=== PATIENT | female | born 1950 | race Hispanic/Latino ===

== ENCOUNTER 2016-05-27 14:26 | Inpatient (IN) | payer OTHER ==
[~2016-05-27] VITALS: Ht 149.9 cm; Wt 52.8 kg
[~2016-05-27 14:26] MED LIST: ALENDRONATE SOD70 M1 PO; ALENDRONATE SOD70 M2 PO; AZITHROMYCIN500 M3 PO; BACTRIM DS 8001 TAB PO; CELEBREX100 M1 PO; CELEBREX100 MG PO; CITALOPRAM HBR20 MG PO; CYCLOBENZAPRINE10 M1 PO; CYCLOBENZAPRINE10 M3 PO; DILAUDID2 MG PO; FENTANYL TR50 MCG/HR TOP; FLEXERIL10 MG PO; FUROSEMIDE20 M1 PO; FUROSEMIDE20 MG PO; GABAPENTIN300 M2 PO; GENVOYA TABLET1 EACH PO; IMODIUM A-D2 M1 PO; IMODIUM2 MG PO; LASIX40 M1 PO; LUNESTA3 M1 PO; LUNESTA3 MG PO; METOCLOPRAMIDE5 MG PO; MORPHINE SULFAT15 M4 PO; MULTIPLE VITAM1 EAC2 PO; OMEPRAZOLE40 MG PO; OS-CAL 500+D31 EAC1 PO; OXYCODONE HCL15 M1 PO; PANTOPRAZOLE SO40 M1 PO; POTASSIUM CHLO10 ME1 PO; POTASSIUM CHLO10 ME4 PO; PREDNISONE10 M2 PO; PREDNISONE10 MG PO; PROAIR HFA8.5 GM INH; PROPRANOLOL HCL20 M1 PO; REGLAN5 MG PO; ROXICODONE5 MG PO; SKELAXIN800 M1 PO; STRIBILD1 TAB PO; VALIUM2 MG PO; VALIUM5 M1 PO; VALTREX1000 MG PO; ZITHROMAX500 MG PO; ZOFRAN 4 MG TABL4 MG PO
--- NOTE | 2016-05-27 14:32 | NUR ---
65 Y/O FEMALE C/O PAIN TO L LOWER BACK S/P FALL A FEW DAYS AGO. STATES SHE DOESNT REMEMBER WHY SHE FELL BUT SHE THINKS SHE TRIPPED. STATES "I AM LOSING MY MEMORY". WENT TO [facility] TODAY AND WAS ADVISED TO COME TO ED. DENIES OTHER INJURIES OR COMPLAINTS. STATES PAIN IS IN LOW L BACK AND RADIATES DOWN L LEG.
--- NOTE | 2016-05-27 14:33 | NUR ---
PT STATES SHE TOOK PERCOCET AT 0500 .
--- NOTE | 2016-05-27 15:40 | ED MVC/FALL/TRAUMA COMPLAINT ---
History of Present Illness General Chief Complaint: Fall Stated Complaint: FALL LFT BACK PAIN Source: patient Exam Limitations: no limitations Allergies Coded Allergies: No Known Allergies (05/27/16) Reconcile Medications Albuterol Sulfate (Albuterol Sulfate Hfa) 90 MCG HFA.AER.AD 2 PUFF INH PRN SHORTNESS OF BREATH (Reported) 90 MCG PER PUFF Alendronate Sodium 70 MG TABLET 1 TAB PO QSUN OSTEOPOROSIS (Reported) in the morning, at least 30 minutes before the first food, beverage, or medication of the day CALCIUM CARBONATE/VITAMIN D3 (Os-Nathaniel 500+D3 Caplet) 500 MG-200 TABLET 1 TAB PO DAILY SUPPLEMENT (Reported) Celecoxib (Celebrex) 100 MG CAPSULE 1 CAP PO BID ARTHRITIS - LOWER BACK ( Reported) Citalopram Hydrobromide (Citalopram HBr) 20 MG TABLET 1 TAB PO DAILY MENTAL HEALTH (Reported) Cyclobenzaprine HCl 10 MG TABLET 1 TAB PO QPM MUSCLE RELAXER (Reported) Elviteg/Samia/Emtric/Tenofo Ala (Genvoya Tablet) 150 MG-150 MG-200 MG-10 MG TABLET 1 TAB PO DAILY ANTIVIRAL (Reported) Eszopiclone (Lunesta) 3 MG TABLET 1 TAB PO QPM SLEEP (Reported) Furosemide (Lasix) 40 MG TABLET 1 TAB PO QWED DIURETIC (Reported) Furosemide 20 MG TABLET 1 TAB PO AD DIURETIC (Reported) Gabapentin 300 MG CAPSULE 1 CAP PO TID NERVE PAIN (Reported) Loperamide HCl (Imodium A-D) 2 MG TABLET 1 TAB PO PRN DIARRHEA (Reported) NOT MORE THAN 8/DAY Multivitamin (Multiple Vitamins) 1 EACH TABLET 1 TAB PO DAILY SUPPLEMENT ( Reported) Ondansetron (Zofran 4 MG Tablet) 4 MG TAB 1 TAB PO Q8P PRN NAUSEA/VOMITING ( Reported) Oxycodone HCl 15 MG TABLET 1 TAB PO TID CHRONIC PAIN (Reported) Pantoprazole Sodium 40 MG TABLET.DR 1 TAB PO DAILY GI (Reported) Potassium Chloride 10 MEQ TABLET.ER 1 TAB PO DAILY SUPPLEMENT (Reported) Propranolol HCl 20 MG TABLET 1 TAB PO QAM MIGRAINES (Reported) Valacyclovir HCl (Valtrex) 1,000 MG TABLET 1 TAB PO DAILY HERPES SIMPLEX ( Reported) Triage Note: 65 Y/O FEMALE C/O PAIN TO L LOWER BACK S/P FALL A FEW DAYS AGO. STATES SHE DOESNT REMEMBER WHY SHE FELL BUT SHE THINKS SHE TRIPPED. STATES "I AM LOSING MY MEMORY". WENT TO [facility] TODAY AND WAS ADVISED TO COME TO ED. DENIES OTHER INJURIES OR COMPLAINTS. STATES PAIN IS IN LOW L BACK AND RADIATES DOWN L LEG. Triage Nurses Notes Reviewed? yes HPI: This patient is a 65-year-old female with a past medical history including HIV, and COPD who presented to the emergency department today accompanied by her daughter for evaluation of multiple complaints. This patient was hospitalized here in the emergency department in April 2016 for a COPD exacerbation. The patient's daughter reported that her shortness of breath has been, "much better, " over the last week. The patient reported that she has a dry, chronic cough. No sputum production. The patient also reported that she has been having 2-3 episodes of brown diarrhea with no blood in the stool over the last month and a half. The patient's daughter reported that she did have a stool culture done while she was admitted in the hospital and was evaluated for C. difficile which was negative. The patient reported that over the last 4 days, since Monday, she has been having left-sided lower back pain which shoots down her left leg into her foot. The patient reported that occasionally the pain radiates to her right lower back. When the patient is moving or walking around, the pain gets up to a 9 out of 10. She denied pain when she is sitting still. The patient walks at baseline with a walker. The patient did have a prior hip fracture which was not surgical. She went to rehabilitation for a month after the fracture occurred. The patient denied any numbness or tingling in her extremity. The patient does have chronic back pain for which she takes oxycodone. The oxycodone has not been helping this pain. The patient also reported that she has fallen several times since Monday. She denied hitting her head or losing consciousness. She reported that she falls onto one side or the other. The patient lives with her daughter and her granddaughter who always able to help her after the fall. The patient's daughter reported that she has never lost consciousness. The patient is denying any headaches, head pain, neck pain. She did report that she sometimes gets floaters in front of her eyes. No blurry vision. The patient denied any chest pain, abdominal pain, nausea, vomiting, saddle paresthesia, or urinary incontinence. She has been having chills, but no fevers. The patient's daughter did report that she has defecated on herself several times over the last month because she feels an urgency to move her bowels with the diarrhea. Patient reported that she always knows that she has to move her bowels, but is unable to get to the toilet in time. (DAWIT CORBIN,KAJAL) Vital Signs & Intake/Output Vital Signs & Intake/Output Vital Signs Date Time Temp Pulse Resp B/P Pulse O2 O2 Flow FiO2 Ox Delivery Rate 05/28 1108 122/62 05/28 1000 Room Air 05/28 0902 94 Room Air 05/28 0832 99.2 81 20 108/72 97 Room Air 05/28 0800 94 Room Air Room Air 05/28 0415 98.7 69 20 128/75 98 Room Air Room Air 05/28 0306 98.8 63 18 133/66 97 05/28 0010 100.2 78 20 118/56 98 Room Air 05/27 2107 99.8 78 20 120/57 97 Room Air 05/27 1809 99.4 97 18 130/60 96 05/27 1800 98 Room Air ED Intake and Output 05/28 0000 05/27 1200 Intake Total 1000 Output Total Balance 1000 Intake, IV 1000 Patient 140 lb Weight Past History Travel History Traveled to [place] past 21 day No Medical History Any Pertinent Medical History? see below for history Neurological: migraine EENT: allergies Cardiovascular: NONE Respiratory: asthma, bronchitis, COPD, emphysema, pneumonia Gastrointestinal: GERD Hepatic: NONE Renal: NONE Musculoskeletal: disk herniation, osteoarthritis Psychiatric: anxiety, depression Endocrine: NONE Blood Disorders: anemia, HIV AML Cancer(s): leukemia WE[employer] ME[employer]IC/Reproductive: HIV, GENITAL WARTS Other Medical Hx: HIV last CDR 900 in 03/04; No known viral load History of MRSA: No History of VRE: Yes History of CDIFF: No Pneumonia Vaccine: 02/19/15 Influenza Vaccine: 02/20/16 Surgical History Surgical History: non-contributory Psychosocial History Who do you live with Daughter Services at Home Nursing What is your primary language Gambian Tobacco Use: Current Daily Use Daily Tobacco Use Amount/Type: =< 4 Cigarettes daily Family History Family History, If Any: MOTHER (Breast cancer in her 60s, DM). FH: breast cancer FH: diabetes mellitus Hx Contributory? No (KAJAL PASTOR PA-C) Review of Systems Review of Systems Constitutional: Reports: see HPI. Eyes: Reports: see HPI. Ears, Nose, Throat, Mouth: Reports: no symptoms. Respiratory: Reports: see HPI. Cardiovascular: Reports: no symptoms. Gastrointestinal/Abdominal: Reports: see HPI. Genitourinary: Reports: no symptoms. Musculoskeletal: Reports: see HPI. Skin: Reports: no symptoms. Neurological/Psychological: Reports: no symptoms. All Other Systems: Reviewed and Negative (KAJAL PASTOR PA-C) Physical Exam Physical Exam General Appearance: well developed/nourished, no apparent distress, alert, awake Comments: Well-developed well-nourished person in no acute distress HEENT: Normal EENT exam, head normocephalic/atraumatic with no bony deformities/ step-offs of the skull, moist mucous membranes, no tenderness to palpation over the scalp Pupils equally round and reactive to light. Nose is atraumatic. Neck: Supple. No midline tenderness. Full range of motion Back: Normal inspection with no bony or muscular deformities. Midline tenderness over the lumbar spine. Left-sided lumbar paraspinal musculature tenderness. No CVA tenderness. Cardiovascular: Regular rate and rhythm with no murmurs, rubs, or gallops. No JVD. No carotid bruits Respiratory: Chest nontender. No respiratory distress. Breath sounds clear to auscultation bilaterally with no wheezes, rales, rhonchi Abdomen: Soft. Nondistended. Normoactive bowel sounds. No organomegaly. Mild tenderness to palpation in the left lower quadrant with no rebound or guarding. Negative Pelayo sign. Negative Rovsing sign. No McBurney's point tenderness. Extremity: No edema, no calf tenderness to palpation, normal and equal pulses. Neuro: Alert oriented x3, cranial nerves II through XII grossly intact. No aphasia. No facial droop. No unilateral weakness Skin: No appreciable rash on exposed skin, skin is warm and dry. Psych: Mood and affect is normal (KAJAL PASTOR PA-C) Core Measures ACS in differential dx? No Severe Sepsis Present: No Septic Shock Present: No (CARLOS ENRIQUE PORRAS DO) Progress Differential Diagnosis: C/T/L spine injury, ext injury, ICH, spinal cord injury, syncope, seizure disorder, C. difficile, gastroenteritis, sciatica, disc herniation Diagnostic Imaging: Viewed by Me: Radiology Read, CT Scan. Discussed w/RAD: Radiology Read, CT Scan. Radiology Impression: PATIENT: CAYETANO MIKE PRESENT AGE: 65 PATIENT ACCOUNT NO: [id number] : 49 LOCATION: ER ORDERING PHYSICIAN: KAJAL PASTOR PA-C SERVICE DATE: 05/27/16 EXAM TYPE: CAT - CT HEAD WO IV CONTRAST EXAMINATION: CT HEAD WITHOUT CONTRAST CLINICAL INFORMATION: 65-year-old woman with altered mental status and memory loss. COMPARISON: Head CT 07/28/2013 TECHNIQUE: 2.5 [address] slices were obtained from the skull base to the vertex. No intravenous contrast was administered. DLP: 529.16 mGy-cm FINDINGS: There is no evidence of acute infarct , mass, or hemorrhage. The patel-white matter junction and cortical ribbon are well defined throughout the cerebrum. No intra-axial or extra-axial fluid collections are seen. There is some enlargement of the ventricles and sulci with an appearance consistent with moderate cerebral atrophy, likely consistent with the patient?s age. This is not changed. There is also some periventricular hypodensity, left more than right, with an appearance consistent with microvascular ischemic disease, moderate in degree. This has slightly increased since the prior exam. There is no midline shift. The brain stem and cerebellum are grossly unremarkable. No fractures or concerning osseous lesions are seen. The orbits and globes are normal. The sinuses and mastoid air cells are clear. The scalp and superficial soft tissues are unremarkable. There is overall no significant change from the prior exam. IMPRESSION: No acute findings. Moderate brain atrophy and microvascular ischemic disease. DICTATED BY: ADRIANA GONGORA MD DATE/TIME DICTATED:05/27/161644 LICENSE INSPECTOR:JESSI DATE/TIME TRANSCRIBED:05/27/161644 CONFIDENTIAL, DO NOT COPY WITHOUT APPROPRIATE AUTHORIZATION. <Electronically signed in Other Vendor System> SIGNED BY: ADRIANA GONGORA MD 05/27/16 9319, PATIENT: CAYETANO MIKE PRESENT AGE: 65 PATIENT ACCOUNT NO: [id number] : 49 LOCATION: ER ORDERING PHYSICIAN: KAJAL PASTOR PA-C SERVICE DATE: 05/27/16 EXAM TYPE: RAD - XRY-HIP 2-3 VIEWS, LEFT EXAMINATION: XR HIP, LEFT CLINICAL INFORMATION: Left hip pain. COMPARISON: None TECHNIQUE: AP neutral and frog-leg lateral views of the left hip are provided. FINDINGS: Bones and soft tissues are normal. No fracture. Alignment is anatomic. Hip joint space is maintained. IMPRESSION: Unremarkable left hip radiographs without evidence of acute injury. DICTATED BY: GAGANDEEP MOJICA MD DATE/TIME DICTATED:05/27/161818 LICENSE INSPECTOR:JESSI DATE/TIME TRANSCRIBED:05/27/161818 CONFIDENTIAL, DO NOT COPY WITHOUT APPROPRIATE AUTHORIZATION. <Electronically signed in Other Vendor System> SIGNED BY: GAGANDEEP MOJICA MD 05/27/161824, PATIENT: CAYETANO MIKE PRESENT AGE: 65 PATIENT ACCOUNT NO: [id number] : 49 LOCATION: [facility] ORDERING PHYSICIAN: KAJAL PASTOR PA-C SERVICE DATE: 05/27/16 EXAM TYPE: CAT - CT ABD & PELVIS W/O IV CONTRAS EXAMINATION: CT ABDOMEN AND PELVIS WITHOUT CONTRAST CLINICAL INFORMATION: Abdominal pain. COMPARISON: CT scan abdomen pelvis 06/18/2013 TECHNIQUE: Multidetector volumetric imaging was performed from the superior aspect of the liver through the pubic symphysis. Sagittal and coronal reformatted images were obtained on the technologist's workstation. DLP: 255.54 mGy-cm. FINDINGS: LUNG BASES: The visualized lung bases are unremarkable. LIVER, GALLBLADDER, AND BILIARY TREE: The liver is normal in size, shape, and attenuation. No focal hepatic lesion or biliary ductal dilatation is present. Gallbladder are unremarkable. Chronic dilatation of the extrahepatic CBD to a diameter of 1 cm unchanged since CAT scan of 06/10/2013. No calcified stone within the duct. PANCREAS: Unremarkable. SPLEEN: Unremarkable. ADRENAL GLANDS: Unremarkable. KIDNEYS AND URETERS: The kidneys are normal in size, shape, and attenuation. No hydronephrosis, hydroureter, or calculi seen. No perinephric stranding. BLADDER: Unremarkable. GASTROINTESTINAL TRACT: Diffuse diverticulosis of the colon. No diverticulitis. No acute change of the bowel. No bowel obstruction. No bowel wall thickening or edema. Moderate volume of stool throughout the colon. The appendix is normal. The small bowel loops are unremarkable. MESENTERY: No inflammation. No free air or free fluid. ABDOMINAL WALL: No significant hernia is appreciated. LYMPH NODES : Normal. VASCULAR: Scattered vascular wall calcifications of the aorta without aneurysm. No vascular calcification at the origin of the celiac axis or SMA. PELVIC VISCERA: Uterus is anteverted. No adnexal abnormality. OSSEOUS STRUCTURES : Degenerative irregularity at the endplates at L4-L5 and L5-S1 with subchondral sclerosis of the bone IMPRESSION: No acute abnormality CT scan abdomen pelvis. Diverticulosis of the colon without diverticulitis. DICTATED BY: MARLENI MCDONALD MD DATE/TIME DICTATED:05/27/162326 LICENSE INSPECTOR:JESSI DATE/TIME TRANSCRIBED:05/27/162326 CONFIDENTIAL, DO NOT COPY WITHOUT APPROPRIATE AUTHORIZATION. <Electronically signed in Other Vendor System> SIGNED BY: MARLENI MCDONALD MD 05/27/162338 CXR Impression: PATIENT: CAYETANO MIKE PRESENT AGE: 65 PATIENT ACCOUNT NO: [id number] : 49 LOCATION: [facility] ORDERING PHYSICIAN: KAJAL PASTOR PA-C SERVICE DATE: 05/27/16 EXAM TYPE: RAD - XRY-CHEST XRAY, PA AND LATERAL EXAMINATION: XR CHEST CLINICAL INFORMATION: Altered mental status and cough. Rule out pneumonia. COMPARISON: Prior chest x-ray dated 2015. Chest CT from 09/05/2015. TECHNIQUE: PA and lateral views of the chest were obtained. FINDINGS: No airspace opacities or pleural effusions are seen. Emphysematous changes are noted with attenuation of the upper lung zone markings and flattening of the hemidiaphragms on the lateral projection. The cardiomediastinal silhouette is normal. No acute osseous abnormality is seen. IMPRESSION: Emphysema. Clear lungs. DICTATED BY: RUPERT DELACRUZ MD DATE/TIME DICTATED:05/27/161817 LICENSE INSPECTOR:CHEMO.CARTER DATE/TIME TRANSCRIBED:1817 CONFIDENTIAL, DO NOT COPY WITHOUT APPROPRIATE AUTHORIZATION. < Electronically signed in Other Vendor System> SIGNED BY: RUPERT DELACRUZ MD 05/27/16 182 Comments: 05/27/2016 6:02:42 PM: Dr. Porras was at the patient's bedside oozs-[id number]-chod valuation. He placed an EJ for blood draw. (DAWIT CORBIN,KAJAL) Plan of Care: Orders Procedure Date/time Status Regular Diet 05/28 B Active CULTURE,STOOL 05/28 1045 Active C.DIFFICILE 05/28 1025 Active PT Evaluate & Treat 05/28 924 Active RT: Evaluation 05/28 09 Active Weight 05/28 0641 Active Pain Treatment and Response 05/28 0513 Active NUTRITIONAL CONSULT 05/28 0608 Active BASIC ELECTROLYTES PLUS BUN&CR 05/28 0600 Complete Vital Signs 05/28 0543 Active Teach/Educate 05/28 05 Active Nutritional Intake, Monitor 05/28 05 Active Isolation 05/28 05 Active Intake & Output 05/28 0543 Active Patient Care Conference 05/28 0543 Active Activity/Ambulation 05/28 0543 Active EKG 05/28 0226 Active Pathway - chart 05/28 0218 Active House Staff 05/28 0218 Active Code Status 05/28 0218 Active POTASSIUM 05/28 0216 Complete Saline Lock 05/28 0053 Active Misc Message 05/28 0053 Active ED Holding Orders 05/28 0053 Active Admit to inpatient 05/28 0053 Active Vital Signs 05/28 0053 Active Code Status 05/28 0053 Complete Patient Data 05/28 0028 Active TRC EVALUATION (GEN) 05/28 UNK Complete THERAPIST ORDERS 05/28 UNK Complete Therapeutic Activities 05/28 UNK Complete PT Eval 05/28 UNK Complete VTE Mechanical Prophylaxis 05/28 UNK Active Precautions 05/28 UNK Active LACTIC ACID 05/27 1910 Active Intake & Output 05/27 1827 Active CULTURE,STOOL 05/27 1613 Active C.DIFFICILE 05/27 1613 Active CULTURE,URINE 05/27 1610 Active BLOOD CULTURE 05/27 1610 Active URINALYSIS 05/27 1610 Complete LACTIC ACID 05/27 1610 Complete COMPREHENSIVE METABOLIC PANEL 05/27 1610 Complete CBC WITHOUT DIFFERENTIAL 05/27 1610 Complete Current Medications Sig/Solitario Start time Last Medication Dose Stop Time Status Admin Cyclobenzaprine HCl 10 MG QPM 05/28 2200 AC (Flexeril 10MG Tab) Loperamide HCl 2 MG DAILY 05/28 1000 AC (Imodium) 06/02 0959 Nicotine 14 MG DAILY 05/28 1000 AC (Nicotine Cq) Non-Formulary 0 SEE ADMIN CRITERIA 05/28 0930 CAN Medication (NON FORMULARY) Acetaminophen 650 MG Q6P PRN 05/28 0630 AC (Tylenol) Albuterol Sulfate 2 PUF Q6-PRN PRN 05/28 314 AC (Ventolin) Non-Formulary 0 SEE ADMIN CRITERIA 05/28 314 UNV Medication (NON FORMULARY) Laboratory Tests 05/28/16 0647: Anion Gap 8, Estimated GFR > 60, BUN/Creatinine Ratio 13.3 05/28/16 0308: 05/28/16 0215: Sodium Cancelled, Potassium Cancelled, Chloride Cancelled, Carbon Dioxide Cancelled, Anion Gap Cancelled, BUN Cancelled, Creatinine Cancelled, BUN/ Creatinine Ratio Cancelled 05/27/162209: Urinalysis LIGHT H, Urine Color YEL, Urine Clarity CLEAR, Urine pH 7.5, Ur Specific [place] 1.010, Urine Protein NEG, Urine Ketones NEG, Urine Nitrite NEG, Urine Bilirubin NEG, Urine Urobilinogen 2.0 H, Ur Leukocyte Esterase TRACE H, Ur Microscopic SEDIMENT EXAMINED, Urine RBC RARE, Urine WBC 3-5 H, Ur Epithelial Cells MOD H, Urine Mucus FEW, Urine Hemoglobin TRACE-INTACT, Urine Glucose NEG 05/27/16 180: Anion Gap 10, Estimated GFR > 60, BUN/Creatinine Ratio 16.7, Glucose 97, Lactic Acid 1.7, Calcium 8.5, Total Bilirubin 0.6, AST 40 H, ALT 50, Alkaline Phosphatase 81, Total Protein 5.7 L, Albumin 3.2 L, Globulin 2.5, Albumin/ Globulin Ratio 1.3, CBC w Diff MAN DIFF ORDERED, RBC 3.71 L, MCV 105.5 H, MCH 35.0 H, RDW 13.9, MPV 7.7, Gran % 80.9 H, Lymphocytes % 10.8 L, Monocytes % 7.8, Eosinophils % 0.4, Basophils % 0.1, Absolute Granulocytes 14.0 H, Absolute Lymphocytes 1.9, Absolute Monocytes 1.4 H, Absolute Eosinophils 0.1, Absolute Basophils 0, Platelet Estimate ADEQUATE, Poikilocytosis 1+, Stomatocytes 1+, PUBS MCHC 33.1 Microbiology 05/28 1253 STOOL: Clostridium difficile Toxin A & B - RECD 05/28 1045 STOOL: Stool Culture - ORD 05/27 2209 URINE ROUT: Urine Culture - RES 05/27 1821 BLOOD: Blood Culture - RES 05/27 180 BLOOD: Blood Culture - RES 05/27 1613 STOOL: Clostridium difficile Toxin A & B - ORD 05/27 161 STOOL: Stool Culture - ORD Departure Departure Condition: Stable Clinical Impression Primary Impression: Hypokalemia Secondary Impressions: Altered mental status, unspecified Qualifiers: Altered mental status type: unspecified Qualified Code: R41.82 - Altered mental status, unspecified Leukocytosis Qualifiers: Leukocytosis type: unspecified Qualified Code: D72.829 - Elevated white blood cell count, unspecified Referrals: HAYLIE WORKMAN APRN (PCP/Family) Departure Forms: Customer Survey General Discharge Information Admission Note Spoke With: MIGUEL ANGEL CARBAJAL,[facility] Documentation of Exam: Documentation of any treatments & extenuating circumstances including Concerns Regarding Discharge (functional status, medication knowledge or non-compliance, living conditions, etc.) that warrant an admission rather than observation: [ This patient is a 65-year-old female with past medical history including COPD and HIV who presented to the emergency department today for evaluation of multiple complaints. She has had a more dramatic decreasing cognitive decline according to her daughter. She has had multiple falls over the last week. The patient is ambulating below her baseline due to pain due to her falls. Potassium here in the emergency department 2.9. Leukocytosis based on CBC. This patient will need to be admitted to the emergency department for trend labs , follow-up blood cultures, potassium repletion, IV fluids, pain management, PT consultation and close monitoring. This patient is a poor candidate for outpatient treatment. Premature discharge could prove medically harmful.] (DAWIT CORBIN,KAJAL) Departure Disposition: STILL A PATIENT PA/STEAM PRESSURE CHAMBER OPERATOR Co-Sign Statement Statement: ED Attending supervision documentation- [X] I saw and evaluated the patient. I have also reviewed all the pertinent lab results and diagnostic results. I agree with the findings and the plan of care as documented in the PA's/STEAM PRESSURE CHAMBER OPERATOR's documentation. [] I have reviewed the ED Record and agree with the PA's/STEAM PRESSURE CHAMBER OPERATOR's documentation. [] Additions or exceptions (if any) to the PAs/STEAM PRESSURE CHAMBER OPERATOR's note and plan are summarized below: [ Procedure A right external jugular line was put in by me.] (CARLOS ENRIQUE PORRAS DO) PA/STEAM PRESSURE CHAMBER OPERATOR Co-Sign Statement Statement: ED Attending supervision documentation- [] I saw and evaluated the patient. I have also reviewed all the pertinent lab results and diagnostic results. I agree with the findings and the plan of care as documented in the PA's/STEAM PRESSURE CHAMBER OPERATOR's documentation. [x] I have reviewed the ED Record and agree with the PA's/STEAM PRESSURE CHAMBER OPERATOR's documentation. [] Additions or exceptions (if any) to the PAs/STEAM PRESSURE CHAMBER OPERATOR's note and plan are summarized below: [] (MARC CARBAJAL,MARILIN Ruiz)
--- NOTE | 2016-05-27 15:47 | NUR ---
TRIAGE NOTE ACKNOWLEDGED AND RN CARE ASSUMED. PT EVALUATED BY KAJAL MCGEE
--- NOTE | 2016-05-27 16:54 | CT SCAN REPORT ---
EXAMINATION: CT HEAD WITHOUT CONTRAST CLINICAL INFORMATION: 65-year-old woman with altered mental status and memory loss. COMPARISON: Head CT 07/28/2013 TECHNIQUE: 2.5 [address] slices were obtained from the skull base to the vertex. No intravenous contrast was administered. DLP: 529.16 mGy-cm FINDINGS: There is no evidence of acute infarct, mass, or hemorrhage. The patel-white matter junction and cortical ribbon are well defined throughout the cerebrum. No intra-axial or extra-axial fluid collections are seen. There is some enlargement of the ventricles and sulci with an appearance consistent with moderate cerebral atrophy, likely consistent with the patient?s age. This is not changed. There is also some periventricular hypodensity, left more than right, with an appearance consistent with microvascular ischemic disease, moderate in degree. This has slightly increased since the prior exam. There is no midline shift. The brain stem and cerebellum are grossly unremarkable. No fractures or concerning osseous lesions are seen. The orbits and globes are normal. The sinuses and mastoid air cells are clear. The scalp and superficial soft tissues are unremarkable. There is overall no significant change from the prior exam. IMPRESSION: No acute findings. Moderate brain atrophy and microvascular ischemic disease.
--- NOTE | 2016-05-27 16:59 | CT SCAN REPORT ---
EXAMINATION: CT LUMBAR SPINE WITHOUT CONTRAST CLINICAL INFORMATION: Back pain. Rule out cauda equina syndrome and fracture. COMPARISON: Multiple priors, most recently MRI from 03/06/[address] from 12/01/2013. TECHNIQUE: Helical non-contrast CT images were obtained through the lumbar spine and 1.25 and 2.5 mm axial reconstructions were reviewed along with sagittal and coronal MPRs. DLP: 315 mGy-cm. FINDINGS: There is no acute fracture or subluxation. Slight levoscoliosis of the lumbar spine. There is disc space narrowing and irregularity at L4-L5, with similar appearance to the prior study from 2013. There is endplate sclerosis and erosive change. This appears chronic. Increased sclerosis is seen at the L5-S1 level, with vacuum disc phenomenon noted. Vascular calcifications are seen. No hydronephrosis or nephrolithiasis. No retroperitoneal lymphadenopathy seen. SPINAL LEVELS: T12-L1: Unremarkable. L1-L2: Unremarkable. L2-L3: There is a small disc bulge. Mild hypertrophy of the ligamentum flavum. No significant spinal canal narrowing. Mild bilateral neuroforaminal narrowing. L3-L4: Small disc bulge. Mild facet arthropathy with hypertrophy of the ligamentum flavum. Mild left neuroforaminal narrowing. Mild central canal narrowing. L4-L5: Moderate facet arthropathy with hypertrophy of the ligamentum flavum. Broad disc bulge. Bilateral moderate neuroforaminal narrowing. Moderate spinal canal narrowing. Similar to prior MRI. L5-S1: Small disc bulge. Bilateral facet arthropathy. IMPRESSION: Multilevel degenerative changes of the spine with multilevel spondylosis, most prominent at L4-L5. Moderate spinal canal narrowing is seen at this level. This is similar to the prior MRI, although MR is more sensitive for subtle disease. No evidence of acute fracture.
--- NOTE | 2016-05-27 18:15 | NUR ---
18 G GARIMA PLACED IN REJ BY DR PORRAS. BLOOD DRAWN DIRECTED BY SAME
--- NOTE | 2016-05-27 18:22 | RADIOLOGY REPORT ---
EXAMINATION: XR CHEST CLINICAL INFORMATION: Altered mental status and cough. Rule out pneumonia. COMPARISON: Prior chest x-ray dated 05/16/2016. Chest CT from 09/05/2015. TECHNIQUE: PA and lateral views of the chest were obtained. FINDINGS: No airspace opacities or pleural effusions are seen. Emphysematous changes are noted with attenuation of the upper lung zone markings and flattening of the hemidiaphragms on the lateral projection. The cardiomediastinal silhouette is normal. No acute osseous abnormality is seen. IMPRESSION: Emphysema. Clear lungs.
--- NOTE | 2016-05-27 18:25 | RADIOLOGY REPORT ---
EXAMINATION: XR HIP, LEFT CLINICAL INFORMATION: Left hip pain. COMPARISON: None TECHNIQUE: AP neutral and frog-leg lateral views of the left hip are provided. FINDINGS: Bones and soft tissues are normal. No fracture. Alignment is anatomic. Hip joint space is maintained. IMPRESSION: Unremarkable left hip radiographs without evidence of acute injury.
[2016-05-27 18:39] LABS: ABSOLUTE BASOPHIL COUNT 0 /CUMM (0.0-0.2); ABSOLUTE EOSINOPHIL COUNT 0.1 /CUMM (0.0-0.7); ABSOLUTE LYMPH COUNT 1.9 /CUMM (1.2-3.4); ABSOLUTE MONOCYTE COUNT 1.4 /CUMM (0.10-0.60); BASOPHIL % 0.1 % (0.0-2.0); EOSINOPHIL % 0.4 % (0-5); GRANULOCYTE % 80.9 % (42.2-75.2); HEMATOCRIT 39.2 % (37-47); MEAN CORPUSCULAR HGB CONC 33.1 G/DL (33.0-37.0); MEAN CORPUSCULAR VOLUME 105.5 FL (81.0-99.0); MEAN PLATELET VOLUME 7.7 FL (7.4-10.4); PLATELET COUNT 287 /CUMM (130-400); RBC DISTRIBUTION WIDTH 13.9 % (11.5-14.5); RED BLOOD CELL CT 3.71 /CUMM (4.20-5.40); WHITE BLOOD CELL COUNT 17.3 /CUMM (4.8-10.8)
--- NOTE | 2016-05-27 19:22 | NUR ---
CRITICAL TEST RESULTS [id number] CAYETANO MIKE 65 F TESTS AND RESULTS: POTASSIUM 2.9 Results received and read back by: NIKOLAY CRUM Results received date and time: 05/27/161921 The following provider was notified of the results, and read the results back: KAJAL MCGEE Notified date and time: 05/27/16 at 192
--- NOTE | 2016-05-27 19:53 | NUR ---
PT MEDICATED WITH 40 MEQ KCL PO AND STARTED ON 2 RUNS OF 10 MEQ KCL IN 100 ML X 2 IV, EACH OVER ONE HOUR.
--- NOTE | 2016-05-27 21:02 | NUR ---
2ND RUN OF 10 MEQ KCL IN 100 ML N/S STARTED IV OVER ONE HOUR
--- NOTE | 2016-05-27 22:45 | NUR ---
DAUGHTER CHANDAN: [phone]. MAY GIVE RESULTS OF TESTS TO HER
--- NOTE | 2016-05-27 23:39 | CT SCAN REPORT ---
EXAMINATION: CT ABDOMEN AND PELVIS WITHOUT CONTRAST CLINICAL INFORMATION: Abdominal pain. COMPARISON: CT scan abdomen pelvis 06/18/2013 TECHNIQUE: Multidetector volumetric imaging was performed from the superior aspect of the liver through the pubic symphysis. Sagittal and coronal reformatted images were obtained on the technologist's workstation. DLP: 255.54 mGy-cm. FINDINGS: LUNG BASES: The visualized lung bases are unremarkable. LIVER, GALLBLADDER, AND BILIARY TREE: The liver is normal in size, shape, and attenuation. No focal hepatic lesion or biliary ductal dilatation is present. Gallbladder are unremarkable. Chronic dilatation of the extrahepatic CBD to a diameter of 1 cm unchanged since CAT scan of 06/10/2013. No calcified stone within the duct. PANCREAS: Unremarkable. SPLEEN: Unremarkable. ADRENAL GLANDS: Unremarkable. KIDNEYS AND URETERS: The kidneys are normal in size, shape, and attenuation. No hydronephrosis, hydroureter, or calculi seen. No perinephric stranding. BLADDER: Unremarkable. GASTROINTESTINAL TRACT: Diffuse diverticulosis of the colon. No diverticulitis. No acute change of the bowel. No bowel obstruction. No bowel wall thickening or edema. Moderate volume of stool throughout the colon. The appendix is normal. The small bowel loops are unremarkable. MESENTERY: No inflammation. No free air or free fluid. ABDOMINAL WALL: No significant hernia is appreciated. LYMPH NODES: Normal. VASCULAR: Scattered vascular wall calcifications of the aorta without aneurysm. No vascular calcification at the origin of the celiac axis or SMA. PELVIC VISCERA: Uterus is anteverted. No adnexal abnormality. OSSEOUS STRUCTURES: Degenerative irregularity at the endplates at L4-L5 and L5-S1 with subchondral sclerosis of the bone IMPRESSION: No acute abnormality CT scan abdomen pelvis. Diverticulosis of the colon without diverticulitis.
--- NOTE | 2016-05-28 | NUR ---
PT SLEEPING. PT APPEARS COMFORTABLE. RESP UNLABORED. NO APPARENT DISTRESS.
--- NOTE | 2016-05-28 00:26 | History & Physical ---
GUILLERMO CARBAJAL,[facility] [place] 05/28/16 0025: General Information and HPI MD Statement: I have seen and personally examined CAYETANO MIKE and documented this H&P. The patient is a 65 year old F who presented with a patient stated chief complaint of dehydration Source of Information: patient, family, old records Exam Limitations: clinical condition, confusion, poor historian History of Present Illness: Patient is a 65 y/o F with PMHx of HIV on Genvoya (undetectable viral load in December 2014), AML in remission s/p chemotherapy (2007), HTN, COPD, chronic back pain and migraines, recently hospitalized for COPD exacerbation and diarrhea (-05/19/16) and treated with azithromycin and steroids, who presents with generalized weakness and recurrent falls x 1 week. Patient is unable to provide to accurate and detailed history and reports that she feels "dehydrated". Patient has had 3 falls in the past week. There was no head trauma or loss of consciousness. She reports left-sided lower leg pain which radiates down her left leg to her foot, exacerbated by movement and increasing up to 9-10 in terms of severity. She has chronic back pain at baseline for which she takes oxycodone , but current pain is new. She denies associated leg numbness or tingling. Patient ambulates with a walker at baseline. Of note, patient had a hip fracture which was felt to be nonsurgical and went to rehabilitation for a month. Patient 's daughter has noted a decline in her mental status and increasing confusion during this time. Patient reports malodor to her urine for the past few days. She denies dysuria, abdominal pain, nausea or vomiting. Patient has had the diarrhea for approximately 1.5 months and infectious work-up during previous admission was negative. Of note, patient was discharged on steroid taper on last admission which she completed the day prior to current presentation (05/27/16). Allergies/Medications Allergies: Coded Allergies: No Known Allergies (05/27/16) Home Med list Albuterol Sulfate (Albuterol Sulfate Hfa) 90 MCG HFA.AER.AD 2 PUFF INH PRN SHORTNESS OF BREATH (Reported) 90 MCG PER PUFF Alendronate Sodium 70 MG TABLET 1 TAB PO QSUN OSTEOPOROSIS (Reported) in the morning, at least 30 minutes before the first food, beverage, or medication of the day CALCIUM CARBONATE/VITAMIN D3 (Os-Nathaniel 500+D3 Caplet) 500 MG-200 TABLET 1 TAB PO DAILY SUPPLEMENT (Reported) Celecoxib (Celebrex) 100 MG CAPSULE 1 CAP PO BID ARTHRITIS - LOWER BACK ( Reported) Citalopram Hydrobromide (Citalopram HBr) 20 MG TABLET 1 TAB PO DAILY MENTAL HEALTH (Reported) Cyclobenzaprine HCl 10 MG TABLET 1 TAB PO QPM MUSCLE RELAXER (Reported) Elviteg/Samia/Emtric/Tenofo Ala (Genvoya Tablet) 150 MG-150 MG-200 MG-10 MG TABLET 1 TAB PO DAILY ANTIVIRAL (Reported) Eszopiclone (Lunesta) 3 MG TABLET 1 TAB PO QPM SLEEP (Reported) Furosemide (Lasix) 40 MG TABLET 1 TAB PO QWED DIURETIC (Reported) Furosemide 20 MG TABLET 1 TAB PO AD DIURETIC (Reported) Gabapentin 300 MG CAPSULE 1 CAP PO TID NERVE PAIN (Reported) Loperamide HCl (Imodium A-D) 2 MG TABLET 1 TAB PO PRN DIARRHEA (Reported) NOT MORE THAN 8/DAY Multivitamin (Multiple Vitamins) 1 EACH TABLET 1 TAB PO DAILY SUPPLEMENT ( Reported) Ondansetron (Zofran 4 MG Tablet) 4 MG TAB 1 TAB PO Q8P PRN NAUSEA/VOMITING ( Reported) Oxycodone HCl 15 MG TABLET 1 TAB PO TID CHRONIC PAIN (Reported) Pantoprazole Sodium 40 MG TABLET.DR 1 TAB PO DAILY GI (Reported) Potassium Chloride 10 MEQ TABLET.ER 1 TAB PO DAILY SUPPLEMENT (Reported) Propranolol HCl 20 MG TABLET 1 TAB PO QAM MIGRAINES (Reported) Valacyclovir HCl (Valtrex) 1,000 MG TABLET 1 TAB PO DAILY HERPES SIMPLEX ( Reported) Past History Travel History Traveled to [place] past 21 day No Medical History Neurological: migraine EENT: allergies Cardiovascular: NONE Respiratory: asthma, bronchitis, COPD, emphysema, pneumonia Gastrointestinal: GERD Hepatic: NONE Renal: NONE Musculoskeletal: disk herniation, osteoarthritis Psychiatric: anxiety, depression Endocrine: NONE Blood Disorders: anemia Cancer(s): AML [employer] COMPENSATION/Reproductive: HIV (undetectable load (12/2014)), GENITAL WARTS History of MRSA: No History of VRE: Yes History of CDIFF: No Pneumonia Vaccine: 02/19/15 Influenza Vaccine: 02/20/16 Surgical History Surgical History: non-contributory Past Family/Social History Family History Relations & Conditions if any MOTHER (Breast cancer in her 60s, DM). FH: breast cancer FH: diabetes mellitus Psychosocial History Where do you live? Home Who Do You Live With? child (daughter) Services at Home: Nursing Smoking Status: Current Everyday Smoker (less than 5 cigarettes daily) Illicit Drug Use: history of IV crack cocaine use Functional Ability ADLs Independent: dressing, eating, toileting, bathing. Ambulation: walker Review of Systems Review of Systems Constitutional: Reports: chills, weakness. Denies: fever. EENTM: Reports: visual changes. Denies: blurred vision (floaters). Cardiovascular: Denies: chest pain. Respiratory: Reports: cough (chronic). GI: Reports: diarrhea. Denies: abdominal pain, constipation, nausea, vomiting. Genitourinary: Reports: no symptoms. Musculoskeletal: Reports: back pain, joint pain. Denies: neck pain. Skin: Reports: no symptoms. Neurological/Psychological: Reports: confusion. Denies: headache, numbness, tingling. Hematologic/Endocrine: Reports: no symptoms. Immunologic/Allergic: Reports: no symptoms. All Other Systems: Reviewed and Negative Exam & Diagnostic Data Last 24 Hrs of Vital Signs/I&O Vital Signs Date Time Temp Pulse Resp B/P Pulse O2 O2 Flow FiO2 Ox Delivery Rate 05/28 0306 98.8 63 18 133/66 97 05/28 0010 100.2 78 20 118/56 98 Room Air 05/27 2107 99.8 78 20 120/57 97 Room Air 05/27 1809 99.4 97 18 130/60 96 05/27 1800 98 Room Air 05/27 1430 98.1 81 20 147/80 95 Room Air Intake & Output 05/28 0800 05/28 0000 05/27 1600 Intake Total 1000 Output Total Balance 1000 Intake, IV 1000 Patient 63.503 kg Weight Physical Exam General Appearance Alert, Oriented X3, Mild Distress HEENT Dry Mucous Membranes Cardiovascular Regular Rate, Normal S1, Normal S2, No Murmurs, Gallops, Rubs Lungs Clear to Auscultation, Diminished Breath Sounds Abdomen Soft, Mild Diffuse Tenderness to Palpation, Tenderness to Palpation on Bilateral Lower Back and Gluteal Region, Positive Bowel Sounds Neurological Strength at 5/5 X4 Ext, No Gross Focal Deficits Noted, Right Leg Straight Leg Test Positive Extremities No Clubbing, No Cyanosis, No Edema Last 24 Hrs of Labs/Guy: Laboratory Tests 05/27/16 221: Urinalysis LIGHT H, Urine Color YEL, Urine Clarity CLEAR, Urine pH 7.5, Ur Specific [place] 1.010, Urine Protein NEG, Urine Ketones NEG, Urine Nitrite NEG, Urine Bilirubin NEG, Urine Urobilinogen 2.0 H, Ur Leukocyte Esterase TRACE H, Ur Microscopic SEDIMENT EXAMINED, Urine RBC RARE, Urine WBC 3-5 H, Ur Epithelial Cells MOD H, Urine Mucus FEW, Urine Hemoglobin TRACE-INTACT, Urine Glucose NEG 05/27/16 1805: Anion Gap 10, Estimated GFR > 60, BUN/Creatinine Ratio 16.7, Glucose 97, Lactic Acid 1.7, Calcium 8.5, Total Bilirubin 0.6, AST 40 H, ALT 50, Alkaline Phosphatase 81, Total Protein 5.7 L, Albumin 3.2 L, Globulin 2.5, Albumin/ Globulin Ratio 1.3, CBC w Diff MAN DIFF ORDERED, RBC 3.71 L, MCV 105.5 H, MCH 35.0 H, RDW 13.9, MPV 7.7, Gran % 80.9 H, Lymphocytes % 10.8 L, Monocytes % 7.8, Eosinophils % 0.4, Basophils % 0.1, Absolute Granulocytes 14.0 H, Absolute Lymphocytes 1.9, Absolute Monocytes 1.4 H, Absolute Eosinophils 0.1, Absolute Basophils 0, Platelet Estimate ADEQUATE, Poikilocytosis 1+, Stomatocytes 1+, PUBS MCHC 33.1 Microbiology 05/27 221 URINE ROUT: Urine Culture - RECD 05/27 1821 BLOOD: Blood Culture - RECD 05/27 1805 BLOOD: Blood Culture - RECD 05/27 1613 STOOL: Clostridium difficile Toxin A & B - ORD 05/27 161 STOOL: Stool Culture - ORD Diagnostic Data EKG Results Sinus rhythm HR 73 No significant change since previous tracing QTc 424 CXR Results Emphysema. Clear lungs. Other Results CT HEAD W/O CONTRAST: No acute findings. Moderate brain atrophy and microvascular ischemic disease. L HIP XR: Unremarkable left hip radiographs without evidence of acute injury. CT LUMBAR SPINE W/O CONTRAST: Multilevel degenerative changes of the spine with multilevel spondylosis, most prominent at L4-L5. Moderate spinal canal narrowing is seen at this level. This is similar to the prior MRI, although MR is more sensitive for subtle disease. No evidence of acute fracture. CT ABDOMEN/PELVIS W/O IV CONTRAST: No acute abnormality CT scan abdomen pelvis. Diverticulosis of the colon without diverticulitis. Assessment/Plan Assessment: 65 y/o with PMHx of HIV on Genvoya, COPD not on home oxygen and chronic back pain 2/2 osteoarthritis who presents with generalized weakness with recurrent falls and acute on chronic low back pain, found to be hypokalemic to 2.9. #Generalized weakness with recurrent falls: Likely secondary to deconditioning from multiple medical comorbidities. CT Head negative. Left XR Hip and Lumbar Spine CT negative for acute fracture. * PT eval. * Possible discharge to [facility] pending PT eval. #Acute on chronic back pain: Chronic back pain secondary to osteoarthritis c/b herniated disc. Acute exacerbation likely secondary to recurrent falls. Lumbar Spine CT with multilevel degenerative changes most prominent at L4-L5 and moderate spinal canal narrowing but with no evidence of acute fracture. * Continue oxycontin 10 mg PO TID. * Continue home celecoxib 100 mg PO BID, Flexeril 10 mg PO QPM and gabapentin 300 mg PO TID. #Hypokalemia: K 2.9 on admission. S/p 10 mEq of IV K and 40 mEq of PO K with improvement to 3.5. * Continue prior to admission K 10 mEq PO QD. * Resume home Lasix 20 mg PO QD in the AM. * Continue to monitor K and replete as needed. #Diarrhea: Chronic diarrhea that has been ongoing for 1.5 months. Most likely secondary to HIV medication, Genvoya, as diarrhea is a common reported side effect. Infectious work-up during previous admission including C. diff, Giardia and Cryptosporidium negative. * Continue prior to admision loperamide 2 mg PO QD. #Leukocytosis: WBC elevated to 17.3 on admission. Was 16.9 on discharge (). Most likely secondary to the prednisone taper which she completed the day prior to current admission (05/27/15). * NTD. #HIV: History of AIDS although last viral load was undetectable in December 2014. Followed by ID at [facility]. * Continue home Genvoya 1 tab PO QD. * Continue prophylactic home valacyclovir 1 g PO QD. #Depression: * Continue home citalopram 20 mg PO QD. #Nicotine dependence: Current everyday smoker. Smokes < 5 cigarettes per day. * Encourage smoking cessation. * Nicotine patch 14 mg administered. Diet: Regular DVT PPx: HSQ and ALPs CODE: DNR/DNI As Ranked By This Provider Problem List: 1. Hypokalemia 2. HIV (human immunodeficiency virus infection) 3. Recurrent falls 4. COPD (chronic obstructive pulmonary disease) 5. Generalized weakness 6. Leukocytosis Qualifiers Leukocytosis type: unspecified Qualified Code: D72.829 - Elevated white blood cell count, unspecified 7. Drug and toxin-induced diarrhea 8. Back pain, chronic 9. Osteoarthritis 10. Altered mental status, unspecified Qualifiers Altered mental status type: unspecified Qualified Code: R41.82 - Altered mental status, unspecified 11. Disc herniation Core Measures/Miscellaneous Acute Coronary Syndrome ACS Diagnosis: No Cerebrovascular Accident CVA/TIA Diagnosis: No Congestive Heart Failure CHF Diagnosis: No Venous Thromboembolism VTE Risk Factors: Acute medical illness, Age > 40, Smoking VTE Prophylaxis Ordered Inpt: Mech & Pharm No Mech VTE prophylaxis d/t: No contraindications No VTE Pharm Prophylaxis d/t: No contraindications VTE Diagnosis: No VTE Type: NONE VTE Confirmed by (Test): NONE Severe Sepsis Severe Sepsis Present: No Septic Shock Septic Shock Present: No Miscellaneous Documentation Attending Case Discussed With: ALEJANDRO MICHELLE [facility] Primary Care Physician: HAYLIE WORKMAN APRN Patient sees these Specialists [facility] Level of Patient Care: General Medicine KYLENANCRISTELA OLIVIER 05/28/16 0029: Resident Review Statement Resident Statement: examined this patient, discussed with internet assessor, agreed with internet assessor, discussed with family, reviewed EMR data (avail), discussed with nursing , discussed with case mgmt, reviewed images, amended to note Other Findings: 65-year-old woman, current smoker with a past medical history of HIV on Genvoya, COPD not on home oxygen, chronic pain on pain medications, depression, anxiety, AML was brought in by her daughter for chief complaint of a lateralized weakness , frequent falls. Upon discharge in May 19 patient continued to have watery diarrhea involved in this amounts on a daily basis which was moderately controlled by loperamide. Patient's is not clear about the natural course of her weakness (he remember on a daily basis his weakness progressively gotten worst. She has had frequent episodes of fall (most recently 3 episodes for the last 7 days). Patient denies any chest pain, palpitation, loss of consciousness , seizure-like activity associated with these falls. During the spells patient had mechanical trauma to her low back and left hip. Patient denies any fever, chills, GI/ symptoms except for recent malodorous/change in urine color and smell. Review of system patient is complaining of generalized fatigue, weakness and severe low back pain and left hip pain. Physical exam: comfortable, she is reluctant to move due to severe lower back pain. Head and neck: Dry mucous membranes. Lung: Scattered crackles and wheeze , and decreased air movement. Cardiovascular: S1 and S2 no murmur. Abdomen generalized mild tenderness. Extremities: Physical exam was remarkable for positive SLR 30-40 on the left side, severe tenderness to touch lower back. Neurology exam: Intact upper and lower muscle extremity strength and sensation. Vital signs: Temperature 100.2/blood pressure 118/56/pulse ox 98 in room air/ pulse rate 78 Pertinent data EKG: Pending WBC 17.3 with left shift but no bandemia MCV 105 hemoglobin 13 Potassium 2.9 A&P 65-year-old woman was admitted for hypokalemia dehydration weakness and mechanical fall. #1 dehydration: Inability patient was possibly related to poor oral intake. In this case increased GI loss is an important contributing factor. Hypokalemia was possibly secondary to GI loss and dehydration and poor oral intake. Patient is also on by mouth Lasix that could cause hypokalemia. * Admit to general med * Continue hydration with normal saline +20 mEq potassium * Potassium chloride tab by mouth daily 10 mEq * Started patient on loperamide 2 mg by mouth daily * Repeat electrolytes in the morning * Hold Lasix * Obtain stat EKG #2 mechanical fall and weakness * Fall precaution * PT assessment and treatment #3 back pain and fall * Tylenol for mild pain * Oxycodone 10 mg 3 times a day #4 HIV * Resume genvoya DVT prophylaxis heparin 5000 units every 8 hours subcutaneous DNR/DNI MIGUEL ANGEL CARBAJAL, [facility] 05/28/16 0636: Attending MD Review Statement Attending Statement Attending MD Statement: examined this patient, discuss w/resident/PA/[employer] CLAIMS ADJUSTER, agreed w/resident/PA/[employer] CLAIMS ADJUSTER Attending Assessment/Plan: 65 yo F smoker, with h/o HIV and AIDS on Genvoya (undetectable viral load Dec 2014), AML in remission s/p chemo (2007), HTN, COPD, chronic back pain on opiates, migraine, discharged on 05/19/16 after being treated for COPD exacerbation (azithro and prednisone taper) and diarrhea with negative work up, now returns for acute on chronic low back pain, weakness with recurrent mechanical falls over past 1 week. Reports pain radiating to lower extremity. Vitals stable. Exam: bilateral lower back tenderness just around gluteal region, SLR positive on right side. Nonfocal neuro exam. Labs: WBC 17.3, macrocytosis, K 2.9, bicarb 34, AST 40, UA clear, CXR: emphysema, CT head neg, Left hip Xray neg , CT lumbar spine degenerative changes, CT abd/pelvis neg. EKG: SR. 1. Weakness, deconditioning, acute on chronic low back pain ?sciatica and recurrent falls. Negative imaging. PT eval and possible STR. Pain management with opiates. 2. Hypokalemia in the setting of chronic diarrhea and Genvoya (ART). Repleted and repeat K 3.5. Continue IV fluids. Hold lasix and plan to resume in AM. 3. Leukocytosis likely steroid induced. Patient finished prednisone taper on May 27. 4. Chronic diarrhea. Resume loperamide. 5. HIV. Resume Genvoya. 6. Continue home meds valcyclovir, flexeril, protonix, gabapentin, celecoxib, citalopram and propranolol. 7. Smoking cessation counseling. Nicotine patch. DVT ppx Hep SC. DNR/I.
--- NOTE | 2016-05-28 01:42 | NUR ---
PT'S ASSIGNMENT 207
--- NOTE | 2016-05-28 03:07 | NUR ---
PT SLEEPING. AROUSES TO VERBAL SIMULATION. RESP UNLABORED. NO APPARENT DISTRESS
[2016-05-28 04:15] VITALS: BP 128/75
--- NOTE | 2016-05-28 06:37 | Admission Certification ---
Admission Certification Certification Statement - As attending physician, I certify that at the time of - admission, based on clinical presentation, severity of - symptoms, need for further diagnostic testing and - therapeutic interventions, and risk of adverse outcomes - without in-hospital treatment, in my clinical assessment, - this patient requires an acute hospital stay for a minimum - of two nights or longer. I have also considered psychsocial - factors such as support system, advanced age, financial - issues, cognitive issues, and failed out-patient treatments, - past re-admission history, safety of patient, and lack of - compliance as applicable. Specific rationale supporting this admission is: Hypokalemia, weakness, acute on chronic low back pain.
[2016-05-28 08:32] VITALS: BP 108/72
--- NOTE | 2016-05-28 14:52 | PN- Att Addend ---
Attending Addendum Attending Brief Note Patient seen and examined. Plan of care discussed with the medical team and the patient. Available lab work and radiology test reports were reviewed. Patient awake alert oriented and denies any chest pain fever or chills. She continues to have coughing with scant amount of sputum production. Please of left-sided lower back paiN 5 out of 10. Vital Signs Date Time Temp Pulse Resp B/P Pulse O2 O2 Flow FiO2 Ox Delivery Rate 05/28 1108 122/62 05/28 1000 Room Air 05/28 0902 94 Room Air 05/28 0832 99.2 81 20 108/72 97 Room Air 05/28 0800 94 Room Air Room Air 05/28 0415 98.7 69 20 128/75 98 Room Air Room Air 05/28 0306 98.8 63 18 133/66 97 05/28 0010 100.2 78 20 118/56 98 Room Air 05/27 2107 99.8 78 20 120/57 97 Room Air 05/27 1809 99.4 97 18 130/60 96 05/27 1800 98 Room Air Intake & Output 05/28 1600 05/28 0800 05/28 0000 Intake Total 1420 Output Total 200 350 Balance -200 -350 1420 Intake, IV 1300 Intake, Oral 120 Number 0 Bowel Movements Output, Urine 200 350 Patient 116 lb 116 lb Weight Exam: General: Patient awake alert oriented without any distress CVS: S1 plus S2 without any murmur or gallops Chest: Few scattered crepitation without any wheeze. There is no respiratory distress. 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: Awake alert oriented without any focal neuro deficit and follows command appropriately Extremities: No edema; no clubbing or cyanosis noted Laboratory Tests 05/28 05/28 05/28 0647 0308 0215 Chemistry Sodium (137 - 145 mmol/L) 140 Cancelled Potassium (3.5 - 5.1 mmol/L) 4.1 3.5 Cancelled Chloride (98 - 107 mmol/L) 105 Cancelled Carbon Dioxide (22 - 30 mmol/L) 27 Cancelled Anion Gap (5 - 16) 8 Cancelled BUN (7 - 17 mg/dL) 8 Cancelled Creatinine (0.5 - 1.0 mg/dL) 0.6 Cancelled Estimated GFR (>60 ml/min) > 60 BUN/Creatinine Ratio (7 - 25 %) 13.3 Cancelled 05/27 05/27 2210 1805 Chemistry Sodium (137 - 145 mmol/L) 139 Potassium (3.5 - 5.1 mmol/L) 2.9 *L Chloride (98 - 107 mmol/L) 95 L Carbon Dioxide (22 - 30 mmol/L) 34 H Anion Gap (5 - 16) 10 BUN (7 - 17 mg/dL) 10 Creatinine (0.5 - 1.0 mg/dL) 0.6 Estimated GFR (>60 ml/min) > 60 BUN/Creatinine Ratio (7 - 25 %) 16.7 Glucose (65 - 99 mg/dL) 97 Lactic Acid (0.7 - 2.1 mmol/L) 1.7 Calcium (8.4 - 10.2 mg/dL) 8.5 Total Bilirubin (0.2 - 1.3 mg/dL) 0.6 AST (14 - 36 U/L) 40 H ALT (9 - 52 U/L) 50 Alkaline Phosphatase (<127 U/L) 81 Total Protein (6.3 - 8.2 g/dL) 5.7 L Albumin (3.5 - 5.0 g/dL) 3.2 L Globulin (1.9 - 4.2 gm/dL) 2.5 Albumin/Globulin Ratio (1.1 - 2.2 %) 1.3 Hematology CBC w Diff MAN DIFF ORDERED WBC (4.8 - 10.8 /CUMM) 17.3 H RBC (4.20 - 5.40 /CUMM) 3.71 L Hgb (12.0 - 16.0 G/DL) 13.0 Hct (37 - 47 %) 39.2 MCV (81.0 - 99.0 FL) 105.5 H MCH (27.0 - 31.0 PG) 35.0 H RDW (11.5 - 14.5 %) 13.9 Plt Count (130 - 400 /CUMM) 287 MPV (7.4 - 10.4 FL) 7.7 Gran % (42.2 - 75.2 %) 80.9 H Lymphocytes % (20.5 - 51.1 %) 10.8 L Monocytes % (1.7 - 9.3 %) 7.8 Eosinophils % (0 - 5 %) 0.4 Basophils % (0.0 - 2.0 %) 0.1 Absolute Granulocytes (1.4 - 6.5 /CUMM) 14.0 H Absolute Lymphocytes (1.2 - 3.4 /CUMM) 1.9 Absolute Monocytes (0.10 - 0.60 /CUMM) 1.4 H Absolute Eosinophils (0.0 - 0.7 /CUMM) 0.1 Absolute Basophils (0.0 - 0.2 /CUMM) 0 Platelet Estimate (ADEQUATE) ADEQUATE Poikilocytosis 1+ Stomatocytes 1+ PUBS MCHC (33.0 - 37.0 G/DL) 33.1 Urines Urinalysis LIGHT H Urine Color (YEL,AMB,STR) YEL Urine Clarity (CLEAR) CLEAR Urine pH (5.0 - 8.0) 7.5 Ur Specific [place] (1.001 - 1.035) 1.010 Urine Protein (NEG,<30 MG/DL) NEG Urine Ketones (NEG) NEG Urine Nitrite (NEG) NEG Urine Bilirubin (NEG) NEG Urine Urobilinogen (0.1 - 1.0 EU/dl) 2.0 H Ur Leukocyte Esterase (NEG) TRACE H Ur Microscopic SEDIMENT EXAMINED Urine RBC (0 - 5 /HPF) RARE Urine WBC (0 - 2 /HPF) 3-5 H Ur Epithelial Cells (NONE,FEW) MOD H Urine Mucus (FEW,NONE) FEW Urine Hemoglobin (NEG) TRACE-INTACT Urine Glucose (N MG/DL) NEG Microbiology Date/Time Procedure - Status Source Growth 05/28 1253 Clostridium difficile Toxin A & B - RECD STOOL 05/28 1045 Stool Culture - ORD STOOL 05/27 2210 Urine Culture - RES URINE ROUT 05/27 1821 Blood Culture - RES BLOOD 05/27 1805 Blood Culture - RES BLOOD 05/27 1613 Clostridium difficile Toxin A & B - CAN STOOL Cancelled: SPECIMEN NOT RECEIVED IN LABORATORY 05/27 1613 Stool Culture - CAN STOOL Cancelled: SPECIMEN NOT RECEIVED IN LABORATORY CT lumbar spine Multilevel degenerative changes of the spine with multilevel spondylosis, most prominent at L4-L5. Moderate spinal canal narrowing is seen at this level. This is similar to the prior MRI, although MR is more sensitive for subtle disease. No evidence of acute fracture CT abdomen did not show any normalities. Assessment and problem list * Acute lower back pain * History of COPD * History of HIV and AIDS * Generalized weakness * Recurrent falls * Hypokalemia * History of diarrhea Plan * Continue gabapentin * Can give Tylenol or Motrin when necessary for pain * Can use Ultram for moderate pain * Avoid narcotics * Use local heat pad * Consider lidocaine patch since the pain is localized * Physical therapy
[2016-05-28 16:09] VITALS: BP 120/60
[2016-05-29 01:13] VITALS: BP 120/70
[2016-05-29 08:30] VITALS: BP 110/71
[2016-05-29 08:32] LABS: ABSOLUTE BASOPHIL COUNT 0.1 /CUMM (0.0-0.2); ABSOLUTE EOSINOPHIL COUNT 0.3 /CUMM (0.0-0.7); ABSOLUTE GRANULOCYTE CT 8.2 /CUMM (1.4-6.5); ABSOLUTE LYMPH COUNT 2.6 /CUMM (1.2-3.4); ABSOLUTE MONOCYTE COUNT 0.8 /CUMM (0.10-0.60); BASOPHIL % 0.5 % (0.0-2.0); EOSINOPHIL % 2.3 % (0-5); GRANULOCYTE % 68.7 % (42.2-75.2); MEAN CORPUSCULAR HGB 35.8 PG (27.0-31.0); MEAN CORPUSCULAR HGB CONC 33.7 G/DL (33.0-37.0); MEAN CORPUSCULAR VOLUME 106.1 FL (81.0-99.0); PLATELET COUNT 256 /CUMM (130-400); RBC DISTRIBUTION WIDTH 14.1 % (11.5-14.5); RED BLOOD CELL CT 3.49 /CUMM (4.20-5.40); WHITE BLOOD CELL COUNT 11.9 /CUMM (4.8-10.8)
--- NOTE | 2016-05-29 08:53 | PN- Housestaff ---
Subjective Follow-up For: hypokalemia Subjective: Seen and examined patient, complains of back pain, denies any chest pain fever or chills Review of Systems Constitutional: Denies: chills, diaphoresis, fever, malaise, weakness, unexplained weight loss. Cardiovascular: Denies: chest pain, edema, orthopena, palpitations, peripheral edema, syncope. Respiratory: Denies: cough, hemoptysis, orthopnea, short of breath, sputum production, stridor, wheezing. Objective Last 24 Hrs of Vital Signs/I&O Vital Signs Date Time Temp Pulse Resp B/P Pulse O2 O2 Flow FiO2 Ox Delivery Rate 05/29 1240 97 Room Air Room Air 05/29 1112 84 100/62 05/29 0830 99.2 67 20 110/71 99 Room Air 05/29 0800 94 Room Air Room Air 05/29 0113 99.1 71 20 120/70 98 05/28 2007 95 Room Air 05/28 1609 98.7 77 20 120/60 99 Room Air Intake & Output 05/29 1600 05/29 0800 05/29 0000 Intake Total 200 1000 Output Total 101 400 300 Balance -101 -200 700 Intake, IV 800 Intake, Oral 200 200 Output, Stool 1 Output, Urine 100 400 300 Physical Exam General Appearance: Alert, Oriented X3, No Acute Distress Cardiovascular: Regular Rate, Normal S1, Normal S2 Lungs: Clear to Auscultation, Normal Air Movement Abdomen: Normal Bowel Sounds, Soft, No Tenderness Assessment/Plan Assessment: Patient is a 65 y/o F with PMHx of HIV on Genvoya (undetectable viral load in December 2014), AML in remission s/p chemotherapy (2007), HTN, COPD, chronic back pain and migraines, recently hospitalized for COPD exacerbation and diarrhea (-05/19/16) and treated with azithromycin and steroids, who presents with generalized weakness and recurrent falls x 1 week. Plan Recurrent falls Working with PT most likely will require SCR Hypokalemia Resolved COPD Continue TRC/nebs HIV Continue Genvoya DVT prophylaxis with subcutaneous heparin Patient is DNR/DNI Problem List: 1. AIDS 2. COPD (chronic obstructive pulmonary disease) with emphysema Pain Ratin Pain Location: Not applicable Pain Goal: Pain 4 or less Pain Plan: Current regimen Tomorrow's Labs & Rationales: None Required
--- NOTE | 2016-05-29 13:57 | PN- Att Addend ---
Attending Addendum Attending Brief Note Patient seen and examined. Plan of care discussed with the medical team and the patient. Available lab work and radiology test reports were reviewed. Patient awake alert oriented and denies any chest pain fever or chills. She continues to have coughing with scant amount of sputum production. She reports slightly reduced back pain 4 out of 10. Vital Signs Date Time Temp Pulse Resp B/P Pulse O2 O2 Flow FiO2 Ox Delivery Rate 05/29 1240 97 Room Air Room Air 05/29 1112 84 100/62 05/29 0830 99.2 67 20 110/71 99 Room Air 05/29 0800 94 Room Air Room Air 05/29 0113 99.1 71 20 120/70 98 05/28 2007 95 Room Air 05/28 1609 98.7 77 20 120/60 99 Room Air Intake & Output 05/29 1600 05/29 0800 05/29 0000 Intake Total 200 1000 Output Total 101 400 300 Balance -101 -200 700 Intake, IV 800 Intake, Oral 200 200 Output, Stool 1 Output, Urine 100 400 300 Exam: General: Patient awake alert oriented without any distress CVS: S1 plus S2 without any murmur or gallops Chest: Few scattered crepitation without any wheeze. There is no respiratory distress. 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 DIRECTOR: Awake alert oriented without any focal neuro deficit and follows command appropriately Extremities: No edema; no clubbing or cyanosis noted Laboratory Tests 05/29 0655 Hematology CBC w Diff NO MAN DIFF REQ WBC (4.8 - 10.8 /CUMM) 11.9 H RBC (4.20 - 5.40 /CUMM) 3.49 L Hgb (12.0 - 16.0 G/DL) 12.5 Hct (37 - 47 %) 37.0 MCV (81.0 - 99.0 FL) 106.1 H MCH (27.0 - 31.0 PG) 35.8 H RDW (11.5 - 14.5 %) 14.1 Plt Count (130 - 400 /CUMM) 256 MPV (7.4 - 10.4 FL) 8.0 Gran % (42.2 - 75.2 %) 68.7 Lymphocytes % (20.5 - 51.1 %) 21.4 Monocytes % (1.7 - 9.3 %) 7.1 Eosinophils % (0 - 5 %) 2.3 Basophils % (0.0 - 2.0 %) 0.5 Absolute Granulocytes (1.4 - 6.5 /CUMM) 8.2 H Absolute Lymphocytes (1.2 - 3.4 /CUMM) 2.6 Absolute Monocytes (0.10 - 0.60 /CUMM) 0.8 H Absolute Eosinophils (0.0 - 0.7 /CUMM) 0.3 Absolute Basophils (0.0 - 0.2 /CUMM) 0.1 PUBS MCHC (33.0 - 37.0 G/DL) 33.7 Assessment and problem list * Acute lower back pain * History of COPD * History of HIV and AIDS * Generalized weakness * Recurrent falls * Hypokalemia * History of diarrhea Plan * Continue gabapentin * Can give Tylenol or Motrin when necessary for pain * Limit use of Flexeril only for 3 days * Continue lidocaine patch * Can use Ultram for moderate pain * Continue Physical therapy; patient likely will need short-term rehabilitation given that she was not able to ambulate
[2016-05-29 15:53] VITALS: BP 110/60
[2016-05-30 00:06] VITALS: BP 112/68
--- NOTE | 2016-05-30 05:20 | NUR ---
PT'S IV IN REJ NO LONGER WORKING. CALL PLACED TO DR. AMAYA PATIENT IS A DIFFICULT STICK. PT IS PROBABLY DC TODAY. POTASSIUM HAS NORMALIZED, TAKING IN ADEQUATE PO, NOT RECEIVEING ANY IV MEDS. PER DR. DCEKER TO LEAVE WITHOUT IV ACCESS AT THIS TIME.
[2016-05-30 08:38] VITALS: BP 110/60
[2016-05-30 10:04] VITALS: BP 110/60
--- NOTE | 2016-05-30 11:19 | PN- Housestaff ---
ADRIAN MALDONADO 05/30/16 1119: Subjective Follow-up For: hypokalemia Subjective: Seen and examined patient, offers no complaints states that she is walking with minimal assistance. Review of Systems Constitutional: Denies: chills, diaphoresis, fever, malaise, weakness, unexplained weight loss. Cardiovascular: Denies: chest pain, edema, orthopena, palpitations, peripheral edema, syncope. Respiratory: Denies: cough, hemoptysis, orthopnea, short of breath, sputum production, stridor, wheezing. Objective Last 24 Hrs of Vital Signs/I&O Vital Signs Date Time Temp Pulse Resp B/P Pulse O2 O2 Flow FiO2 Ox Delivery Rate 05/30 1004 84 110/60 05/30 0949 98 Room Air Room Air 05/30 0838 97.4 84 20 110/60 98 Room Air 05/30 0006 98.2 78 19 112/68 97 Room Air 05/29 1913 98 Room Air 05/29 1553 98.5 76 20 110/60 99 Room Air Intake & Output 05/30 1600 05/30 0800 05/30 0000 Intake Total 500 800 600 Output Total 3 600 900 Balance 497 200 -300 Intake, IV 0 600 400 Intake, Oral 500 200 200 Number 1 Bowel Movements Output, Urine 3 600 900 Physical Exam General Appearance: Alert, Cooperative, No Acute Distress Cardiovascular: Regular Rate, Normal S1, Normal S2 Lungs: Clear to Auscultation, Normal Air Movement Current Medications: Current Medications Sig/Solitario Start time Last Medication Dose Route Stop Time Status Admin Acetaminophen 650 MG Q6P PRN 05/28 0630 DCD PO Albuterol Sulfate 3 ML BID 05/28 1000 DCD 05/30 INH 0946 Albuterol Sulfate 2 PUF Q6-PRN PRN 05/28 0315 DCD INH Celecoxib 100 MG BID 05/28 1000 DCD 05/30 PO 1102 Citalopram 20 MG DAILY 05/28 1000 DCD 05/30 Hydrobromide PO 1004 Cyclobenzaprine HCl 10 MG QPM 05/28 2200 DCD 05/29 PO 05/30 1800 2135 Furosemide 20 MG DAILY 05/28 1000 DCD 05/30 PO 1004 Gabapentin 300 MG Q8 05/28 0934 DCD 05/30 PO 0640 Heparin Sodium 5,000 UNIT Q8 05/28 0600 DCD 05/30 (Porcine) SC 0640 Lidocaine 1 PAT DAILY 05/28 1915 DCD 05/30 EXT 1005 Loperamide HCl 2 MG DAILY 05/28 1000 DCD 05/30 PO 06/02 0959 1004 Nicotine 14 MG DAILY 05/28 1000 DCD TOP Omeprazole 40 MG DAILY AC 05/28 0933 DCD 05/30 PO 0640 Omeprazole 20 MG DAILY AC 05/28 0700 DCD 05/28 PO 0624 Oxycodone HCl 10 MG .STK-MED ONE 05/29 2129 DC PO 05/29 2130 Oxycodone HCl 10 MG TID 05/28 0630 DCD 05/30 PO 1004 Patient Medication 1 ED .STK-MED ONE 05/30 1353 DC Teaching ED 05/30 1354 Potassium Chloride 10 MEQ DAILY 05/28 1000 DCD 05/30 PO 1004 Potassium Chloride 20 MEQ Q10H 05/28 0215 DCD 05/29 Sodium Chloride 1,000 ML IV 1454 Propranolol HCl 20 MG QAM 05/28 1000 DCD 05/30 PO 1004 Valacyclovir HCl 1,000 MG DAILY 05/28 1000 DCD 05/30 PO 1004 Assessment/Plan Assessment: Patient is a 65 y/o F with PMHx of HIV on Genvoya (undetectable viral load in December 2014), AML in remission s/p chemotherapy (2007), HTN, COPD, chronic back pain and migraines, recently hospitalized for COPD exacerbation and diarrhea (-05/19/16) and treated with azithromycin and steroids, who presents with generalized weakness and recurrent falls x 1 week. Plan Recurrent falls PT cleared for home with home services Chronic pain Multilevel degenerative changes of the spine with multilevel spondylosis, most prominent at L4-L5. Moderate spinal canal narrowing is seen at this level. 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 Back pain, chronic 3. Disc herniation Pain Ratin Pain Location: not Applicable Pain Goal: Pain 4 or less Pain Plan: Current regimen Tomorrow's Labs & Rationales: None required YNADEL MARKS MD 05/30/16 1210: Attending MD Review Statement Attending Statement Attending MD Statement: examined this patient, discuss w/resident/PA/NECKTIE MAKER, agreed w/resident/PA/NECKTIE MAKER, reviewed EMR data (avail) Attending Assessment/Plan: Patient is back to baseline today. Diarrhea has resolved, patient is eating well without discomfort. Stable for discharge home, resume all home medications , start potassium supplement, follow up with PCP.
--- NOTE | 2016-05-30 11:28 | Patient Discharge Instructions ---
Discharge Instructions General Discharge Information You were seen/treated for: Low potassium Special Instructions: These follow-up with your primary care physician within one week of discharge Acute Coronary Syndrome Inclusion Criteria At DC or during hospital stay patient has or had the following: ACS DIAGNOSIS No Discharge Core Measures Meds if any: Prescribed or Continued at Discharge Meds if any: NOT Prescribed or Continued at Discharge Congestive Heart Failure Inclusion Criteria At DC or during hospital stay patient has or had the following: CHF DIAGNOSIS No Discharge Core Measures Meds if any: Prescribed or Continued at Discharge Meds if any: NOT Prescribed or Continued at Discharge Cerebrovascular accident Inclusion Criteria At DC or during hospital stay patient has or had the following: CVA/TIA Diagnosis No Discharge Core Measures Meds if any: Prescribed or Continued at Discharge Meds if any: NOT Prescribed or Continued at Discharge Venous thromboembolism Inclusion Criteria VTE Diagnosis No VTE Type NONE VTE Confirmed by (Test) NONE Discharge Core Measures - Per Current guidelines, there needs to be overlap - treatment for the first 5 days of Warfarin therapy. - If discharged on Warfarin prior to 5 days of - overlap therapy, the patient will need to be - assessed for post discharge needs including - *Post discharge parental anticoagulation - *Warfarin and/or parental anticoagulation education - *Follow up date to check INR post discharge At least 5 days overlap therapy as Inpatient No Meds if any: Prescribed or Continued at Discharge Note: Overlap Therapy is Warfarin and Anticoagulant Meds if any: NOT Prescribed or Continued at Discharge
--- NOTE | 2016-05-31 15:21 | Discharge Summary ---
See Addendum Visit Information Visit Dates Admission Date: 05/27/2016 Discharge Date: 05/31/16 Hospital Course Course Attending Physician: YANDEL MARKS MD [facility] [place] [facility]: 65-year-old woman, current smoker with a past medical history of HIV on Genvoya, COPD not on home oxygen, chronic pain on pain medications, depression, anxiety, AML s/p chemo (2007) in remission, HTN, COPD, chronic back pain on opiates, migraine, discharged on 05/19/16 after being treated for COPD exacerbation (on azithro and prednisone taper) and diarrhea with negative work up, readmitted for acute on chronic low back pain, weakness with recurrent mechanical falls over past 1 week. Reported pain radiating to lower extremity. Vitals were stable. Labs: WBC 17.3, macrocytosis, K 2.9, bicarb 34, AST 40, UA clear, CXR: emphysema, CT head neg, Left hip Xray neg, CT lumbar spine degenerative changes, CT abd/pelvis neg. EKG: NSR. 1. Weakness, deconditioning, acute on chronic low back pain Improved clinically and Physiotherapy cleared her for home with home services. 2. Hypokalemia in the setting of chronic diarrhea and Genvoya (ART). Lasix was held and potassium repleted. Her daily potassium supplement was continued. 3. HIV. Genvoy was continued 4 Continued home meds valcyclovir, flexeril, protonix, gabapentin, celecoxib, citalopram and propranolol. DVT ppx Hep SC Complications: none Allergies: Coded Allergies: No Known Allergies (05/27/16) Pertinent Lab Results: SERVICE DATE: 05/27/16 EXAM TYPE: RAD - XRY-CHEST XRAY, PA AND LATERAL FINDINGS: No airspace opacities or pleural effusions are seen. Emphysematous changes are noted with attenuation of the upper lung zone markings and flattening of the hemidiaphragms on the lateral projection. The cardiomediastinal silhouette is normal. No acute osseous abnormality is seen. IMPRESSION: Emphysema. Clear lungs. SERVICE DATE: 05/27/16 EXAM TYPE: CAT - CT HEAD WO IV CONTRAST FINDINGS: There is no evidence of acute infarct, mass, or hemorrhage. The patel-white matter junction and cortical ribbon are well defined throughout the cerebrum. No intra-axial or extra-axial fluid collections are seen. There is some enlargement of the ventricles and sulci with an appearance consistent with moderate cerebral atrophy, likely consistent with the patient?s age. This is not changed. There is also some periventricular hypodensity, left more than right, with an appearance consistent with microvascular ischemic disease, moderate in degree. This has slightly increased since the prior exam. There is no midline shift. The brain stem and cerebellum are grossly unremarkable. No fractures or concerning osseous lesions are seen. The orbits and globes are normal. The sinuses and mastoid air cells are clear. The scalp and superficial soft tissues are unremarkable. There is overall no significant change from the prior exam. IMPRESSION: No acute findings. Moderate brain atrophy and microvascular ischemic disease. SERVICE DATE: 05/27/16 EXAM TYPE: RAD - XRY-HIP 2-3 VIEWS, LEFT IMPRESSION: Unremarkable left hip radiographs without evidence of acute injury. SERVICE DATE: 05/27/16 EXAM TYPE: CAT - CT LUMB SPINE WO IV CONTRAST EXAMINATION: CT LUMBAR SPINE WITHOUT CONTRAST FINDINGS: There is no acute fracture or subluxation. Slight levoscoliosis of the lumbar spine. There is disc space narrowing and irregularity at L4-L5, with similar appearance to the prior study from 2014. There is endplate sclerosis and erosive change. This appears chronic. Increased sclerosis is seen at the L5-S1 level, with vacuum disc phenomenon noted. Vascular calcifications are seen. No hydronephrosis or nephrolithiasis. No retroperitoneal lymphadenopathy seen. SPINAL LEVELS: T12-L1: Unremarkable. L1-L2: Unremarkable. L2-L3: There is a small disc bulge. Mild hypertrophy of the ligamentum flavum. No significant spinal canal narrowing. Mild bilateral neuroforaminal narrowing. L3-L4: Small disc bulge. Mild facet arthropathy with hypertrophy of the ligamentum flavum. Mild left neuroforaminal narrowing. Mild central canal narrowing. L4-L5: Moderate facet arthropathy with hypertrophy of the ligamentum flavum. Broad disc bulge. Bilateral moderate neuroforaminal narrowing. Moderate spinal canal narrowing. Similar to prior MRI. L5-S1: Small disc bulge. Bilateral facet arthropathy. IMPRESSION: Multilevel degenerative changes of the spine with multilevel spondylosis, most prominent at L4-L5. Moderate spinal canal narrowing is seen at this level. This is similar to the prior MRI, although MR is more sensitive for subtle disease. No evidence of acute fracture. SERVICE DATE: 05/27/16 EXAM TYPE: CAT - CT ABD & PELVIS W/O IV CONTRAS FINDINGS: LUNG BASES: The visualized lung bases are unremarkable. LIVER, GALLBLADDER, AND BILIARY TREE: The liver is normal in size, shape, and attenuation. No focal hepatic lesion or biliary ductal dilatation is present. Gallbladder are unremarkable. Chronic dilatation of the extrahepatic CBD to a diameter of 1 cm unchanged since CAT scan of 06/10/2013. No calcified stone within the duct. PANCREAS: Unremarkable. SPLEEN: Unremarkable. ADRENAL GLANDS: Unremarkable. KIDNEYS AND URETERS: The kidneys are normal in size, shape, and attenuation. No hydronephrosis, hydroureter, or calculi seen. No perinephric stranding. BLADDER: Unremarkable. GASTROINTESTINAL TRACT: Diffuse diverticulosis of the colon. No diverticulitis. No acute change of the bowel. No bowel obstruction. No bowel wall thickening or edema. Moderate volume of stool throughout the colon. The appendix is normal. The small bowel loops are unremarkable. MESENTERY: No inflammation. No free air or free fluid. ABDOMINAL WALL: No significant hernia is appreciated. LYMPH NODES: Normal. VASCULAR: Scattered vascular wall calcifications of the aorta without aneurysm. No vascular calcification at the origin of the celiac axis or SMA. PELVIC VISCERA: Uterus is anteverted. No adnexal abnormality. OSSEOUS STRUCTURES: Degenerative irregularity at the endplates at L4-L5 and L5-S1 with subchondral sclerosis of the bone IMPRESSION: No acute abnormality CT scan abdomen pelvis. Diverticulosis of the colon without diverticulitis. Disposition Summary Disposition Principal Diagnosis: hypokalemia Additional Diagnosis: chronic diarrhea HIV Discharge Disposition: home or self care Discharge Instructions General Discharge Information Code Status: Do Not Resucitate/Intubat Patient's Diet: regular diet Patient's Activity: as tolerated Follow-Up Instructions/Appts: follow-up with your primary care physician within one week of discharge Medications at Discharge Discharge Medications: Stop taking the following medications: Prednisone (Prednisone) 10 MG TABLET ORAL See Instructions Qty = 10 Continue taking these medications: Propranolol HCl (Propranolol HCl) 20 MG TABLET 1 Tablet ORAL Every Morning Comments: Last Taken: 05/30/16 Time: 10AM Citalopram Hydrobromide (Citalopram HBr) 20 MG TABLET 1 Tablet ORAL DAILY Qty = 90 Comments: GIVEN 05/30/15 AT 0900 Ondansetron (Zofran 4 MG Tablet) 4 MG TAB 1 Tablet ORAL EVERY 8 HOURS NEEDED as needed for NAUSEA/VOMITING Comments: NOT GIVEN Multivitamin (Multiple Vitamins) 1 EACH TABLET 1 Tablet ORAL DAILY Comments: GIVEN 05/30/15 AT 0900 CALCIUM CARBONATE/VITAMIN D3 (Os-Nathaniel 500+D3 Caplet) 500 MG-200 TABLET 1 Tablet ORAL DAILY Comments: GIVEN 05/30/15 AT 0900 Albuterol Sulfate (Albuterol Sulfate Hfa) 90 MCG HFA.AER.AD 2 PUFF Inhale through mouth as needed for SHORTNESS OF BREATH Qty = 1 Instructions: 90 MCG PER PUFF Oxycodone HCl (Oxycodone HCl) 15 MG TABLET 1 Tablet ORAL THREE TIMES DAILY Comments: Last Taken: 05/30/16 Time: 10AM Loperamide HCl (Imodium A-D) 2 MG TABLET 1 Tablet ORAL as needed for DIARRHEA Instructions: NOT MORE THAN 8/DAY Comments: Last Taken: 05/30/16 Time: 10AM Elviteg/Samia/Emtric/Tenofo Ala (Genvoya Tablet) 150 MG-150 MG-200 MG-10 MG TABLET 1 Tablet ORAL DAILY Qty = 30 Comments: Last Taken: 05/30/16 Time: 10AM Eszopiclone (Lunesta) 3 MG TABLET 1 Tablet ORAL Every night Qty = 30 Comments: NOT GIVEN IN HOSPITAL Gabapentin (Gabapentin) 300 MG CAPSULE 1 Capsule ORAL THREE TIMES DAILY Qty = 90 Comments: Last Taken: 05/30/16 Time: 640AM Celecoxib (Celebrex) 100 MG CAPSULE 1 Capsule ORAL TWICE DAILY Qty = 56 Comments: Last Taken:05/19/16 Time:4:41A.M Furosemide (Furosemide) 20 MG TABLET 1 Tablet ORAL As Directed Qty = 90 Comments: Last Taken: 05/30/16 Time: 10AM Furosemide (Lasix) 40 MG TABLET 1 Tablet ORAL EVERY MONDAY Days = 30 Comments: NOT GIVEN IN HOSPITAL Potassium Chloride (Potassium Chloride) 10 MEQ TABLET.ER 1 Tablet ORAL DAILY Qty = 90 Comments: Last Taken: 05/30/16 Time: 10AM Alendronate Sodium (Alendronate Sodium) 70 MG TABLET 1 Tablet ORAL EVERY MONDAY Qty = 12 Instructions: in the morning, at least 30 minutes before the first food, beverage, or medication of the day Comments: NOT GIVEN IN HOSPITAL Pantoprazole Sodium (Pantoprazole Sodium) 40 MG TABLET.DR 1 Tablet ORAL DAILY Qty = 90 Comments: NOT GIVEN IN HOSPITAL Cyclobenzaprine HCl (Cyclobenzaprine HCl) 10 MG TABLET 1 Tablet ORAL Every night Comments: Last Taken: 05/29/16 Time: 2130PM Valacyclovir HCl (Valtrex) 1,000 MG TABLET 1 Tablet ORAL DAILY Comments: Last Taken: 05/30/16 Time: 10AM Copies To: HAYLIE WORKMAN APRN Attending MD Review Statement Documenting Attending: SELINA CARBAJAL,YANDEL
== END 2016-05-30 14:21 | disposition home health service (06) | DRG 894 ==
LOC: ERH 14:26 → 2NB 05-28 00:53 → ERHI 05-28 00:53 → 2NB 05-28 00:53
PROVIDERS: Internal Medicine; Physician Assistant; ADMIT Student in an Organized Health Care Education/Training Program
DX: E87.6 Hypokalemia (principal); E86.0 Dehydration; B20 Human immunodeficiency virus [HIV] disease; C92.Z1 Other myeloid leukemia, in remission; I10 Essential (primary) hypertension; J44.9 Chronic obstructive pulmonary disease, unspecified; K21.9 Gastro-esophageal reflux disease without esophagitis; F17.210 Nicotine dependence, cigarettes, uncomplicated; M47.896 Other spondylosis, lumbar region; F32.9 Major depressive disorder, single episode, unspecified; F17.200 Nicotine dependence, unspecified, uncomplicated
CPT/HCPCS: 2NBP; 36415; 73502-LT; 74176; 81001; 82436; 87040; 87045; 87086; 93005; 93010; 96365; 96376; 97001-GP; 97116-GO; 97161-GP; 97530-GO; 99291; J1644; J3490

== ENCOUNTER 2016-08-09 13:52 | Emergency (ER) | payer OTHER ==
[~2016-08-09] VITALS: Ht 149.9 cm; Wt 49.9 kg
--- NOTE | 2016-08-09 14:56 | ED NECK/BACK PAIN COMPLAINT ---
History of Present Illness General Chief Complaint: Low Back Pain/Injury Stated Complaint: CHRONIC BACK PAIN Source: patient Exam Limitations: no limitations Vital Signs & Intake/Output Vital Signs & Intake/Output Vital Signs Date Time Temp Pulse Resp B/P Pulse O2 O2 Flow FiO2 Ox Delivery Rate 08/09 1600 97.0 71 18 132/75 97 Room Air 08/09 1359 97.4 73 18 112/68 6 Room Air ED Intake and Output 08/10 0000 08/09 1200 Intake Total Output Total Balance Patient 110 lb Weight Allergies Coded Allergies: No Known Allergies (05/27/16) Reconcile Medications Albuterol Sulfate (Proair Hfa) 90 MCG HFA.AER.AD 2 PUF INH PRN SOB (Reported) Alendronate Sodium 70 MG TABLET 1 TAB PO QSUN OSTEOPOROSIS (Reported) in the morning, at least 30 minutes before the first food, beverage, or medication of the day Calcium Carbonate/Vitamin D3 (Os-Nathaniel 500+D3 Caplet) (Unknown Strength) TABLET (Unknown Dose) PO DAILY SUPPLEMENT (Reported) Celecoxib (Celebrex) 100 MG CAPSULE 1 CAP PO BID ARTHRITIS - LOWER BACK ( Reported) Citalopram Hydrobromide (Citalopram HBr) 20 MG TABLET 1 TAB PO DAILY MENTAL HEALTH (Reported) Elviteg/Samia/Emtric/Tenofo Ala (Genvoya Tablet) 150 MG-150 MG-200 MG-10 MG TABLET 1 TAB PO DAILY ANTIVIRAL (Reported) Eszopiclone (Lunesta) 3 MG TABLET 1 TAB PO QPM SLEEP (Reported) Furosemide (Lasix) 40 MG TABLET 1 TAB PO Monday DIURETIC (Reported ) Furosemide (Lasix) 20 MG TABLET 1 TAB PO AD DIURETIC (Reported) Gabapentin 300 MG CAPSULE 1 CAP PO TID NERVE PAIN (Reported) Hydrocortisone 2.5 % OINT...G. 1 SORAYA TOP BID RIGHT HAND LEFT ELBOW (Reported) apply to affected area(s) Loperamide HCl (Imodium A-D) 2 MG TABLET 1 TAB PO PRN DIARRHEA (Reported) NOT MORE THAN 8/DAY Megestrol Acetate 40 MG TABLET 1 TAB PO EOD APPETITE STIMULANT (Reported) Multivitamin (Multiple Vitamins) 1 EACH TABLET 1 TAB PO DAILY SUPPLEMENT ( Reported) Naloxone HCl (Narcan) 4 MG/ACTUATION SPRAY 4 MG FABY AD PRN OPIOID INDUCED RESP. DEPRESSIO (Reported) Oxycodone HCl 15 MG TABLET 1 TAB PO TID CHRONIC PAIN (Reported) Pantoprazole Sodium 40 MG TABLET.DR 1 TAB PO DAILY GI (Reported) Potassium Chloride 10 MEQ TABLET.ER 1 TAB PO DAILY SUPPLEMENT (Reported) Propranolol HCl 20 MG TABLET 1 TAB PO QAM MIGRAINES (Reported) Valacyclovir HCl (Valtrex) 1,000 MG TABLET 1 TAB PO DAILY HERPES SIMPLEX ( Reported) Triage Note: 65 Y/O FEMALE C/O LOWER BACK, ONSET 3 DAYS AGO. DENIES KNOWN INJURY OR TRAUMA. STATES HX BULGING DISCS. STATES PAIN RADIATES DOWN LEGS. PT TOOK OXYCODONE AND GABAPENTIN TODAY FOR SAME; NO RELIEF NOTED PER PT. Triage Nurses Notes Reviewed? yes HPI: This patient is a 65-year-old female with a past medical history including COPD and HIV who presented to the emergency department today brought in by her daughter for evaluation of back pain 3 days. The patient reported that she does have a known history of bulging disks. She reported that she has had constant pain in her back worse with certain movements over the last 3 days. The pain is a 10 out of 10 and occasionally radiates down both legs and causes numbness in her legs. She denied any weakness. No bowel or bladder incontinence. No saddle paresthesia. The patient denied any falls or trauma. She denied any neck pain, headaches, visual changes, chest pain, difficulty breathing, or abdominal pain. She took OxyContin and gabapentin today without any relief of her symptoms (KAJAL PASTOR PA-C) Past History Travel History Traveled to [place] past 21 day No Medical History Any Pertinent Medical History? see below for history Neurological: migraine EENT: allergies Cardiovascular: NONE Respiratory: asthma, bronchitis, COPD, emphysema, pneumonia Gastrointestinal: GERD Hepatic: NONE Renal: NONE Musculoskeletal: disk herniation, osteoarthritis Psychiatric: anxiety, depression Endocrine: NONE Blood Disorders: anemia Cancer(s): AML [employer]/Reproductive: HIV (undetectable load (12/2014)), GENITAL WARTS History of MRSA: No History of VRE: Yes History of CDIFF: No Influenza Vaccine: 02/20/16 Surgical History Surgical History: non-contributory Psychosocial History Who do you live with Daughter Services at Home Nursing What is your primary language Kiswahili Tobacco Use: Current Daily Use Daily Tobacco Use Amount/Type: => 5 Cigarettes daily Family History Family History, If Any: MOTHER (Breast cancer in her 60s, DM). FH: breast cancer FH: diabetes mellitus Hx Contributory? No (KAJAL PASTOR PA-C) Review of Systems Review of Systems Constitutional: Reports: no symptoms. Eyes: Reports: no symptoms. Ears, Nose, Throat, Mouth: Reports: no symptoms. Respiratory: Reports: no symptoms. Cardiovascular: Reports: no symptoms. Gastrointestinal/Abdominal: Reports: no symptoms. Musculoskeletal: Reports: see HPI. Skin: Reports: no symptoms. Neurological/Psychological: Reports: no symptoms. All Other Systems: Reviewed and Negative (KAJAL PASTOR PA-C) Physical Exam Physical Exam Neck: normal inspection, supple, full range of motion, normal alignment, no midline tenderness Comments: Well-developed well-nourished person in no acute distress HEENT: Normal EENT exam, head normocephalic/atraumatic, moist mucous membranes PERRLA bilaterally Back: Antalgic gait. No bony or muscular deformities. No step-offs of the spine. Spinous process tenderness at all levels of the thoracic and lumbar spine Cardiovascular: Regular rate and rhythm with no murmurs, rubs, or gallops Respiratory: Chest nontender. No respiratory distress. Breath sounds clear to auscultation bilaterally Abdomen: Soft, nontender and nondistended with no rebound or guarding Extremity: Normal and equal pulses. Neuro: Alert oriented x3, motor sensory normal, cranial nerves II through XII grossly intact. 5 out of 5 muscular strength in all extremities Skin: No appreciable rash on exposed skin, skin is warm and dry. Psych: Mood and affect is normal (KAJAL PASTOR PA-C) Progress Differential Diagnosis: AAA, aortic dissection, cauda equina syn, herniated disc , myofascial strain, pyelo/UTI, sciatica, spinal cord inj, thoracic outlet syn, T/L spine injury, ureterolithiasis Plan of Care: Orders Procedure Date/time Status CT THOR SPINE WO IV CONTRAST 08/[address] LUMB SPINE WO IV CONTRAST 08/09 1451 Active Current Medications Sig/Solitario Start time Last Medication Dose Stop Time Status Admin Ketorolac 30 MG ONCE ONE 08/09 1500 UNVr Tromethamine 08/09 1501 (Toradol) Methylprednisolone 125 MG ONCE ONE 08/09 1500 UNVr (Solu Medrol) 08/09 1501 Diagnostic Imaging: Viewed by Me: CT Scan. Discussed w/RAD: CT Scan. Radiology Impression: PATIENT: CAYETANO MIKE PRESENT AGE: 65 PATIENT ACCOUNT NO: [id number] : 49 LOCATION: [facility] ORDERING PHYSICIAN: KAJAL PASTOR PA-C SERVICE DATE: 08/09/16-5915 EXAM TYPE: CAT - CT LUMB SPINE WO IV CONTRAST; CT THOR SPINE WO IV CONTRAST EXAMINATION: CT THORACIC SPINE WITHOUT CONTRAST CT LUMBAR SPINE WITHOUT CONTRAST CLINICAL INFORMATION: Back pain. Assess for bulging disc. COMPARISON: CT scan of the lumbar spine 05/27/2016. MRI scan of the lumbar spine 03/06/2015. TECHNIQUE: Noncontrast axial CT scans of the thoracic and lumbar spine were obtained. Coronal and sagittal reformatted images were generated at the technologist workstation. DLP: 463.6 mGy-cm FINDINGS: CT THORACIC SPINE: Vertebral Bodies And Paraspinal Structures: There is anatomic alignment of the vertebral bodies. There is mild narrowing of intervertebral disc height in the mid thoracic region. There are mild vacuum disc changes anteriorly at T9-T10 and T10-T11. The vertebral bodies have normal contour and there are no compression fractures. Bone mineralization appears normal. There is a small tracheal diverticulum posteriorly on the right at the level of T2. The thyroid gland appears unremarkable. The central airways are widely patent. There are shotty lymph nodes in the mediastinum. There are no pleural effusions. There is a small hiatal hernia, more prominent compared to the prior study. There is atelectasis at the lung bases. There are bilateral emphysematous changes. These are most severe in the upper zones. Spinal Levels: The posterior disc contours appear normal throughout the thoracic region. There is no central stenosis. The neural foramina are patent. CT LUMBAR SPINE: Vertebral Bodies And Paraspinal Structures : The study redemonstrates the rightward subluxation of L4 on L5. There is a mild levoscoliosis. There is narrowing of intervertebral disc height at L4-L5 with marked degenerative endplate contour changes. The sclerosis toward the left is essentially unchanged. Degenerative endplate contour changes are also noted toward the right at L5-S1, similar compared to the prior study. Vacuum disc changes are seen at L2-L3 with narrowing of intervertebral disc height. There is narrowing of intervertebral disc height at L5-S1 with vacuum changes anteriorly. There are Schmorl's nodes at the adjacent endplates at L2-L3 posteriorly. There are no compression fractures and vertebral body heights are maintained. There are atheromatous calcifications of the aorta. The visualized pelvic structures are unremarkable. The sacroiliac joints are intact. SPINAL LEVELS: L1-L2: The disc configuration is normal. The central canal and neural foramina are widely patent. The facet joints are normal. L2-L3: There is mild bilateral facet arthropathy with ligamenta flava hypertrophy. There is a diffuse disc bulge extending into the inferior neural foramina bilaterally, more prominent on the left. There is no central stenosis. L3-L4: There is mild bilateral facet arthropathy and ligamenta flava hypertrophy. There is a broad-based posterior disc protrusion extending into the neural foramina bilaterally, with likely impingement on the exiting L3 nerve roots bilaterally. There is mild central stenosis. These findings appear slightly worse compared to the prior study. There is mild central stenosis. L4-L5: There is severe bilateral facet arthropathy and facet joint effusions. There is ligamenta flava hypertrophy. There is a posterior disc osteophyte complex extending into the left greater than right neural foramina and there is likely impingement on the exiting left L4 nerve root. There is mild central stenosis. L5-S1: There is mild bilateral facet arthropathy. There is a posterior disc protrusion extending into the right greater than left neural foramina, similar compared to the prior study, and there may be impingement on the exiting right L5 nerve root. There is no central stenosis. IMPRESSION: THORACIC SPINE: 1. There are mild degenerative changes in the mid and lower thoracic spine. 2. There are no acute fractures or subluxations. 3. There is no central stenosis or foraminal narrowing. LUMBAR SPINE: 1. There has been interval increase in the bilateral foraminal disc protrusion at L3-L4, with likely impingement on the exiting L3 nerve roots bilaterally. 2. There are severe degenerative endplate changes at L4-L5, similar compared to the prior study. There is a disc osteophyte complex extending into the left greater than right neural foramina with likely impingement on the exiting left L4 nerve root. There is mild central stenosis. 3. Milder degenerative changes are seen at L2-L3 and L5-S1. 4. There are no acute fractures or subluxations. DICTATED BY: LOPEZ KOWALSKI MD DATE/TIME DICTATED:08/09 TANGLED YARN SPOOL STRAIGHTENER:JESSI DATE/TIME TRANSCRIBED:08/09/161639 CONFIDENTIAL, DO NOT COPY WITHOUT APPROPRIATE AUTHORIZATION. <Electronically signed in Other Vendor System> SIGNED BY: LOPEZ KOWALSKI MD 08/09/16 1727 Comments: 08/09/2016 5:41:55 PM: Worsened, chronic degenerative changes of the lumbar spine seen on CT scan. Patient was ambulated without difficulty. No complaints of pain at this time. Stable for discharge home. (DAWIT CORBIN,KAJAL) Departure Departure Disposition: HOME OR SELF CARE Condition: Stable Clinical Impression Primary Impression: Back pain Qualifiers: Back pain location: low back pain Chronicity: chronic Back pain laterality: midline Sciatica presence: with sciatica Sciatica laterality: bilateral sciatica Qualified Codes: M54.41 - Lumbago with sciatica, right side; M54.42 - Lumbago with sciatica, left side; G89.29 - Other chronic pain Referrals: ÓSCAR CARBAJAL,HAYLIE PORTILLO APRN (PCP/Family) Additional Instructions: Please follow up with the neurosurgeon's information has been provided to you in this packet. Please rest and take your previously prescribed pain medication as directed. Follow-up with your primary care physician. Return for any worsening symptoms or concerns. Departure Forms: Customer Survey General Discharge Information (KAJAL APSTOR PA-C) PA/CLOTH MENDER Co-Sign Statement Statement: ED Attending supervision documentation- [X] I saw and evaluated the patient. I have also reviewed all the pertinent lab results and diagnostic results. I agree with the findings and the plan of care as documented in the PA's/CLOTH MENDER's documentation. [X] I have reviewed the ED Record and agree with the PA's/CLOTH MENDER's documentation. [] Additions or exceptions (if any) to the PAs/CLOTH MENDER's note and plan are summarized below: [] (DAVID CARBAJAL,MIKEY)
[2016-08-09] MEDS ORDERED: NARCAN4 MG NAS (15:46)
[2016-08-09 16:00] VITALS: BP 132/75
[2016-08-09] MEDS ORDERED: LASIX40 M1 PO (17:09)
[2016-08-09] MEDS ORDERED: LASIX20 M1 PO (17:10)
[2016-08-09] MEDS ORDERED: MEGESTROL ACETA40 MG PO (17:11)
[2016-08-09] MEDS ORDERED: HYDROCORTISO453.6 GM TOP (17:12)
--- NOTE | 2016-08-09 17:27 | CT SCAN REPORT ---
EXAMINATION: CT THORACIC SPINE WITHOUT CONTRAST CT LUMBAR SPINE WITHOUT CONTRAST CLINICAL INFORMATION: Back pain. Assess for bulging disc. COMPARISON: CT scan of the lumbar spine 05/27/2016. MRI scan of the lumbar spine 03/06/2015. TECHNIQUE: Noncontrast axial CT scans of the thoracic and lumbar spine were obtained. Coronal and sagittal reformatted images were generated at the technologist workstation. DLP: 463.6 mGy-cm FINDINGS: CT THORACIC SPINE: Vertebral Bodies And Paraspinal Structures: There is anatomic alignment of the vertebral bodies. There is mild narrowing of intervertebral disc height in the mid thoracic region. There are mild vacuum disc changes anteriorly at T9-T10 and T10-T11. The vertebral bodies have normal contour and there are no compression fractures. Bone mineralization appears normal. There is a small tracheal diverticulum posteriorly on the right at the level of T2. The thyroid gland appears unremarkable. The central airways are widely patent. There are shotty lymph nodes in the mediastinum. There are no pleural effusions. There is a small hiatal hernia, more prominent compared to the prior study. There is atelectasis at the lung bases. There are bilateral emphysematous changes. These are most severe in the upper zones. Spinal Levels: The posterior disc contours appear normal throughout the thoracic region. There is no central stenosis. The neural foramina are patent. CT LUMBAR SPINE: Vertebral Bodies And Paraspinal Structures: The study redemonstrates the rightward subluxation of L4 on L5. There is a mild levoscoliosis. There is narrowing of intervertebral disc height at L4-L5 with marked degenerative endplate contour changes. The sclerosis toward the left is essentially unchanged. Degenerative endplate contour changes are also noted toward the right at L5-S1, similar compared to the prior study. Vacuum disc changes are seen at L2-L3 with narrowing of intervertebral disc height. There is narrowing of intervertebral disc height at L5-S1 with vacuum changes anteriorly. There are Schmorl's nodes at the adjacent endplates at L2-L3 posteriorly. There are no compression fractures and vertebral body heights are maintained. There are atheromatous calcifications of the aorta. The visualized pelvic structures are unremarkable. The sacroiliac joints are intact. SPINAL LEVELS: L1-L2: The disc configuration is normal. The central canal and neural foramina are widely patent. The facet joints are normal. L2-L3: There is mild bilateral facet arthropathy with ligamenta flava hypertrophy. There is a diffuse disc bulge extending into the inferior neural foramina bilaterally, more prominent on the left. There is no central stenosis. L3-L4: There is mild bilateral facet arthropathy and ligamenta flava hypertrophy. There is a broad-based posterior disc protrusion extending into the neural foramina bilaterally, with likely impingement on the exiting L3 nerve roots bilaterally. There is mild central stenosis. These findings appear slightly worse compared to the prior study. There is mild central stenosis. L4-L5: There is severe bilateral facet arthropathy and facet joint effusions. There is ligamenta flava hypertrophy. There is a posterior disc osteophyte complex extending into the left greater than right neural foramina and there is likely impingement on the exiting left L4 nerve root. There is mild central stenosis. L5-S1: There is mild bilateral facet arthropathy. There is a posterior disc protrusion extending into the right greater than left neural foramina, similar compared to the prior study, and there may be impingement on the exiting right L5 nerve root. There is no central stenosis. IMPRESSION: THORACIC SPINE: 1. There are mild degenerative changes in the mid and lower thoracic spine. 2. There are no acute fractures or subluxations. 3. There is no central stenosis or foraminal narrowing. LUMBAR SPINE: 1. There has been interval increase in the bilateral foraminal disc protrusion at L3-L4, with likely impingement on the exiting L3 nerve roots bilaterally. 2. There are severe degenerative endplate changes at L4-L5, similar compared to the prior study. There is a disc osteophyte complex extending into the left greater than right neural foramina with likely impingement on the exiting left L4 nerve root. There is mild central stenosis. 3. Milder degenerative changes are seen at L2-L3 and L5-S1. 4. There are no acute fractures or subluxations.
== END 2016-08-09 17:57 ==
LOC: ERH 13:52
DX: M54.5 Low back pain (principal)
CPT/HCPCS: 96374; 96375; J1200; J1885; J2930

== ENCOUNTER 2016-09-02 14:03 | Emergency (ER) | payer OTHER ==
[~2016-09-02] VITALS: Ht 149.9 cm; Wt 56.7 kg
[~2016-09-02 14:03] MED LIST changes: +HYDROCORTISO453.6 GM TOP; +LASIX20 M1 PO; +MEGESTROL ACETA40 MG PO; +NARCAN4 MG NAS
--- NOTE | 2016-09-02 15:20 | ED GENERAL ADULT ---
History of Present Illness General Chief Complaint: General Adult Stated Complaint: BACK PAIN, SEEING THINGS, CONFUSION, X 5 DAYS Source: patient, family, old records Exam Limitations: confusion, poor historian Allergies Coded Allergies: acetaminophen (From PERCOCET) (ITCH 09/02/16) oxycodone (From PERCOCET) (ITCH 09/02/16) Reconcile Medications Albuterol Sulfate (Proair Hfa) 90 MCG HFA.AER.AD 2 PUF INH PRN SOB (Reported) Alendronate Sodium 70 MG TABLET 1 TAB PO QSUN OSTEOPOROSIS (Reported) in the morning, at least 30 minutes before the first food, beverage, or medication of the day Calcium Carbonate/Vitamin D3 (Os-Nathaniel 500+D3 Caplet) (Unknown Strength) TABLET (Unknown Dose) PO DAILY SUPPLEMENT (Reported) Celecoxib (Celebrex) 100 MG CAPSULE 1 CAP PO BID ARTHRITIS - LOWER BACK ( Reported) Ciprofloxacin HCl (Cipro) 500 MG TABLET 1 TAB PO BID uti Citalopram Hydrobromide (Citalopram HBr) 20 MG TABLET 1 TAB PO DAILY MENTAL HEALTH (Reported) Elviteg/Samia/Emtric/Tenofo Ala (Genvoya Tablet) 150 MG-150 MG-200 MG-10 MG TABLET 1 TAB PO DAILY ANTIVIRAL (Reported) Eszopiclone (Lunesta) 3 MG TABLET 1 TAB PO QPM SLEEP (Reported) Furosemide (Lasix) 40 MG TABLET 1 TAB PO AD DIURETIC (Reported) Furosemide (Lasix) 20 MG TABLET 1 TAB PO AD DIURETIC (Reported) Gabapentin 300 MG CAPSULE 1 CAP PO TID NERVE PAIN (Reported) Hydrocortisone 2.5 % OINT...G. 1 SORAYA TOP BID RIGHT HAND LEFT ELBOW (Reported) apply to affected area(s) Loperamide HCl (Imodium A-D) 2 MG TABLET 1 TAB PO PRN DIARRHEA (Reported) NOT MORE THAN 8/DAY Megestrol Acetate 40 MG TABLET 1 TAB PO EOD APPETITE STIMULANT (Reported) Multivitamin (Multiple Vitamins) 1 EACH TABLET 1 TAB PO DAILY SUPPLEMENT ( Reported) Naloxone HCl (Narcan) 4 MG/ACTUATION SPRAY 4 MG FABY AD PRN OPIOID INDUCED RESP. DEPRESSIO (Reported) Ondansetron HCl 4 MG TABLET 1 TAB PO Q8H PRN N/V (Reported) Oxycodone HCl 15 MG TABLET 1 TAB PO TID CHRONIC PAIN (Reported) Pantoprazole Sodium 40 MG TABLET.DR 1 TAB PO DAILY GI (Reported) Potassium Chloride 10 MEQ TABLET.ER 1 TAB PO AD SUPPLEMENT (Reported) Potassium Chloride 20 MEQ TAB.ER.PRT 1 TAB PO AD SUPPLEMENT (Reported) Propranolol HCl 20 MG TABLET 1 TAB PO QAM MIGRAINES (Reported) Valacyclovir HCl (Valtrex) 1,000 MG TABLET 1 TAB PO DAILY HERPES SIMPLEX ( Reported) Triage Note: PT HAS CHRONIC BACK PAIN HOWEVER TODAY SHE IS SEEING THINGS AND HAS BEEN CONFUSED FOR THE PAST 5 DAYS. DGT STATES THIS HAS HAPPEND TO HER IN THE PAST AND SOMETIMES HER POTASSIUM IS LOW. Triage Nurses Notes Reviewed? yes HPI: Patient is a 65-year-old female brought in by her daughter for evaluation of confusion, hallucinations, generalized weakness, severe back pain. Patient's daughter reports that the patient has been having problems with her memory for several months that they are undergoing testing for but over the past 2-4 days she has been increasingly confused where she has been seeing crickets going throughout the house, was in the kitchen and took everything out of the cabinets , and then will not remember any of these episodes. Patient with a history of HIV, patient's daughter reports that the patient's viral load was undetectable in February, recently had blood work but does not know the results. Chronic diarrhea for several months. Patient also with worsening severe chronic back pain. Pain is minimal currently at rest, severe with movement. Patient takes oxycodone multiple times a day. Patient's daughter reports that she sourced the patient's medications and that her sons administer medications to the patient so that she does not have access for overdose. Patient gets itchy from oxycodone so she oftentimes gives her Benadryl with the Percocet. Patient fell 2 days ago , daughter does not believe that the patient injured herself when this occurred. Chronic chills for several months, no change. Denies chest pain, abdominal pain, headache, dyspnea. (TITA LUI) Vital Signs & Intake/Output Vital Signs & Intake/Output Vital Signs Date Time Temp Pulse Resp B/P Pulse O2 O2 Flow FiO2 Ox Delivery Rate 09/02 1830 97.8 64 20 124/65 99 Room Air 09/02 1701 97.5 63 20 122/68 100 Room Air 09/02 1519 96 09/02 1518 69 16 126/62 97 Room Air 09/02 1407 97.2 72 16 92/64 97 Room Air Past History Travel History Traveled to [place] past 21 day No Medical History Any Pertinent Medical History? see below for history Neurological: migraine EENT: allergies Cardiovascular: NONE Respiratory: asthma, bronchitis, COPD, emphysema, pneumonia Gastrointestinal: GERD Hepatic: NONE Renal: NONE Musculoskeletal: disk herniation, osteoarthritis Psychiatric: anxiety, depression Endocrine: NONE Blood Disorders: anemia Cancer(s): AML INTERNAL CONSULTANT/Reproductive: HIV (undetectable load (12/2014)), GENITAL WARTS History of MRSA: No History of VRE: Yes History of CDIFF: No Surgical History Surgical History: non-contributory Psychosocial History Who do you live with Daughter Services at Home Nursing What is your primary language Hebrew Tobacco Use: Current Daily Use Daily Tobacco Use Amount/Type: => 5 Cigarettes daily ETOH Use: denies use Illicit Drug Use: denies illicit drug use Family History Family History, If Any: MOTHER (Breast cancer in her 60s, DM). FH: breast cancer FH: diabetes mellitus Hx Contributory? No (TITA LUI) Review of Systems Review of Systems Constitutional: Reports: weakness. Denies: chills, fever. EENTM: Reports: no symptoms. Respiratory: Denies: short of breath. Cardiovascular: Denies: chest pain, peripheral edema, syncope. GI: Reports: diarrhea (chronic). Denies: abdominal pain, nausea, vomiting. Genitourinary: Reports: no symptoms. Musculoskeletal: Reports: back pain (chronic, unchanged). Skin: Denies: rash. Neurological/Psychological: Reports: confusion. Denies: headache. Hematologic/Endocrine: Denies: bruising, bleeding. Immunologic/Allergic: Reports: HIV/AIDS. (TITA LUI) Physical Exam Physical Exam General Appearance: awake, lethargic Head: atraumatic, normal appearance Eyes: Bilateral: other (1 mm pupils bilaterally). Ears, Nose, Throat: normal ENT inspection, hearing grossly normal Neck: normal inspection, supple, full range of motion Respiratory: normal breath sounds, chest non-tender, no respiratory distress, lungs clear Cardiovascular: regular rate/rhythm Gastrointestinal: normal bowel sounds, soft, non-tender Extremities: normal inspection, normal capillary refill, normal range of motion, no edema Neurologic/Psych: awake, alert, lethargic, easily arousable, disoriented to time Skin: intact, normal color, warm/dry Lymphatic: no anterior cervical shawn Core Measures ACS in differential dx? No CVA/TIA Diagnosis: No Severe Sepsis Present: No Septic Shock Present: No (TITA LUI) Progress Differential Diagnoses I considered the following diagnoses in my evaluation of the patient: Medication induced, overdose, urinary tract infection, intracranial bleed, intracranial infection, electrolyte abnormality, sepsis Diagnostic Imaging: Viewed by Me: CT Scan. Discussed w/RAD: CT Scan. Radiology Impression: PATIENT: CAYETANO MIKE PRESENT AGE: 65 PATIENT ACCOUNT NO: [id number] : 49 LOCATION: [facility] ORDERING PHYSICIAN: TITA MCGEE SERVICE DATE: 09/02/16 EXAM TYPE: CAT - CT HEAD WO IV CONTRAST EXAMINATION: CT HEAD WITHOUT CONTRAST CLINICAL INFORMATION: Confusion. Hallucinations. Weakness. Recent fall. COMPARISON: CT head 05/26/2016 TECHNIQUE: Contiguous axial imaging was performed from the skull base to vertex without intravenous administration of contrast. DLP: 600.71 mGy- cm FINDINGS: There is no evidence of acute intracranial hemorrhage or territorial infarction. No abnormal mass effect or midline shift is seen. Ambriz to white matter differentiation is well preserved. No extra-axial fluid collections are identified. There is atrophy with prominence of the ventricles and the sulci and hypodensity of the periventricular white matter due to chronic small vessel ischemic disease. The osseous structures and soft tissues are normal. The mastoid air cells and visualized portions of the paranasal sinuses are well aerated. IMPRESSION: No acute intracranial pathology. DICTATED BY: MARLENI MCDONALD MD DATE/TIME DICTATED:09/02/161600 PAN CLEANER:JESSI DATE/TIME TRANSCRIBED:09/02/161600 CONFIDENTIAL, DO NOT COPY WITHOUT APPROPRIATE AUTHORIZATION. <Electronically signed in Other Vendor System> SIGNED BY: MARLENI MCDONALD MD 09/02/161606 Initial ED EKG: normal axis, normal intervals, normal p-waves, normal QRS complex, normal sinus rhythm, no ST T wave changes (TITA LUI) Plan of Care: Orders Procedure Date/time Status Add-on Test (ER Only) 09/02 1812 Active CULTURE,URINE 09/02 1728 Active URINE DRUG SCREEN FOR ER ONLY 09/02 1515 Complete URINALYSIS 09/02 1514 Active THYROID STIMULATING HORMONE 09/02 1514 Complete ETHANOL 09/02 1514 Complete COMPREHENSIVE METABOLIC PANEL 09/02 1514 Complete CREATINE PHOSPHOKINASE 09/02 1514 Complete CBC WITHOUT DIFFERENTIAL 09/02 1514 Complete EKG 09/02 1514 Active Laboratory Tests 09/02/16 1728: Urine Opiates Screen 1540.00, Methadone Screen 82, Barbiturate Screen < 60, Ur Phencyclidine Scrn < 6.00, Amphetamines Screen < 100, U Benzodiazepines Scrn < 85, Urine Cocaine Screen < 50, Urine Cannabis Screen < 5.00, Urine Color YEL, Urine Clarity CLEAR, Urine pH 6.0, Ur Specific [place] 1.025, Urine Protein TRACE H, Urine Ketones TRACE H, Urine Nitrite POS H, Urine Bilirubin NEG, Urine Urobilinogen 0.2, Ur Leukocyte Esterase TRACE H, Ur Microscopic SEDIMENT EXAMINED, Urine RBC Pending, Urine Hemoglobin NEG, Urine Glucose NEG 09/02/16 1527: Anion Gap 12, Estimated GFR > 60, BUN/Creatinine Ratio 21.3, Glucose 96, Calcium 9.6, Total Bilirubin 0.8, AST 43 H, ALT 43, Alkaline Phosphatase 77, Creatine Kinase 194 H, Total Protein 6.7, Albumin 4.1, Globulin 2.6, Albumin/Globulin Ratio 1.6, TSH 4.090, CBC w Diff NO MAN DIFF REQ, RBC 3.54 L, MCV 101.8 H, MCH 34.2 H, RDW 15.0 H, MPV 7.7, Gran % 68.3, Lymphocytes % 17.2 L, Monocytes % 12.6 H, Eosinophils % 1.6, Basophils % 0.3, Absolute Granulocytes 6.9 H, Absolute Lymphocytes 1.7, Absolute Monocytes 1.3 H, Absolute Eosinophils 0.2, Absolute Basophils 0, PUBS MCHC 33.6, Serum Alcohol < 10.0 Microbiology 09/02 1728 URINE ROUT: Urine Culture - RECD 09/03 1515 BLOOD: Blood Culture - CAN Cancelled: Cancelled via OE: Per Decision 09/03 1515 BLOOD: Blood Culture - CAN Cancelled: Cancelled via OE: Per Decision 09/02/2016 4:24:19 PM: Results of labs and imaging discussed with patient and her daughter. Toradol ordered for patient's back pain. Discussed with Dr. Marsh. 09/02/2016 6:39:30 PM: All results were discussed with the patient and her daughter. Patient is nontoxic appearing. Patient's daughter appears comfortable with bringing the patient home. Advised close follow-up with her primary care provider and/or her infectious disease specialist. (TITA LUI) Departure Departure Disposition: HOME OR SELF CARE Condition: Stable Clinical Impression Primary Impression: Urinary tract infection Secondary Impressions: Altered mental state Referrals: HAYLIE WORKMAN APRN (PCP/Family) Additional Instructions: Follow up with your doctor early next week for further evaluation. Call Monday for appointment. Discuss your medications with your doctors as these may be contributing to confusion also. Return to the ER if fevers, increasing confusion or worsening of symptoms. Departure Forms: Customer Survey General Discharge Information Prescriptions: Current Visit Scripts Ciprofloxacin HCl (Cipro) 1 TAB PO BID #14 TAB (TITA LUI) PA/HVAC MAINTENANCE TECHNICIAN Co-Sign Statement Statement: ED Attending supervision documentation- [X] I saw and evaluated the patient. I have also reviewed all the pertinent lab results and diagnostic results. I agree with the findings and the plan of care as documented in the PA's/HVAC MAINTENANCE TECHNICIAN's documentation. [] I have reviewed the ED Record and agree with the PA's/HVAC MAINTENANCE TECHNICIAN's documentation. [] Additions or exceptions (if any) to the PAs/HVAC MAINTENANCE TECHNICIAN's note and plan are summarized below: [] (NAVNEET CARBAJAL,CARLOS ENRIQUE Stewart) Critical Care Note Critical Care Note Critical Care Time: non-applicable (TITA LUI)
[2016-09-02 15:39] LABS: ABSOLUTE BASOPHIL COUNT 0 /CUMM (0.0-0.2); ABSOLUTE EOSINOPHIL COUNT 0.2 /CUMM (0.0-0.7); ABSOLUTE GRANULOCYTE CT 6.9 /CUMM (1.4-6.5); ABSOLUTE LYMPH COUNT 1.7 /CUMM (1.2-3.4); ABSOLUTE MONOCYTE COUNT 1.3 /CUMM (0.10-0.60); BASOPHIL % 0.3 % (0.0-2.0); EOSINOPHIL % 1.6 % (0-5); GRANULOCYTE % 68.3 % (42.2-75.2); HEMATOCRIT 36.1 % (37-47); MEAN CORPUSCULAR HGB 34.2 PG (27.0-31.0); MEAN CORPUSCULAR HGB CONC 33.6 G/DL (33.0-37.0); MEAN CORPUSCULAR VOLUME 101.8 FL (81.0-99.0); MEAN PLATELET VOLUME 7.7 FL (7.4-10.4); PLATELET COUNT 301 /CUMM (130-400); RED BLOOD CELL CT 3.54 /CUMM (4.20-5.40); WHITE BLOOD CELL COUNT 10.1 /CUMM (4.8-10.8)
--- NOTE | 2016-09-02 16:07 | CT SCAN REPORT ---
EXAMINATION: CT HEAD WITHOUT CONTRAST CLINICAL INFORMATION: Confusion. Hallucinations. Weakness. Recent fall. COMPARISON: CT head 05/26/2016 TECHNIQUE: Contiguous axial imaging was performed from the skull base to vertex without intravenous administration of contrast. DLP: 600.71 mGy-cm FINDINGS: There is no evidence of acute intracranial hemorrhage or territorial infarction. No abnormal mass effect or midline shift is seen. Ambriz to white matter differentiation is well preserved. No extra-axial fluid collections are identified. There is atrophy with prominence of the ventricles and the sulci and hypodensity of the periventricular white matter due to chronic small vessel ischemic disease. The osseous structures and soft tissues are normal. The mastoid air cells and visualized portions of the paranasal sinuses are well aerated. IMPRESSION: No acute intracranial pathology.
[2016-09-02] MEDS ORDERED: CIPRO500 M1 PO (18:18)
[2016-09-02] MEDS ORDERED: ONDANSETRON HCL4 MG PO (18:23)
[2016-09-02] MEDS ORDERED: POTASSIUM CHLO20 ME2 PO (18:27)
[2016-09-02 18:30] VITALS: BP 124/65
== END 2016-09-02 18:48 ==
LOC: ERH 14:03
PROVIDERS: Physician Assistant
DX: N39.0 Urinary tract infection, site not specified (principal); R41.82 Altered mental status, unspecified; B20 Human immunodeficiency virus [HIV] disease
CPT/HCPCS: 80307; 81001; 87040; 87086; 93005; 93010; 96374; 96375; G0480; J0696; J1885

== ENCOUNTER 2017-08-29 13:11 | Emergency (ER) | payer OTHER ==
[~2017-08-29 13:11] MED LIST changes: +CIPRO500 M1 PO; +ONDANSETRON HCL4 MG PO; +POTASSIUM CHLO20 ME2 PO
--- NOTE | 2017-08-29 14:04 | ED GI/GU/ABDOMINAL COMPLAINT ---
History of Present Illness General Chief Complaint: General Adult Stated Complaint: BIBA FOR NVD Source: patient, family Exam Limitations: no limitations Allergies Coded Allergies: oxycodone (From PERCOCET) (ITCH 09/02/16) Triage Note: PT BIBA FROM HOME WITH C/O LOW BLOOD PRESSURE AND WEAKNESS. PT C/O WEAKNESS SINCE MONDAY, ALSO C/O NAUSEA. PT HAD SURGERY ON HER NOSE ON MONDAY AT [place] Triage Nurses Notes Reviewed? yes ? N Is pt currently ? No Onset: Gradual Duration: getting worse Timing: recent history Severity Numbers: 7 Location: generalized abdomen Radiation: no radiation HPI: Patient is a 66-year-old female with a past medical history of HIV, COPD not on home O2 chronic pain, depression and anxiety and male status post chemotherapy in 2007 in remission, hypertension, migraines, and a former smoker and a 15 month history of throat cancer where she had tumor resection of the throat and radiation therapy since patient has had 2 resections of her nasal passages to the right nares where her last procedure was 2 weeks ago where she has an indwelling tube to the right nares however patient presents emergency room with concerns of a 5 day history of diarrhea initially and nausea vomiting abdominal pain in the past 48 hours. Patient has a G-tube for feeding however the daughter who is present states that there may be a small tear in the G-tube due to mild amount of fluid discharge Patient's oncologist and care is primarily at [facility] Denies fevers but does have chills Diarrhea has noted to be loose watery with no blood or melena. No recent antibiotics. Denies and chest pain arm pain jaw pain (Ismael MCGEE,Stanley) Vital Signs & Intake/Output Vital Signs & Intake/Output Vital Signs Date Time Temp Pulse Resp B/P B/P Pulse O2 O2 Flow FiO2 Mean Ox Delivery Rate 08/292 97.4 72 18 124/66 97 Room Air 08/30 2007 96.7 66 20 119/63 96 Room Air 08/29 1725 97.6 71 20 142/62 97 Room Air 08/29 1513 98.3 76 20 125/61 98 Room Air 08/29 1316 98.0 72 18 114/80 99 Room Air (Salma CARBAJAL,Solomon Pichardo) Reconcile Medications Acetaminophen 500 MG TABLET 1 TAB PO TID PRN PAIN (Reported) Albuterol Sulfate (Proair Hfa) 90 MCG HFA.AER.AD 2 PUF INH PRN SOB (Reported) Alendronate Sodium 70 MG TABLET 1 TAB PO QSUN OSTEOPOROSIS (Reported) in the morning, at least 30 minutes before the first food, beverage, or medication of the day Celecoxib (Celebrex) 100 MG CAPSULE 1 CAP PO BID ARTHRITIS - LOWER BACK ( Reported) Cevimeline HCl 30 MG CAPSULE 1 CAP PO TID SALIVA (Reported) Clotrimazole 10 MG FILIPE 1 TAB PO 5 TIMES A DAY THRUSH Elviteg/Samia/Emtric/Tenofo Ala (Genvoya Tablet) 150 MG-150 MG-200 MG-10 MG TABLET 1 TAB PO DAILY ANTIVIRAL (Reported) Gabapentin 300 MG CAPSULE 1 CAP PO TID NERVE PAIN (Reported) Ibuprofen 800 MG TABLET 1 TAB PO TID PRN PAIN (Reported) Loperamide HCl (Imodium A-D) 2 MG TABLET 1 TAB PO PRN DIARRHEA (Reported) NOT MORE THAN 8/DAY Mirtazapine 45 MG TABLET 1 TAB PO QPM SLEEP (Reported) Morphine Sulfate 15 MG TABLET 1 TAB PO TID PAIN (Reported) Ondansetron HCl 4 MG TABLET 1 TAB PO Q8H PRN N/V (Reported) Pantoprazole Sodium 40 MG TABLET.DR 1 TAB PO DAILY GI (Reported) Propranolol HCl 20 MG TABLET 1 TAB PO QAM MIGRAINES (Reported) Valacyclovir HCl (Valtrex) 1,000 MG TABLET 1 TAB PO DAILY HERPES SIMPLEX ( Reported) (Solomon Mcbride DO) Past History Travel History Traveled to [place] past 21 day No Medical History Any Pertinent Medical History? 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 FH: breast cancer FH: diabetes mellitus Hx Contributory? No (Stanley Rodriguez) Review of Systems Review of Systems Constitutional: Reports: see HPI, chills. EENTM: Reports: no symptoms. Respiratory: Reports: no symptoms. Cardiovascular: Reports: no symptoms. GI: Reports: see HPI, abdominal pain, nausea, vomiting. Genitourinary: Reports: no symptoms. Musculoskeletal: Reports: no symptoms. Skin: Reports: no symptoms. Neurological/Psychological: Reports: no symptoms. Hematologic/Endocrine: Reports: no symptoms. Immunologic/Allergic: Reports: no symptoms. All Other Systems: Reviewed and Negative (Stanley Rodriguez) Physical Exam Physical Exam General Appearance: no apparent distress, thin Head: atraumatic Eyes: Bilateral: normal appearance. Ears, Nose, Throat, Mouth: hearing grossly normal Neck: normal inspection Respiratory: no respiratory distress Cardiovascular: regular rate/rhythm Gastrointestinal: normal bowel sounds, tenderness, G-TUBE INPLACE Extremities: normal range of motion Skin: intact, normal color Core Measures ACS in differential dx? No Sepsis Present: No Sepsis Focused Exam Completed? No (Stanley Rodriguez) Progress Differential Diagnosis: AAA, AMI, appendicitis, biliary colic, bowel obstruction , colon cancer, cholecystitis, diverticulitis, endometritis, esophageal varices, gastritis, hepatitis, hemorrhoids, ischemic bowel, inflamm bowel dis, kidney stone, Rosio-Artem tear, ovarian cyst, ovarian torsion, pancreatitis, PID/ cervicitis, peptic ulcer, PUD/GERD, perforated viscous, SBO, UTI/pyelo Diagnostic Imaging: Viewed by Me: CT Scan. Initial ED EKG: normal intervals, normal QRS complex, NSR 79 BPM, Hand-Off Endorsed To: Solomon Mcbride DO Endorsed Time: 2003 Pending: CT (Stanley Rodriguez) Plan of Care: Orders Procedure Date/time Status LACTIC ACID 08/29 1728 Complete URINALYSIS 08/29 1428 Complete TROPONIN LEVEL 08/29 1428 Complete LIPASE 08/29 1428 Complete LACTIC ACID 08/29 1428 Complete COMPREHENSIVE METABOLIC PANEL 08/29 1428 Complete CBC WITHOUT DIFFERENTIAL 08/29 1428 Complete AMYLASE 08/29 1428 Complete EKG 08/29 1324 Active Laboratory Tests 08/29/17 1920: Urine Color YEL, Urine Clarity CLEAR, Urine pH 8.0, Ur Specific [place] 1.010, Urine Protein NEG, Urine Ketones NEG, Urine Nitrite NEG, Urine Bilirubin NEG, Urine Urobilinogen 0.2, Ur Leukocyte Esterase SMALL H, Ur Microscopic SEDIMENT EXAMINED, Urine RBC 1-3, Urine WBC 10-15 H, Ur Epithelial Cells MOD H, Urine Bacteria MANY H, Urine Mucus FEW, Urine Hemoglobin NEG, Urine Glucose NEG 08/29/17 1746: Lactic Acid 1.0 08/29/17 1445: Anion Gap 12, Estimated GFR > 60, BUN/Creatinine Ratio 34.0 H, Glucose 80, Lactic Acid 1.8, Calcium 8.2 L, Total Bilirubin 0.5, AST 22, ALT 24, Alkaline Phosphatase 111, Troponin I < 0.01, Total Protein 5.9 L, Albumin 3.1 L, Globulin 2.8, Albumin/Globulin Ratio 1.1, Amylase 82, Lipase 109, CBC w Diff NO MAN DIFF REQ, RBC 4.34, MCV 97.5, MCH 31.8 H, MCHC 32.6 L, RDW 14.0, MPV 8.4, Gran % 75.9 H, Lymphocytes % 12.8 L, Monocytes % 9.8 H, Eosinophils % 1.3, Basophils % 0.2, Absolute Granulocytes 7.5 H, Absolute Lymphocytes 1.3, Absolute Monocytes 1.0 H, Absolute Eosinophils 0.1, Absolute Basophils 0 Patient on initial presentation was resting comfortably AT BEDSIDE, however was complaining of abdominal pain 6 mg of morphine was administered patient states that she had no change in symptoms 6 more milligrams of morphine were administered, area blood work with patient CT scan currently pending Patient was afebrile no leukocytosis CT scan currently pending discussed handoff with dr mcbride (Stanley Rodriguez) (Solomon Marsh MD) Departure Departure Disposition: STILL A PATIENT Condition: Stable Referrals: Bc Meza APRN (PCP/Family) Departure Forms: Customer Survey General Discharge Information (Stanley Rodriguez) PA/SERVICE DIRECTOR Co-Sign Statement Statement: ED Attending supervision documentation- [X] I saw and evaluated the patient. I have also reviewed all the pertinent lab results and diagnostic results. I agree with the findings and the plan of care as documented in the PA's/SERVICE DIRECTOR's documentation. Patient presents for evaluation of worsening diarrhea and neck pain since throat cancer resection roughly 2 weeks ago. Physical examination reveals voice hoarseness and diffusely tender abdominal examination. [] I have reviewed the ED Record and agree with the PA's/SERVICE DIRECTOR's documentation. [] Additions or exceptions (if any) to the PAs/SERVICE DIRECTOR's note and plan are summarized below: [] (Salma CARBAJAL,Solomon Pichardo) Departure Clinical Impression Primary Impression: Abdominal pain Secondary Impressions: Thrush Prescriptions: Current Visit Scripts Clotrimazole 1 TAB PO 5 TIMES A DAY #70 TAB Comments 08/29/17 10:32 PM The patient is essentially comfortable. She does have ongoing pain and was given morphine. Her vital signs are stable she is afebrile. Labs are essentially unremarkable. CT scan of the head neck and abdomen is negative for acute changes. She does have thrush. She was treated with Magic mouthwash and Diflucan. I did page her infectious disease physician and was unable to reach him. She is following up for placement of the G-tube tomorrow at the [facility]. She has a follow-up appointment with her ear nose and throat doctor on Monday. She will return to the emergency department if fever or worse in anyway. CT scan of the neck shown below PATIENT: CAYETANO MIKE PRESENT AGE: 66 PATIENT ACCOUNT NO: [id number] : 49 LOCATION: [facility] ORDERING PHYSICIAN: Stanley MCGEE SERVICE DATE: 08/29/17 EXAM TYPE: CAT - CT NECK WO IV CONTRAST EXAMINATION: CT NECK WITHOUT CONTRAST CLINICAL INFORMATION: Throat pain. History of throat cancer. COMPARISON: None TECHNIQUE: Multidetector helical imaging was performed in the axial plane. DLP: 318.8 mGy-cm FINDINGS: Although this noncontrast study is limited for assessment, the patient appears to have had a left oropharyngeal wall soft tissue flap reconstruction. Multiple surgical clips are present along the graft. The patient is suspected to have had a left-sided florina dissection as well. An ETT is in place via a right nasal cavity approach. There are secretions and fluid in the nasal passages and nasopharynx which limits evaluation. The floor of the mouth and structures in the oral cavity are distorted due to prior surgery. No obvious bulky cervical adenopathy is seen, though assessment is limited. No drainable fluid collections are visible. There is mild soft tissue thickening of the laryngeal structures which may reflect the chronic sequela of prior radiation treatment. The airway is maintained. The unenhanced thyroid gland is grossly unremarkable. The left submandibular gland has been resected. The right submandibular gland appears normal. The parotid glands are unremarkable. There is mild mucosal thickening in the paranasal sinuses. There is some fluid dependently in the left mastoid air cells. Moderate sigmoidal-shaped nasal septal deviation noted. The orbits appear normal. The imaged portions of the brain demonstrate no acute abnormality. Moderate frontal lobe volume loss is partially visualized. The skull base otherwise appears normal. The TMJs are unremarkable. The superior mediastinum is normal. There are advanced emphysematous changes in the lungs. Mild anterior subluxation noted at C3-C4. IMPRESSION: Limited noncontrast study with no acute findings. Status post left oropharyngeal wall soft tissue flap reconstruction with left-sided cervical florina dissection. No obvious soft tissue mass identified, however, assessment is limited without intravenous contrast and comparison to prior imaging. No bulky cervical adenopathy. Presumed posttreatment changes in the larynx. ETT via a right nasal passage approach terminates in the oropharyngeal airway. Fluid secretions subtotally opacifying the nasal passages. Severe emphysema. DICTATED BY: Keith Cruz MD DATE/TIME DICTATED:08/29/171951 ORGANIC PREPARATION ANALYST:JESSI DATE/TIME TRANSCRIBED:08/29/171951 CONFIDENTIAL, DO NOT COPY WITHOUT APPROPRIATE AUTHORIZATION. <Electronically signed in Other Vendor System> SIGNED BY: Keith Cruz MD 2007 PATIENT: CAYETANO MIKE PRESENT AGE: 66 PATIENT ACCOUNT NO: [id number] : 49 LOCATION: [facility] ORDERING PHYSICIAN: Stanley MCGEE SERVICE DATE: 08/29/17 EXAM TYPE: CAT - CT ABD & PELVIS W IV CONTRAST; CTA CHEST-PULMONARY EMBOLISM EXAMINATION: CT ANGIOGRAM OF THE CHEST WITH AND WITHOUT CONTRAST (CT PULMONARY ANGIOGRAM FOR PE) EXAMINATION: CT ABDOMEN AND PELVIS WITH CONTRAST CLINICAL INFORMATION: 66-year-old female with throat cancer. Abdominal pain nausea vomiting. Diarrhea. Shortness of breath. Presumptive diagnoses pulmonary embolism. COMPARISON: CT of the abdomen and pelvis on 05/27/2016. (Unremarkable). CT the chest on 09/05/2015. (COPD, No adenopathy). TECHNIQUE: Prior to contrast administration, noncontrast localization images were obtained. Subsequently, multidetector volumetric imaging was performed from the thoracic inlet to below the diaphragms following the administration of 95 mL Optiray 320 intravenous contrast. No contrast reaction reported Sagittal, coronal, and MIP oblique sagittal reformatted images were obtained on the CT workstation, uploaded to PACS, and reviewed. Multidetector volumetric imaging was performed from the lung bases to the pubic symphysis following the administration of: Oral contrast: none Sagittal and coronal reformatted images were obtained on the technologist workstation. Total exam dose-length product 389 mGy-cm FINDINGS: Steel Grinder: A gastrostomy tube is in place. There is no sign of intestinal obstruction. The lungs appear clear. CHEST: QUALITY OF STUDY/CONTRAST BOLUS: Excellent PULMONARY ARTERIES: No central or segmental pulmonary emboli. THORACIC AORTA: No aneurysm or dissection. LUNG: Again there is wide spread centrilobular and paraseptal emphysema. The following nodules are stable and unchanged: (No suspicious) 1. 5 mm oblong nodule in the right upper lobe, series 2, image 61. 2. 4 mm nodule left upper lobe, not visible. 3. 5 mm pleural-based nodule in the right lower lobe, series 2, image 224. 4. 4 mm perivascular nodule right middle lobe, series 2, image 278. 5. 2 mm nodule right upper lobe, series 2, image 141. A number of irregular parenchymal opacities are located in the anterior basal and lateral basal segments of the left lower lobe. Series 2, image 3:30. This could represent atelectasis but the significance of this finding is to be determined. A tiny Bochdalek hernia containing fat is seen in the posterior aspect of the left hemidiaphragm. Series 2, image 353. PLEURA: No pleural effusion or pneumothorax. MEDIASTINUM: The clustered AP window nodes are seen in size and number. The small nodes in both stephanie are likely reactive. The subcarinal nodes are stable. CHEST WALL/AXILLA: No axillary or internal mammary lymphadenopathy. LIVER, GALLBLADDER, AND BILIARY TREE: The liver is normal in size and shape showing no focal masses. Again there is evidence of dilatation of the intrahepatic biliary ducts. The common bile duct measures 1.2 cm in the head of the pancreas. Gallbladder is enlarged. These observations were made on prior exams. PANCREAS: Normal; no mass or surrounding fluid. SPLEEN: Normal size. No focal lesion. ADRENAL GLANDS: Normal; no mass. KIDNEYS AND URETERS: The kidneys are normal in size, shape, and attenuation. No hydronephrosis, hydroureter, or calculi. GASTROINTESTINAL TRACT: Stomach and small bowel non-dilated. There is universal diverticulosis without diverticulitis. Some of the diverticula contain positive contrast from previous exams. No colonic wall thickening or pericolonic inflammatory changes. Normal appendix. ABDOMINAL WALL: No hernia seen. LYMPHOVASCULAR STRUCTURES: No lymphadenopathy. The aorta is normal in caliber. BLADDER: Nearly empty but normal. PELVIC VISCERA: Postmenopausal uterus. OSSEOUS STRUCTURES: No acute or suspicious osseous abnormality. Again, severe disc disease at L4-L5 and L5-S1. IMPRESSION: 1. No evidence of pulmonary embolism. 2. No suspicious pulmonary nodules. Severe emphysema. 3. Mediastinal or hilar nodes are stable. 4. Dilated intrahepatic and gastrohepatic biliary ducts of unknown etiology. Similar findings in the past. 5. Diverticulosis. 6. No metastatic disease in the abdomen or pelvis. VTE: Negative. DICTATED BY: Armando Garay MD DATE/TIME DICTATED:08/29/171908 ORGANIC PREPARATION ANALYST:JESSI DATE/TIME TRANSCRIBED:08/29/171908 CONFIDENTIAL, DO NOT COPY WITHOUT APPROPRIATE AUTHORIZATION. <Electronically signed in Other Vendor System> SIGNED BY: Armando Garay MD 1953 (Solomon Mcbride DO
[2017-08-29] MEDS ORDERED: CEVIMELINE HCL30 M1 PO (14:28)
[2017-08-29] MEDS ORDERED: MIRTAZAPINE45 M1 PO (14:28)
[2017-08-29] MEDS ORDERED: MORPHINE SULFAT15 M4 PO (14:29)
[2017-08-29] MEDS ORDERED: IBUPROFEN800 M1 PO (14:30)
[2017-08-29] MEDS ORDERED: ACETAMINOPHEN500 M4 PO (14:30)
[2017-08-29 14:56] LABS: ABSOLUTE BASOPHIL COUNT 0 /CUMM (0.0-0.2); ABSOLUTE EOSINOPHIL COUNT 0.1 /CUMM (0.0-0.7); ABSOLUTE GRANULOCYTE CT 7.5 /CUMM (1.4-6.5)
[2017-08-29 14:59] LABS: ABSOLUTE LYMPH COUNT 1.3 /CUMM (1.2-3.4); BASOPHIL % 0.2 % (0.0-2.0); EOSINOPHIL % 1.3 % (0-5); GRANULOCYTE % 75.9 % (42.2-75.2); HEMATOCRIT 42.3 % (37-47); MEAN CORPUSCULAR HGB 31.8 PG (27.0-31.0); MEAN CORPUSCULAR HGB CONC 32.6 G/DL (33.0-37.0); MEAN CORPUSCULAR VOLUME 97.5 FL (81.0-99.0); MEAN PLATELET VOLUME 8.4 FL (7.4-10.4); PLATELET COUNT 356 /CUMM (130-400); RED BLOOD CELL CT 4.34 /CUMM (4.20-5.40); WHITE BLOOD CELL COUNT 9.9 /CUMM (4.8-10.8)
--- NOTE | 2017-08-29 19:54 | CT SCAN REPORT ---
EXAMINATION: CT ANGIOGRAM OF THE CHEST WITH AND WITHOUT CONTRAST (CT PULMONARY ANGIOGRAM FOR PE) EXAMINATION: CT ABDOMEN AND PELVIS WITH CONTRAST CLINICAL INFORMATION: 66-year-old female with throat cancer. Abdominal pain nausea vomiting. Diarrhea. Shortness of breath. Presumptive diagnoses pulmonary embolism. COMPARISON: CT of the abdomen and pelvis on 05/27/2016. (Unremarkable). CT the chest on 09/05/2015. (COPD, No adenopathy). TECHNIQUE: Prior to contrast administration, noncontrast localization images were obtained. Subsequently, multidetector volumetric imaging was performed from the thoracic inlet to below the diaphragms following the administration of 95 mL Optiray 320 intravenous contrast. No contrast reaction reported Sagittal, coronal, and MIP oblique sagittal reformatted images were obtained on the CT workstation, uploaded to PACS, and reviewed. Multidetector volumetric imaging was performed from the lung bases to the pubic symphysis following the administration of: Oral contrast: none Sagittal and coronal reformatted images were obtained on the technologist workstation. Total exam dose-length product 389 mGy-cm FINDINGS: Scrubber System Attendant: A gastrostomy tube is in place. There is no sign of intestinal obstruction. The lungs appear clear. CHEST: QUALITY OF STUDY/CONTRAST BOLUS: Excellent PULMONARY ARTERIES: No central or segmental pulmonary emboli. THORACIC AORTA: No aneurysm or dissection. LUNG: Again there is wide spread centrilobular and paraseptal emphysema. The following nodules are stable and unchanged: (No suspicious) 1. 5 mm oblong nodule in the right upper lobe, series 2, image 61. 2. 4 mm nodule left upper lobe, not visible. 3. 5 mm pleural-based nodule in the right lower lobe, series 2, image 224. 4. 4 mm perivascular nodule right middle lobe, series 2, image 278. 5. 2 mm nodule right upper lobe, series 2, image 141. A number of irregular parenchymal opacities are located in the anterior basal and lateral basal segments of the left lower lobe. Series 2, image 3:30. This could represent atelectasis but the significance of this finding is to be determined. A tiny Bochdalek hernia containing fat is seen in the posterior aspect of the left hemidiaphragm. Series 2, image 353. PLEURA: No pleural effusion or pneumothorax. MEDIASTINUM: The clustered AP window nodes are seen in size and number. The small nodes in both stephanie are likely reactive. The subcarinal nodes are stable. CHEST WALL/AXILLA: No axillary or internal mammary lymphadenopathy. LIVER, GALLBLADDER, AND BILIARY TREE: The liver is normal in size and shape showing no focal masses. Again there is evidence of dilatation of the intrahepatic biliary ducts. The common bile duct measures 1.2 cm in the head of the pancreas. Gallbladder is enlarged. These observations were made on prior exams. PANCREAS: Normal; no mass or surrounding fluid. SPLEEN: Normal size. No focal lesion. ADRENAL GLANDS: Normal; no mass. KIDNEYS AND URETERS: The kidneys are normal in size, shape, and attenuation. No hydronephrosis, hydroureter, or calculi. GASTROINTESTINAL TRACT: Stomach and small bowel non-dilated. There is universal diverticulosis without diverticulitis. Some of the diverticula contain positive contrast from previous exams. No colonic wall thickening or pericolonic inflammatory changes. Normal appendix. ABDOMINAL WALL: No hernia seen. LYMPHOVASCULAR STRUCTURES: No lymphadenopathy. The aorta is normal in caliber. BLADDER: Nearly empty but normal. PELVIC VISCERA: Postmenopausal uterus. OSSEOUS STRUCTURES: No acute or suspicious osseous abnormality. Again, severe disc disease at L4-L5 and L5-S1. IMPRESSION: 1. No evidence of pulmonary embolism. 2. No suspicious pulmonary nodules. Severe emphysema. 3. Mediastinal or hilar nodes are stable. 4. Dilated intrahepatic and gastrohepatic biliary ducts of unknown etiology. Similar findings in the past. 5. Diverticulosis. 6. No metastatic disease in the abdomen or pelvis. VTE: Negative.
--- NOTE | 2017-08-29 20:08 | CT SCAN REPORT ---
EXAMINATION: CT NECK WITHOUT CONTRAST CLINICAL INFORMATION: Throat pain. History of throat cancer. COMPARISON: None TECHNIQUE: Multidetector helical imaging was performed in the axial plane. DLP: 318.8 mGy-cm FINDINGS: Although this noncontrast study is limited for assessment, the patient appears to have had a left oropharyngeal wall soft tissue flap reconstruction. Multiple surgical clips are present along the graft. The patient is suspected to have had a left-sided florina dissection as well. An ETT is in place via a right nasal cavity approach. There are secretions and fluid in the nasal passages and nasopharynx which limits evaluation. The floor of the mouth and structures in the oral cavity are distorted due to prior surgery. No obvious bulky cervical adenopathy is seen, though assessment is limited. No drainable fluid collections are visible. There is mild soft tissue thickening of the laryngeal structures which may reflect the chronic sequela of prior radiation treatment. The airway is maintained. The unenhanced thyroid gland is grossly unremarkable. The left submandibular gland has been resected. The right submandibular gland appears normal. The parotid glands are unremarkable. There is mild mucosal thickening in the paranasal sinuses. There is some fluid dependently in the left mastoid air cells. Moderate sigmoidal-shaped nasal septal deviation noted. The orbits appear normal. The imaged portions of the brain demonstrate no acute abnormality. Moderate frontal lobe volume loss is partially visualized. The skull base otherwise appears normal. The TMJs are unremarkable. The superior mediastinum is normal. There are advanced emphysematous changes in the lungs. Mild anterior subluxation noted at C3-C4. IMPRESSION: Limited noncontrast study with no acute findings. Status post left oropharyngeal wall soft tissue flap reconstruction with left-sided cervical florina dissection. No obvious soft tissue mass identified, however, assessment is limited without intravenous contrast and comparison to prior imaging. No bulky cervical adenopathy. Presumed posttreatment changes in the larynx. ETT via a right nasal passage approach terminates in the oropharyngeal airway. Fluid secretions subtotally opacifying the nasal passages. Severe emphysema.
[2017-08-29] MEDS ORDERED: CLOTRIMAZOLE10 M1 PO (22:37)
[2017-08-29 22:42] VITALS: BP 124/66
== END 2017-08-29 23:30 ==
LOC: ERH 13:11
PROVIDERS: Physician Assistant
DX: B37.0 Candidal stomatitis (principal); B20 Human immunodeficiency virus [HIV] disease; R10.9 Unspecified abdominal pain
CPT/HCPCS: 74177; 81001; 93005; 93010; 96374; 96375; 96376; J2405

== ENCOUNTER 2017-11-20 11:25 | Inpatient (IN) | payer OTHER ==
[~2017-11-20] VITALS: Ht 149.9 cm; Wt 47.2 kg
[~2017-11-20 11:25] MED LIST changes: +ACETAMINOPHEN500 M4 PO; +CEVIMELINE HCL30 M1 PO; +CLOTRIMAZOLE10 M1 PO; +IBUPROFEN800 M1 PO; +MIRTAZAPINE45 M1 PO
[2017-11-20] MEDS ORDERED: CELEXA20 M1 PO (11:45)
[2017-11-20] MEDS ORDERED: REGLAN10 M1 PO (11:47)
--- NOTE | 2017-11-20 12:16 | ED GI/GU/ABDOMINAL COMPLAINT ---
History of Present Illness General Chief Complaint: Nausea, Vomiting, Diarrhea Stated Complaint: BIBA N/V/D Source: patient, family, old records Exam Limitations: no limitations Vital Signs & Intake/Output Vital Signs & Intake/Output Vital Signs Date Time Temp Pulse Resp B/P B/P Pulse O2 O2 Flow FiO2 Mean Ox Delivery Rate 11/21 0642 97.3 63 20 134/75 100 Room Air 11/21 0616 63 134/75 11/20 2218 97.5 50 18 140/60 100 Room Air 11/20 1940 98.6 56 24 151/68 98 Room Air 11/20 1829 98.4 55 / 1722 46 18 180/79 100 Room Air / 1505 96.6 52 20 175/73 100 Room Air 11/20 1502 97.7 11/20 1141 99 11/20 1131 97.7 47 18 164/77 100 Room Air ED Intake and Output 11/21 0000 11/20 1200 Intake Total 2060 0 Output Total 400 Balance 1660 0 Intake, IV 2000 Intake, Oral 0 0 Intake, Tube 60 Irrigant Number 2 Bowel Movements Output, Urine 400 Patient 104 lb 110 lb Weight Weight Reported by Patient Reported by Patient Measurement Method Allergies Coded Allergies: oxycodone (From PERCOCET) (ITCH 09/02/16) Triage Note: PT STATES SHE HAS HAD N/V/D FOR THE PAST FEW DAYS. PT STATES SHE IS UNABLE TO KEEP ANYTHING DOWN. PT WAS JUST DISCHARGED FROM THE HOSPITAL. Triage Nurses Notes Reviewed? yes ? N Is pt currently ? No Onset: Gradual Duration: day(s): Timing: recent history Quality/Severity: moderate Location: epigastric HPI: 67yo female with hx of HIV, recent c diff infection recently discharge from [place] on 11/11 presents to ED complaining of recent nausea and nonbloody vomiting beginning yesterday and worsening c diff symptoms. Patient also reports cough since . Patient reports abdominal pain and profuse diarrhea despite use of antibiotics, she is currently still on the antibiotics, Vancomycin. Patient reports 6-7 episodes of nonbloody diarrhea per day. Patient is fed through a G- tube. They deny fevers. (Bianka MCGEE,Lneora Clarke) Reconcile Medications Acetaminophen 500 MG TABLET 1 TAB PO TID PRN PAIN (Reported) Alendronate Sodium 70 MG TABLET 1 TAB PO QSUN OSTEOPOROSIS (Reported) in the morning, at least 30 minutes before the first food, beverage, or medication of the day Celecoxib (Celebrex) 100 MG CAPSULE 1 CAP PO BID ARTHRITIS - LOWER BACK ( Reported) Cevimeline HCl 30 MG CAPSULE 1 CAP PO TID SALIVA (Reported) Citalopram Hydrobromide (Celexa) 20 MG TABLET 1 TAB PO DAILY MENTAL HEALTH ( Reported) Elviteg/Samia/Emtric/Tenofo Ala (Genvoya Tablet) 150 MG-150 MG-200 MG-10 MG TABLET 1 TAB PO DAILY ANTIVIRAL (Reported) Furosemide (Lasix) 20 MG TABLET 0.5 TAB PO 5PM EDEMA (Reported) Gabapentin 300 MG CAPSULE 1 CAP PO TID NERVE PAIN (Reported) Metoclopramide HCl (Reglan) 10 MG TABLET 1 TAB PO 1430 GI (Reported) Mirtazapine 45 MG TABLET 1 TAB PO QPM SLEEP (Reported) Morphine Sulfate 15 MG TABLET 1 TAB PO TID PAIN (Reported) Ondansetron HCl 4 MG TABLET 1 TAB PO Q8H PRN N/V (Reported) Pantoprazole Sodium 40 MG TABLET.DR 1 TAB PO DAILY GI (Reported) Propranolol HCl 20 MG TABLET 1 TAB PO QAM MIGRAINES (Reported) Valacyclovir HCl (Valacyclovir) 500 MG TABLET 1 TAB PO DAILY HERPES (Reported ) Valacyclovir HCl (Valtrex) 1,000 MG TABLET 1 TAB PO DAILY HERPES SIMPLEX ( Reported) (Osmin Stringer MD) Past History Travel History Traveled to [place] past 21 day No Medical History Any Pertinent Medical History? 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 FH: breast cancer FH: diabetes mellitus Hx Contributory? No (Lenora Jarquin) Review of Systems Review of Systems Constitutional: Reports: no symptoms. EENTM: Reports: no symptoms. Respiratory: Reports: see HPI. Cardiovascular: Reports: no symptoms. GI: Reports: see HPI. Genitourinary: Reports: no symptoms. Musculoskeletal: Reports: no symptoms. Skin: Reports: no symptoms. Neurological/Psychological: Reports: no symptoms. Hematologic/Endocrine: Reports: no symptoms. Immunologic/Allergic: Reports: no symptoms. All Other Systems: Reviewed and Negative (Lenora Jarquin) Physical Exam Physical Exam General Appearance: well developed/nourished, no apparent distress, alert, awake Head: atraumatic, normal appearance Eyes: Bilateral: normal appearance. Ears, Nose, Throat, Mouth: hearing grossly normal Neck: normal inspection, supple, full range of motion Respiratory: no respiratory distress, corse breath sounds bilaterally Cardiovascular: regular rate/rhythm Gastrointestinal: normal bowel sounds, soft, G-tube in place, epigastric tenderness Back: normal inspection, normal range of motion Extremities: normal range of motion Neurologic/Psych: awake, alert, oriented x 3 Skin: intact, normal color, warm/dry Core Measures ACS in differential dx? No Sepsis Present: No Sepsis Focused Exam Completed? No (Lenora Jarquin) Progress Differential Diagnosis: bowel obstruction, cholecystitis, diverticulitis, gastritis, hernia, pancreatitis, PUD/GERD, SBO, c difficile Plan of Care: Orders Procedure Date/time Status Clear Liquid Diet 11/21 B Active T-HELPER/SUPPRESSOR Ref$ 11/21 0600 Active CBC WITHOUT DIFFERENTIAL 11/21 0600 Active BASIC ELECTROLYTES PLUS BUN&CR 11/21 0600 Active Isolation 11/21 0358 Active Pathway - chart 11/21 0127 Active House Staff 11/21 0127 Active Code Status 11/21 0127 Active Drains/Tubes 11/21 0121 Active Drains/Tubes 11/21 0048 Complete Pathway - chart 11/21 0007 Active Intake & Output 11/21 0005 Active VTE Mechanical Prophylaxis 11/21 UNK Active Vital Signs 11/21 UNK Complete Intake & Output 11/21 UNK Complete Activity/Ambulation 11/21 UNK Active PHARMACY COMMUNICATION FORM 11/21 UNK Active MISSING MEDICATION FORM 11/21 UNK Active Weight 07/02 2118 Complete Vital Signs 11/20 2117 Active Teach/Educate 11/20 2117 Active Pain Treatment and Response 11/20 2117 Active Nutritional Intake, Monitor 11/20 2117 Active Isolation 11/20 2117 Complete Intake & Output 11/20 2117 Active Patient Care Conference 11/20 2117 Active Activity/Ambulation 11/20 2117 Active LACTIC ACID 11/20 2033 Complete C.DIFFICILE 11/20 1957 Active Add-on Test (ER Only) 11/20 194 Active Patient Data 11/20 191 Active OXYGEN SETUP (GEN) 11/20 182 Active Saline Lock 11/20 182 Active Admit to inpatient 11/20 182 Active Vital Signs 11/20 1828 Active Activity/Ambulation 11/20 1828 Complete Code Status 11/20 1828 Complete EKG 11/20 1639 Active LACTIC ACID 11/20 1548 Complete Add-on Test (ER Only) 11/20 1432 Active Telemetry/Hoop Machine Operator 11/20 1432 Complete CULTURE,URINE 11/20 1432 Active CULTURE,STOOL 11/20 1432 Active BLOOD CULTURE 11/20 1432 Active URINALYSIS 11/20 1432 Complete EKG 11/20 1432 Active PARTIAL THROMBOPLASTIN TIME 11/20 1249 Complete PROTHROMBIN TIME 11/20 1249 Complete LACTIC ACID 11/20 1248 Complete COMPREHENSIVE METABOLIC PANEL 11/20 1248 Complete CBC WITHOUT DIFFERENTIAL 11/20 1248 Complete Intake & Output 11/20 1136 Complete Current Medications Sig/Solitario Start time Last Medication Dose Stop Time Status Admin Alendronate Sodium 70 MG QSUN 11/26 0900 AC (Fosamax) Mirtazapine 45 MG AT BEDTIME 11/21 2100 AC (Remeron) Furosemide 10 MG 5PM 11/21 1700 AC (Lasix) Cevimeline HCl 30 MG TID 11/21 899 AC (Evoxac 30 MG Capsules) Citalopram 20 MG DAILY 11/21 899 AC Hydrobromide (Celexa) Enoxaparin Sodium 40 MG DAILY 11/21 899 AC (Lovenox) Gabapentin 300 MG TID 11/21 899 AC (Neurontin) Morphine Sulfate 15 MG TID 11/21 899 AC (MSIR) Valacyclovir HCl 500 MG DAILY 11/21 899 AC (Valtrex) Ceftazidime 1,000 MG Q12H 11/21 0800 AC (Fortaz) Vancomycin HCl 250 MG Q6H 11/21 08 AC Omeprazole 40 MG DAILY AC 11/21 0700 AC 11/21 (Prilosec) 0618 Propranolol HCl 20 MG 0530 11/21 0530 AC 11/21 (Inderal 20 MG 0616 Tablet) Ondansetron HCl 4 MG Q6P PRN 11/21 0400 AC (Zofran) Non-Formulary 0 SEE ADMIN CRITERIA 11/21 0330 UNVr Medication (NON FORMULARY) Metronidazole 500 MG IQ8 11/21 0115 AC 11/21 (Flagyl) 0147 N/A 1 UNIT (No Carrier) Acetaminophen 650 MG Q6P PRN 11/21 0015 AC 11/21 (Tylenol) 0034 Acetaminophen 650 MG ONCE ONE 11/20 2229 CAN (Tylenol) 11/20 223 Laboratory Tests 11/20/17 2211: Lactic Acid 1.9 11/20/17 1752: Urinalysis LIGHT H, Urine Color YEL, Urine Clarity HAZY H, Urine pH 7.5, Ur Specific Lerna 1.010, Urine Protein TRACE H, Urine Ketones NEG, Urine Nitrite NEG, Urine Bilirubin NEG, Urine Urobilinogen 0.2, Ur Leukocyte Esterase TRACE H , Ur Microscopic SEDIMENT EXAMINED, Urine RBC 1-3, Urine WBC 5-10 H, Ur Epithelial Cells MOD H, Urine Crystals 1+ CA OX H, Urine Bacteria MOD H, Hyaline Casts 1-3 H, Urine Mucus MOD H, Urine Hemoglobin NEG, Urine Glucose NEG 11/20/17 1609: Lactic Acid 2.2 H 11/20/17 1249: Anion Gap 18 H, Estimated GFR > 60, BUN/Creatinine Ratio 31.4 H, Glucose 118 H, Lactic Acid 3.0 H, Calcium 10.4 H, Total Bilirubin 1.1, AST 30, ALT 28, Alkaline Phosphatase 125, Total Protein 8.1, Albumin 4.6, Globulin 3.5, Albumin/ Globulin Ratio 1.3, PT 12.0, INR 1.10, APTT 25, CBC w Diff NO MAN DIFF REQ, RBC 4.42, MCV 98.0, MCH 32.3 H, MCHC 33.0, RDW 15.8 H, MPV 9.2, Gran % 77.9 H, Lymphocytes % 14.9 L, Monocytes % 6.7, Eosinophils % 0.1, Basophils % 0.4, Absolute Granulocytes 9.3 H, Absolute Lymphocytes 1.8, Absolute Monocytes 0.8 H, Absolute Eosinophils 0, Absolute Basophils 0 Microbiology 11/20 2230 STOOL: Clostridium difficile Toxin A & B - RECD 11/20 1752 URINE ROUT: Urine Culture - RECD 11/20 1730 STOOL: Stool Culture - RECD 11/20 1544 BLOOD: Blood Culture - RECD 11/20 1432 BLOOD: Blood Culture - CAN Cancelled: SPECIMEN NEVER RECEIVED. REORDER IF NEEDED Patient's labs show elevated lactic acid at 3.0, anion gap 18. Patient medicated with IV fluids. CT abd/pelvis is stable. CXR is negative. Given patient's history of HIV with current abnormal labs in setting of active c diff requires hospital admission for further IV fluids, IV antiemetics, possible infectious disease consult, possible GI consult. The patient is immunocompromised. Premature discharge is medically unsafe at this time. Dr. Stringer agrees with this plan. Spoke with hospitalist, Dr. Waters, regarding this patient's admission. Diagnostic Imaging: Viewed by Me: Radiology Read, CT Scan. Discussed w/RAD: Radiology Read, CT Scan. Radiology Impression: PATIENT: CAYETANO MIKE PRESENT AGE: 67 PATIENT ACCOUNT NO: [id number] : 49 LOCATION: [facility] ORDERING PHYSICIAN: Lenora MCGEE SERVICE DATE: 11/20/17-1253 EXAM TYPE: CAT - CT ABD & PELVIS W/O IV CONTRAS EXAMINATION: CT ABDOMEN AND PELVIS WITHOUT CONTRAST CLINICAL INFORMATION: 67-year-old female with recent C. difficile infection now worsening abdominal pain with nausea and vomiting. Evaluate for colitis or bowel perforation. Assess G-tube. COMPARISON: 08/29/2017 TECHNIQUE: Multidetector volumetric imaging was performed from the superior aspect of the liver through the pubic symphysis. Sagittal and coronal reformatted images were obtained on the technologist's workstation. DLP: 234 mGy-cm FINDINGS: LUNG BASES : Centrilobular emphysema in the visualized lung bases. Bronchial oropeza are chronically thickened. Again noted are some endobronchial secretions in the left lower lobe and scattered linear, hazy opacities of atelectasis in the bases. Subtle peribronchial reticular-nodular opacities in lung bases, as well, from inflammation or infection of the small airways. No focal consolidation or pleural effusion. LIVER, GALLBLADDER, AND BILIARY TREE: Liver has normal size and contour. No focal hepatic lesion is detected on this noncontrast examination. Gallbladder is physiologically distended and without radiopaque calculi. No gallbladder wall edema or pericholecystic fluid. Common bile duct remains dilated up to 1.1 cm, unchanged compared to 05/27/2016 and 08/29/2017. PANCREAS: Unremarkable. SPLEEN: Unremarkable. ADRENAL GLANDS: Unremarkable. KIDNEYS AND URETERS: Kidneys have normal size, cortical thickness and attenuation. No nephrolithiasis, hydronephrosis or perinephric edema. BLADDER: Unremarkable. GASTROINTESTINAL TRACT: The gastrostomy tube is in satisfactory position within the proximal stomach. Bowel loops are normal in caliber. Appendix is normal. No evidence of bowel wall edema or pericolonic fat stranding. Multiple scattered diverticula of the colon without diverticulitis. No ascites or pneumoperitoneum. ABDOMINAL WALL: No acute findings. LYMPH NODES: No pathologic sized lymph nodes in the abdomen or pelvis. VASCULAR: Mild atherosclerosis of the abdominal aorta and iliac arteries without aneurysm. PELVIC VISCERA: The uterus and adnexa are grossly unremarkable. No pelvic mass or free fluid. Several phleboliths are seen in the lower pelvis. OSSEOUS STRUCTURES: Chronic multilevel degenerative disc disease of the lumbar spine -- most severe at L4-L5 as manifest by severe loss of disc space, endplate irregularity, sclerosis, osteophytosis and mild right lateral listhesis of L4 on L5. No aggressive osseous lesions. IMPRESSION: 1. Within the visualized lung bases, findings include pulmonary emphysema and chronic thickening/inflammation of bronchial oropeza. No focal consolidation or pleural effusion. Correlate for history of chronic obstructive pulmonary disease. 2. Gastrostomy tube is in satisfactory position. 3. No evidence of acute bowel obstruction or inflammation on this noncontrast examination. Multiple colonic diverticula without diverticulitis. No bowel perforation. 4. Common bile duct is chronically dilated , unchanged compared to 05/27/2016. DICTATED BY: Reynold Workman MD DATE/TIME DICTATED:11/20/171419 HOME STEREO EQUIPMENT INSTALLER:JESSI DATE/TIME TRANSCRIBED:1419 CONFIDENTIAL, DO NOT COPY WITHOUT APPROPRIATE AUTHORIZATION. < Electronically signed in Other Vendor System> SIGNED BY: Reynold Workman MD 11/20/17 1439 CXR Impression: PATIENT: CAYETANO MIKE PRESENT AGE: 67 PATIENT ACCOUNT NO: [id number] : 49 LOCATION: [facility] ORDERING PHYSICIAN: Lenora MCGEE SERVICE DATE: 11/20/17-1432 EXAM TYPE: RAD - XRY- PORTABLE CHEST XRAY EXAMINATION: CR PORTABLE CHEST CLINICAL INFORMATION: Fever/ sepsis. Rule out pneumonia. COMPARISON: CT of the chest dated 08/29/2017. Several prior chest x-rays, most recent of which is dated 05/27/2016. TECHNIQUE: Portable frontal view of the chest was obtained. FINDINGS: The cardiomediastinal silhouette is within normal limits in size. Lungs bilaterally are symmetrically hyperinflated, consistent with patient's history of emphysema. No focal consolidation, effusion or pneumothorax is seen. Faint nodular densities are seen projected over the lung bases bilaterally, consistent with nipple shadows. There is a faint small nodular density seen peripherally in the right upper lobe , corresponding to a benign nodule found to be stable on prior CT scans. The other previously described 2 to 5 mm pulmonary nodules seen on CT scan are not clearly appreciated on plain film. Diffuse osteopenia is seen. IMPRESSION: 1. No focal pneumonia. 2. Obstructive lung disease with stable benign small nodule in the right upper lobe. DICTATED BY: Marie Noble MD DATE/TIME DICTATED:1752 HOME STEREO EQUIPMENT INSTALLER:JESSI DATE/TIME TRANSCRIBED:11/20/171752 CONFIDENTIAL, DO NOT COPY WITHOUT APPROPRIATE AUTHORIZATION. <Electronically signed in Other Vendor System> SIGNED BY: Marie Noble MD 11/20/17 1802 Initial ED EKG: sinus rhythm with artifact present, nonspecific ST changes (Bianka MCGEE,Lenora Clarke) Departure Departure Disposition: STILL A PATIENT Condition: Stable Clinical Impression Primary Impression: Lactic acidosis Secondary Impressions: C. difficile diarrhea, Dehydration, Nausea vomiting and diarrhea Referrals: Bc Meza APRN (PCP/Family) Departure Forms: Customer Survey General Discharge Information Admission Note Spoke With: Goldy Waters MD Documentation of Exam: Documentation of any treatments & extenuating circumstances including Concerns Regarding Discharge (functional status, medication knowledge or non-compliance, living conditions, etc.) that warrant an admission rather than observation: (Bianka MCGEE,Lenora Clarke) PA/MEDICATION MANAGER Co-Sign Statement Statement: ED Attending supervision documentation- x I saw and evaluated the patient. I have also reviewed all the pertinent lab results and diagnostic results. I agree with the findings and the plan of care as documented in the PA's/MEDICATION MANAGER's documentation. N/V, weakness with lactic acidosis , intractable vomiting, dehydration. HIV+ [] I have reviewed the ED Record and agree with the PA's/MEDICATION MANAGER's documentation. [] Additions or exceptions (if any) to the PAs/MEDICATION MANAGER's note and plan are summarized below: [] (Siomara CARBAJAL,Osmin)
[2017-11-20 13:09] LABS: ABSOLUTE BASOPHIL COUNT 0 /CUMM (0.0-0.2); ABSOLUTE EOSINOPHIL COUNT 0 /CUMM (0.0-0.7); ABSOLUTE GRANULOCYTE CT 9.3 /CUMM (1.4-6.5); ABSOLUTE LYMPH COUNT 1.8 /CUMM (1.2-3.4); ABSOLUTE MONOCYTE COUNT 0.8 /CUMM (0.10-0.60); BASOPHIL % 0.4 % (0.0-2.0); EOSINOPHIL % 0.1 % (0-5); GRANULOCYTE % 77.9 % (42.2-75.2); HEMATOCRIT 43.4 % (37-47); MEAN CORPUSCULAR HGB 32.3 PG (27.0-31.0); MEAN PLATELET VOLUME 9.2 FL (7.4-10.4); PLATELET COUNT 263 /CUMM (130-400); RBC DISTRIBUTION WIDTH 15.8 % (11.5-14.5); RED BLOOD CELL CT 4.42 /CUMM (4.20-5.40); WHITE BLOOD CELL COUNT 11.9 /CUMM (4.8-10.8)
--- NOTE | 2017-11-20 14:39 | CT SCAN REPORT ---
EXAMINATION: CT ABDOMEN AND PELVIS WITHOUT CONTRAST CLINICAL INFORMATION: 67-year-old female with recent C. difficile infection now worsening abdominal pain with nausea and vomiting. Evaluate for colitis or bowel perforation. Assess G-tube. COMPARISON: 08/29/2017 TECHNIQUE: Multidetector volumetric imaging was performed from the superior aspect of the liver through the pubic symphysis. Sagittal and coronal reformatted images were obtained on the technologist's workstation. DLP: 234 mGy-cm FINDINGS: LUNG BASES: Centrilobular emphysema in the visualized lung bases. Bronchial oropeza are chronically thickened. Again noted are some endobronchial secretions in the left lower lobe and scattered linear, hazy opacities of atelectasis in the bases. Subtle peribronchial reticular-nodular opacities in lung bases, as well, from inflammation or infection of the small airways. No focal consolidation or pleural effusion. LIVER, GALLBLADDER, AND BILIARY TREE: Liver has normal size and contour. No focal hepatic lesion is detected on this noncontrast examination. Gallbladder is physiologically distended and without radiopaque calculi. No gallbladder wall edema or pericholecystic fluid. Common bile duct remains dilated up to 1.1 cm, unchanged compared to 05/27/2016 and 08/29/2017. PANCREAS: Unremarkable. SPLEEN: Unremarkable. ADRENAL GLANDS: Unremarkable. KIDNEYS AND URETERS: Kidneys have normal size, cortical thickness and attenuation. No nephrolithiasis, hydronephrosis or perinephric edema. BLADDER: Unremarkable. GASTROINTESTINAL TRACT: The gastrostomy tube is in satisfactory position within the proximal stomach. Bowel loops are normal in caliber. Appendix is normal. No evidence of bowel wall edema or pericolonic fat stranding. Multiple scattered diverticula of the colon without diverticulitis. No ascites or pneumoperitoneum. ABDOMINAL WALL: No acute findings. LYMPH NODES: No pathologic sized lymph nodes in the abdomen or pelvis. VASCULAR: Mild atherosclerosis of the abdominal aorta and iliac arteries without aneurysm. PELVIC VISCERA: The uterus and adnexa are grossly unremarkable. No pelvic mass or free fluid. Several phleboliths are seen in the lower pelvis. OSSEOUS STRUCTURES: Chronic multilevel degenerative disc disease of the lumbar spine -- most severe at L4-L5 as manifest by severe loss of disc space, endplate irregularity, sclerosis, osteophytosis and mild right lateral listhesis of L4 on L5. No aggressive osseous lesions. IMPRESSION: 1. Within the visualized lung bases, findings include pulmonary emphysema and chronic thickening/inflammation of bronchial oropeza. No focal consolidation or pleural effusion. Correlate for history of chronic obstructive pulmonary disease. 2. Gastrostomy tube is in satisfactory position. 3. No evidence of acute bowel obstruction or inflammation on this noncontrast examination. Multiple colonic diverticula without diverticulitis. No bowel perforation. 4. Common bile duct is chronically dilated, unchanged compared to 05/27/2016.
[2017-11-20 14:50] LABS: PTT 25 SEC (25-37)
--- NOTE | 2017-11-20 18:02 | RADIOLOGY REPORT ---
EXAMINATION: CR PORTABLE CHEST CLINICAL INFORMATION: Fever/sepsis. Rule out pneumonia. COMPARISON: CT of the chest dated 08/29/2017. Several prior chest x-rays, most recent of which is dated 05/27/2016. TECHNIQUE: Portable frontal view of the chest was obtained. FINDINGS: The cardiomediastinal silhouette is within normal limits in size. Lungs bilaterally are symmetrically hyperinflated, consistent with patient's history of emphysema. No focal consolidation, effusion or pneumothorax is seen. Faint nodular densities are seen projected over the lung bases bilaterally, consistent with nipple shadows. There is a faint small nodular density seen peripherally in the right upper lobe, corresponding to a benign nodule found to be stable on prior CT scans. The other previously described 2 to 5 mm pulmonary nodules seen on CT scan are not clearly appreciated on plain film. Diffuse osteopenia is seen. IMPRESSION: 1. No focal pneumonia. 2. Obstructive lung disease with stable benign small nodule in the right upper lobe.
--- NOTE | 2017-11-20 20:28 | History & Physical ---
Sammy Valente 11/20/172026: General Information and HPI MD Statement: I have seen and personally examined CAYETANO MIKE and documented this H&P. The patient is a 67 year old F who presented with a patient stated chief complaint of [diarrhea]. Source of Information: patient Exam Limitations: no limitations History of Present Illness: Pt is a 65 yo F with a PMHx of HIV (on Genovya), AML (in remission s/p chemotherapy 2007), HTN, COPD (on home oxygen prn), chronic back pain, and migraines. She presents with diarrhea and vomiting. History was obtained from patient's daughter. As per daughter, the patient has had many bouts of diarrhea for the past year. During August she was admitted to [facility] for diarrhea and was discharged home without antibiotics. She was admitted to [facility] again on November 11 and was found to be positive for c. difficile. [facility] treated her this time with vancomycin which seemed to improve her symptoms for the short term. Patient was discharged again but this time, but within one week symptoms returned. Daughter reports 8-10 bowel movements per day with a consistency of mucous and water. Patient denies any blood in her stool. This morning (November 20) patient had multiple espisodes of vomitting (most likely billous to the greenish colorr). Patient is on tube feeds (G tube) because of hx of throat cancer with reconstruction last summer. Patient is also complaining of headache and believes she hasnt had one this severe in decades. Patients`s last CD4 was 200. Currently patient denies fever or chills. 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 FH: breast cancer FH: diabetes mellitus Psychosocial History Who Do You Live With? child (daughter) Services at Home: Nursing ETOH Use: denies use Illicit Drug Use: denies illicit drug use Functional Ability ADLs Independent: dressing, eating, toileting, bathing. Ambulation: walker Review of Systems Review of Systems Constitutional: Reports: see HPI. EENTM: Reports: no symptoms. Cardiovascular: Reports: no symptoms. Respiratory: Reports: cough. GI: Reports: abdominal pain, diarrhea, changes in stool, vomiting. Genitourinary: Reports: no symptoms. Musculoskeletal: Reports: no symptoms. Skin: Reports: no symptoms. Neurological/Psychological: Reports: headache. Hematologic/Endocrine: Reports: no symptoms. Immunologic/Allergic: Reports: no symptoms. All Other Systems: Reviewed and Negative Exam & Diagnostic Data Last 24 Hrs of Vital Signs/I&O Vital Signs Date Time Temp Pulse Resp B/P B/P Pulse O2 O2 Flow FiO2 Mean Ox Delivery Rate 11/21 0642 97.3 63 20 134/75 100 Room Air 11/21 0616 63 134/75 11/20 2218 97.5 50 18 140/60 100 Room Air / 1940 98.6 56 24 151/68 98 Room Air / 1829 98.4 55 / 1722 46 18 180/79 100 Room Air / 1505 96.6 52 20 175/73 100 Room Air / 1502 97.7 / 1141 99 / 1131 97.7 47 18 164/77 100 Room Air Intake & Output 11/21 1600 11/21 0800 11/21 0000 Intake Total 600 2060 Output Total 500 400 Balance 100 1660 Intake, IV 500 2000 Intake, Oral 0 Intake, Tube 100 60 Irrigant Number 2 Bowel Movements Output, Urine 500 400 Patient 104 lb Weight Weight Reported by Patient Measurement Method Physical Exam General Appearance Alert, Oriented X3, Cooperative Skin No Rashes HEENT Atraumatic, PERRLA, EOMI Neck Supple Cardiovascular Regular Rate, Normal S1, Normal S2 Lungs Clear to Auscultation Abdomen Normal Bowel Sounds, Soft, Tenderness Neurological Normal Speech Extremities No Edema Last 24 Hrs of Labs/Guy: Laboratory Tests 11/21/17 0854: Sodium Pending, Potassium Pending, Chloride Pending, Carbon Dioxide Pending, Anion Gap Pending, BUN Pending, Creatinine Pending, BUN/Creatinine Ratio Pending , Total Abs Lymphocytes Pending, Lymphocyte Subset Cmmnt Pending, Absolute CD3 Count Pending, % CD3 Mature T-Lymphs Pending, % CD4 [place] Pending, Absolute CD4 Count Pending, T-Help/Suppress Ratio Pending, % CD8 Suppressor Pending, Absolute CD8 Count Pending, HIV 1&2 RNA (PCR) Pending 11/21/17 0600: Total Abs Lymphocytes Cancelled, Lymphocyte Subset Cmmnt Cancelled, Absolute CD3 Count Cancelled, % CD3 Mature T-Lymphs Cancelled, % CD4 [place] Cancelled, Absolute CD4 Count Cancelled, T-Help/Suppress Ratio Cancelled, % CD8 Suppressor Cancelled, Absolute CD8 Count Cancelled, HIV 1&2 RNA (PCR) Cancelled 11/20/17 2211: Lactic Acid 1.9 11/20/17 1752: Urinalysis LIGHT H, Urine Color YEL, Urine Clarity HAZY H, Urine pH 7.5, Ur Specific [place] 1.010, Urine Protein TRACE H, Urine Ketones NEG, Urine Nitrite NEG, Urine Bilirubin NEG, Urine Urobilinogen 0.2, Ur Leukocyte Esterase TRACE H , Ur Microscopic SEDIMENT EXAMINED, Urine RBC 1-3, Urine WBC 5-10 H, Ur Epithelial Cells MOD H, Urine Crystals 1+ CA OX H, Urine Bacteria MOD H, Hyaline Casts 1-3 H, Urine Mucus MOD H, Urine Hemoglobin NEG, Urine Glucose NEG 11/20/17 1609: Lactic Acid 2.2 H 11/20/17 1249: Anion Gap 18 H, Estimated GFR > 60, BUN/Creatinine Ratio 31.4 H, Glucose 118 H, Lactic Acid 3.0 H, Calcium 10.4 H, Total Bilirubin 1.1, AST 30, ALT 28, Alkaline Phosphatase 125, Total Protein 8.1, Albumin 4.6, Globulin 3.5, Albumin/ Globulin Ratio 1.3, PT 12.0, INR 1.10, APTT 25, CBC w Diff NO MAN DIFF REQ, RBC 4.42, MCV 98.0, MCH 32.3 H, MCHC 33.0, RDW 15.8 H, MPV 9.2, Gran % 77.9 H, Lymphocytes % 14.9 L, Monocytes % 6.7, Eosinophils % 0.1, Basophils % 0.4, Absolute Granulocytes 9.3 H, Absolute Lymphocytes 1.8, Absolute Monocytes 0.8 H, Absolute Eosinophils 0, Absolute Basophils 0 Microbiology 11/20 2230 STOOL: Clostridium difficile Toxin A & B - RECD 11/20 1752 URINE ROUT: Urine Culture - RECD 11/20 1730 STOOL: Stool Culture - RECD 11/20 1544 BLOOD: Blood Culture - RECD 11/20 1432 BLOOD: Blood Culture - CAN Cancelled: SPECIMEN NEVER RECEIVED. REORDER IF NEEDED Assessment/Plan Assessment: The patient is 67-year-old female with past medical history of HIV on Genvoya, anxiety, depression, AML status post chemotherapy 2008 currently in remission, hypertension, migraine, thyroid cancer status post thyroidectomy, chronic back pain on opiates. The patient was recently treated for C. difficile colitis and discharged from [facility] on 11/11/17. The patient is presenting with complaint of abdominal pain, nausea, bilious vomiting and profuse diarrhea ongoing for past 3 days. Vitals on presentation afebrile, blood pressure 164/77 Labs on admission were significant for leukocytosis of 11.9, hyponatremia of 148 , hyperchloremia 110 anion gap 18, BUN 22, bicarb 19, lactic acidosis of 3, hypercalcemia 10.4 Imaging findings dictated above The patient is being admitted to general medicine floor for treatment and evaluation of following conditions: #Infectious diarrhea with history of C. difficile colitis in the past Patient is afebrile though presenting with a white count and has recent history of C. difficile colitis treated with antibiotics now presenting with profuse diarrhea and abdominal pain, most likely is infectious. lactic acidosis and WBC count point to infectious pathology. Appears to be septic however is not SIRS positive. -Monitor vitals closely -Low threshold for ICU transfer in setting of hypotension or change in mentation -Monitor fever and WBC curve -Blood cultures 2 -Urine cultures -Sputum culture -Stool culture -Stool ova and parasite -C. difficile antigen and PCR -CT scan head, abdomen pelvis with contrast -IV hydration -Symptomatic control of nausea Zofran as needed -Tylenol as needed for fever -Broad spectrum antibiotics p.o. vancomycin, IV Flagyl, ceftazidime -ID consult in am #Anion gap metabolic acidosis Most likely secondary to lactic acidosis due to infectious pathology. Delta delta gap is 1.5. pointing to pure anion gap metabolic acidosis. -Trend Lactate -IV hydration #High BUN,hyperchloremia, hypernatremia Most likely secondary to dehydration due to diarrhea -IV hydration #History of HIV -Obtain CD4 count, T-cell count, viral load -ID consult -Continue HIV regimen DNR/DNI DVT prophylaxis with Alps and Lovenox/NPO As Ranked By This Provider Problem List: 1. Vomiting 2. Diarrhea 3. C. difficile diarrhea 4. Nausea vomiting and diarrhea 5. Dehydration 6. Lactic acidosis Core Measures/Misc (02/05) Acute Coronary Syndrome ACS Diagnosis: No Congestive Heart Failure Congestive Heart Failure Diagnosis No Cerebrovascular Accident CVA/TIA Diagnosis: No VTE (View Protocol) VTE Risk Factors Age>40 No Mechanical VTE Prophylaxis d/t N/A MechProphylax Ordered No VTE Pharm Prophylaxis d/t NA PharmProphylax ordered Sepsis (View protocol) Sepsis Present: Yes If YES complete Sepsis Event Note If YES complete Sepsis Event Note Goldy Waters MD 11/20/17 2218: Core Measures/Misc (02/05) Sepsis (View protocol) If YES complete Sepsis Event Note If YES complete Sepsis Event Note Attending MD Review Statement Attending Statement Attending MD Statement: examined this patient, discuss w/resident/PA/PACKAGE CRIMPER, agreed w/resident/PA/PACKAGE CRIMPER, reviewed EMR data (avail) Attending Assessment/Plan: 67F PMH HIV on Genvoya, COPD, depression, anxiety, AML s/p chemo (2007) in remission, HTN, chronic back pain on opiates, migraine, recent thyroid cancer s/ p thyroidectomy and G-tube placement, recent C.diff colitis discharged from [facility] on 11/11/17 presenting with 3 days of progressive abdominal pain, profuse diarrhea, intractable nausea and bilious vomiting, and diffuse headache. Patient was still weak and having small loose stools upon discharge from [facility], and has worsened since. She has a history of migraines but has not had a headache this severe in decades. She has been unable to tolerate PO for 2 days and has been consistently dry heaving, vomiting green fluid in front of me. Abdominal pain is diffuse but abdomen is not acute on exam, with no rebound or guarding. Her CD4 was last checked last year and was 200. She is compliant with medications. Labs are significant for WBC 11.9 without bandemia, dehydrated by labs, normal renal function, lactate 3.0 improved to 2.3 with IV fluids, CXR negative, normal UA, non-contrast CT negative for bleed. 1. Sepsis 2. HIV 3. Intractable diffuse headache 4. History of C.diff colitis 5. Diarrhea of presumed infectious origin 6. Intractable nausea and vomiting 7. Lactic acidosis Plan - Admit to general medicine, if hypotensive or change in clinical status, low threshold for ICU transfer - Start PO Vancomycin and IV Flagyl - Start Ceftazidime - Blood, urine, sputum, stool cultures, C.diff antigen - CD4 count, T-cell count, HIV viral load - Infectious disease consult - CT head, abdomen/pelvis with contrast given HIV history - IV hydration - Continue home medications - PRN Zofran and Phenergen for nausea - Tylenol for fever/pain - DVT PPx Keiry CARBAJAL,Winifred 11/21/17 0329: General Information and HPI Allergies/Medications Home Med list Acetaminophen 500 MG TABLET 1 TAB PO TID PRN PAIN (Reported) Alendronate Sodium 70 MG TABLET 1 TAB PO QSUN OSTEOPOROSIS (Reported) in the morning, at least 30 minutes before the first food, beverage, or medication of the day Celecoxib (Celebrex) 100 MG CAPSULE 1 CAP PO BID ARTHRITIS - LOWER BACK ( Reported) Cevimeline HCl 30 MG CAPSULE 1 CAP PO TID SALIVA (Reported) Citalopram Hydrobromide (Celexa) 20 MG TABLET 1 TAB PO DAILY MENTAL HEALTH ( Reported) Elviteg/Samia/Emtric/Tenofo Ala (Genvoya Tablet) 150 MG-150 MG-200 MG-10 MG TABLET 1 TAB PO DAILY ANTIVIRAL (Reported) Furosemide (Lasix) 20 MG TABLET 0.5 TAB PO 5PM EDEMA (Reported) Gabapentin 300 MG CAPSULE 1 CAP PO TID NERVE PAIN (Reported) Metoclopramide HCl (Reglan) 10 MG TABLET 1 TAB PO 1430 GI (Reported) Mirtazapine 45 MG TABLET 1 TAB PO QPM SLEEP (Reported) Morphine Sulfate 15 MG TABLET 1 TAB PO TID PAIN (Reported) Ondansetron HCl 4 MG TABLET 1 TAB PO Q8H PRN N/V (Reported) Pantoprazole Sodium 40 MG TABLET.DR 1 TAB PO DAILY GI (Reported) Propranolol HCl 20 MG TABLET 1 TAB PO QAM MIGRAINES (Reported) Valacyclovir HCl (Valacyclovir) 500 MG TABLET 1 TAB PO DAILY HERPES (Reported ) Valacyclovir HCl (Valtrex) 1,000 MG TABLET 1 TAB PO DAILY HERPES SIMPLEX ( Reported) Core Measures/Misc (02/05) Sepsis (View protocol) If YES complete Sepsis Event Note If YES complete Sepsis Event Note Resident Review Statement Resident Statement: examined this patient, discussed with internal combustion engine subassembler, agreed with internal combustion engine subassembler Other Findings: Ms. Mike is a 65 y/o F with PMHx of HIV on Genvoya , AML in remission s/p chemotherapy (2007), HTN, COPD(on home oxygen as needed), chronic back pain and migraines presents with vomiting and diarrhea. Patient's daughter at bedside, who provided most of the history. She mentioned that the patient has had chronic diarrhea going on and off since last year. She was admitted at [facility] in August for diarrhea but was discharged home without any antibiotics and was later found to have C. difficile. The diarrhea improved somewhat after discharge but she continued to have frequent loose bowel movements. She was admitted to [facility] again on 11/11, and was found to be C. difficile positive and was sent home on vancomycin. Per the daughter her diarrhea slowed down last week but then worsened again. Reports 8-10 bowel movements per day which are mucousy and very watery. Patient is also incontinent and unable to control her bowel movements. Denies any blood in the stools. This morning patient started to have abdominal pain and had multiple episodes of vomiting. The vomitus is green in color, but denies any blood in the vomitus. Also reports severe headaches. Patient is on tube feeds because of history of throat cancer status post reconstruction surgery in 2017, but has not had any tube feedings since yesterday. Denies any fever or chills. Endorses increased urinary frequency but denies any pain or burning with urination. Daughter also mentions a new cough since , without any phlegm production and noticed wheezing today. She also mentions severe headache starting this morning, though has a history of migraine headaches that haven't had a migraine attack in years and has never had a headache this severe in the past. Patient follows up with Dr. Nora Dukes for HIV, last visit was 4 months ago. Last CD4 count was 200(low compared to her previous CD4 counts which were mostly in 900s), patient is due for repeat blood work this month. Vitals at the time of admission were MAXIMUM TEMPERATURE of 97.7, heart rate 47, respiratory rate 18, blood pressure 164/77 and O2 sats 100% on room air. General: Comfortable of 11.9, lymphocytes 0.9, H&H 18.3/43.4, platelets 263, sodium 148, potassium 4.9, BP 1/pertinent due to/0.7, lactic acid 3, and an 18 and normal LFTs. UA showed trace leukocyte esterase, WBCs 5-10, moderate bacteria and moderate epithelial cells. CT chest and abdomen with and without contrast was obtained showing right upper lobe nodule concerning for neoplasm, and was negative for any acute abdominal pathology. CT head with and without contrast was also negative for any acute intracranial pathology. Chest x-ray was negative for any acute infectious pathology. Problem List; 1. Recent C. Diff with continued diarrhea likely infectious 2. Bilious Vomiting 3. Lactic Acidosis 4. Severe headache 5. Hx of HIV - Admit the Patient to gen Med floor - Start on broad spectrum antibiotics i.e, vancomycin, ceftaz and IV Flagyl. - Zofran and Phenergan as needed for nausea/vomiting. Avoid Reglan diarrhea. - Lactic acid basis resolved with IV fluids. - Follow-up blood cultures, urine culture and stool cultures. - Follow-up C. difficile. - We'll obtain CD4 count, T-cell count and viral load. - ID consult in a.m. - Continue her home medications. DVT prophylaxis; Alps and subcutaneous Lovenox Patient is full code
--- NOTE | 2017-11-20 20:39 | CT SCAN REPORT ---
EXAMINATION: CT HEAD WITHOUT AND WITH CONTRAST CLINICAL INFORMATION: Thunderclap headache. Vomiting. COMPARISON: Head CT dated 09/02/2016. TECHNIQUE: Contiguous axial imaging was performed from the skull base to vertex before and after the administration of 95 mL of Optiray 320 intravenous contrast. DLP: 756.14 mGy-cm FINDINGS: There is no evidence of acute intracranial hemorrhage or territorial infarction. No abnormal mass effect or midline shift is seen. Ambriz to white matter differentiation is well preserved. No extra-axial fluid collections are identified. There is no abnormal enhancement. There is no evidence of hydrocephalus. Nonspecific mild bifrontal low density changes are again seen, more so on the left side. Generalized parenchymal volume loss is stable. The osseous structures and soft tissues are normal. The mastoid air cells and visualized portions of the paranasal sinuses are well aerated. IMPRESSION: No acute intracranial pathology. Stable parenchymal volume loss and nonspecific low-density white matter changes. No abnormal enhancement.
[2017-11-20 22:18] VITALS: BP 140/60
--- NOTE | 2017-11-20 22:23 | Admission Certification ---
Admission Certification Certification Statement - As attending physician, I certify that at the time of - admission, based on clinical presentation, severity of - symptoms, need for further diagnostic testing and - therapeutic interventions, and risk of adverse outcomes - without in-hospital treatment, in my clinical assessment, - this patient requires an acute hospital stay for a minimum - of two nights or longer. I have also considered psychsocial - factors such as support system, advanced age, financial - issues, cognitive issues, and failed out-patient treatments, - past re-admission history, safety of patient, and lack of - compliance as applicable. Specific rationale supporting this admission is: Sepsis
--- NOTE | 2017-11-21 00:37 | CT SCAN REPORT ---
EXAMINATION: CT CHEST, ABDOMEN AND PELVIS WITH CONTRAST CLINICAL INFORMATION: Septic. Bibasilar abnormal chest sounds. G-tube. Recent C. difficile. Abdominal pain. History of HIV with thunder clap headaches. History of throat cancer. COMPARISON: CT chest August 29, 2017. CT abdomen pelvis November 20, 2017. TECHNIQUE: Multidetector volumetric CT imaging of the chest, abdomen and pelvis was obtained after the administration of 90 mL of intravenous Optiray 320 without immediate adverse reactions. Coronal and sagittal reformatted images were performed at the CT scanner. DLP: 326.16 mGy-cm. FINDINGS: CT CHEST: Lungs: There is marked sotelo emphysematous changes of lung. Stable linear scarring at lung bases. There is no acute infiltrate. There are lung nodules. Largest nodules in the right upper lobe peripherally axial image 172 (5). This nodules in the subpleural lung now measuring 0.8 cm. This has increased in size since the prior CT study of August 29, 2017. This is therefore suspicious. Consider interventional radiology consult to assess for percutaneous biopsy. The other scattered bilateral small lung nodules previously noted have not changed. 1. 5 mm pleural-based nodule right lower lobe series 5, image 243. 2. 4 mm perivascular nodule right middle lobe series 5 image 292. Mediastinum: No bulky lymphadenopathy. Small shotty lymph nodes in the mediastinum stable since prior study. Pleura: There is no pleural effusion. No pleural mass or thickening. Axilla: No lymphadenopathy. CT ABDOMEN AND PELVIS: LIVER, GALLBLADDER, AND BILIARY TREE: The liver is normal in size, shape, and attenuation. No focal hepatic lesion or biliary ductal dilatation is present. The gallbladder is distended. No calcified gallstone. Extrahepatic CBD is dilated to a diameter of 1 cm. No calcified stone seen in the bile ducts. Is no change in appearance of the gallbladder or the bile duct dilatation since prior CAT scan August 29, 2017. PANCREAS: No acute change of the pancreas. No mass. No pancreatic duct dilatation. SPLEEN: Spleen normal in size and contour. No focal lesion. ADRENAL GLANDS: Adrenal glands are normal in size. No focal mass. KIDNEYS AND URETERS: The kidneys are normal in size, shape, and attenuation. No hydronephrosis, hydroureter, or calculi seen. No perinephric stranding. BLADDER: Unremarkable. GASTROINTESTINAL TRACT: There is diverticulosis of colon. Scattered diverticula throughout the colon. No diverticulitis. No acute change of the bowel wall. No bowel obstruction. Small bowel loops are normal. Percutaneous gastrotomy tube in place. MESENTERY: No focal inflammation. No free fluid. No free air. ABDOMINAL WALL: No significant hernia is appreciated. LYMPH NODES: Normal. VASCULAR: There is diffuse atherosclerotic vascular calcifications of the abdomen. Normal enhancement of the major branch vessels of aorta. PELVIC VISCERA: Unremarkable. OSSEOUS STRUCTURES: Degenerative spondylosis of spine. Multilevel disc height narrowing and endplate spurring and facet joint arthrosis. Degenerative change most significant at the lower lumbar spine L4-L5 and L5-S1. IMPRESSION: 1. Enlarging nodule in the right upper lobe. This is therefore suspicious for neoplasm. Consider interventional consult to assess for percutaneous biopsy. 2. Marked emphysematous changes of lung. 3. No acute abnormality of the abdomen or the pelvis. The gallbladder is distended and the extra hepatic CBD is dilated to 1 cm but this is similar to the CAT scan of August 29, 2017.
[2017-11-21] MEDS ORDERED: VALACYCLOVIR500 M1 PO (03:18)
[2017-11-21] MEDS ORDERED: LASIX20 M1 PO (03:25)
[2017-11-21 06:42] VITALS: BP 134/75
--- NOTE | 2017-11-21 07:44 | PN- Housestaff ---
Oriana Price Osei Shahram 11/21/17 0744: Subjective Follow-up For: 2. HIV 3. Intractable diffuse headache 4. History of C.diff colitis 5. Diarrhea of presumed infectious origin 6. Intractable nausea and vomiting 7. Lactic acidosis Subjective: Patient had vomited x 2 w/ 2 BMS loose stool, and a lot of N/Dry heaving. Currently resting on bed without acute distress or specific complaint. Review of Systems Constitutional: Reports: see HPI. Objective Last 24 Hrs of Vital Signs/I&O Vital Signs Date Time Temp Pulse Resp B/P B/P Pulse O2 O2 Flow FiO2 Mean Ox Delivery Rate 11/21 0642 97.3 63 20 134/75 100 Room Air 11/21 0616 63 134/75 / 2218 97.5 50 18 140/60 100 Room Air 11/20 1940 98.6 56 24 151/68 98 Room Air 11/20 1829 98.4 55 /02 1722 46 18 180/79 100 Room Air 11/20 1505 96.6 52 20 175/73 100 Room Air 11/20 1502 97.7 / 1141 99 / 1131 97.7 47 18 164/77 100 Room Air Intake & Output 11/21 0800 11/21 0000 02 1600 Intake Total 600 2060 0 Output Total 500 400 Balance 100 1660 0 Intake, IV 500 2000 Intake, Oral 0 0 Intake, Tube 100 60 Irrigant Number 2 Bowel Movements Output, Urine 500 400 Patient 47.174 kg 49.895 kg Weight Weight Reported by Patient Reported by Patient Measurement Method Physical Exam General Appearance: Alert, Oriented X3, Cooperative, No Acute Distress Current Medications: Current Medications Sig/Solitario Start time Last Medication Dose Route Stop Time Status Admin Acetaminophen 650 MG Q6P PRN 11/21 0015 AC 11/21 PO 0034 Acetaminophen 650 MG ONCE ONE 11/20 2230 CAN PO 11/20 2231 Acetaminophen 1,000 MG ONCE ONE 11/20 1400 DC 11/20 N/A 1 UNIT IV 11/20 1414 1502 Acetaminophen 0 .STK-MED ONE 11/20 1353 DC IV Acetaminophen/ 1 TAB ONCE ONE 11/20 2230 DC 11/20 Butalbital/Caffeine PO 11/20 2231 2246 Alendronate Sodium 70 MG QSUN 11/26 0900 AC PO Ceftazidime 1,000 MG Q12H 11/21 0800 AC IV Ceftazidime 1,000 MG ONCE ONE 11/21 1999 DC 11/20 IV 11/20 Cevimeline HCl 30 MG TID 11/21 0900 AC PO Citalopram 20 MG DAILY 11/21 0900 AC Hydrobromide PO Dextrose/Water 1,000 ML Q13H 11/21 0745 AC IV Enoxaparin Sodium 40 MG DAILY 11/21 0900 AC SC Furosemide 10 MG 5PM 11/21 1700 AC PO Gabapentin 300 MG TID 11/21 0900 AC PO Ketorolac 0 .STK-MED ONE 11/20 1954 DC Tromethamine .ROUTE Ketorolac 30 MG ONCE ONE 11/20 194 DC 11/20 Tromethamine IV 11/20 194 195 Metoclopramide HCl 0 .STK-MED ONE 11/20 1821 DC .ROUTE Metoclopramide HCl 10 MG ONCE ONE 11/20 1745 DC 11/20 IV 11/20 1746 1840 Metronidazole 500 MG IQ8 11/21 0115 AC 11/21 N/A 1 UNIT IV 0147 Metronidazole 500 MG ONCE ONE 11/21 1999 DC N/A 1 UNIT IV 11/20 205 Mirtazapine 45 MG AT BEDTIME 11/21 2100 AC PO Morphine Sulfate 15 MG TID 11/21 0900 AC PO Non-Formulary 0 SEE ADMIN CRITERIA 11/21 0330 UNVr Medication ANY Omeprazole 40 MG DAILY AC 11/21 0700 AC 11/21 PO 0618 Ondansetron HCl 4 MG Q6P PRN 11/21 0400 AC IV Ondansetron HCl 4 MG ONCE ONE 11/21 0300 DC 11/21 IV 11/21 0301 0306 Ondansetron HCl 0 .STK-MED ONE 11/20 1605 DC .ROUTE Ondansetron HCl 0 .STK-MED ONE 11/20 1344 DC .ROUTE Ondansetron HCl 4 MG ONCE ONE 11/20 1300 DC 11/20 IV 11/20 1301 1502 Promethazine HCl 25 MG ONCE ONE 11/21 0515 DC 11/21 IV 11/21 0516 0521 Promethazine HCl 25 MG ONCE ONE 11/21 0015 DC 11/21 IV 11/21 0016 0038 Promethazine HCl 25 MG ONCE ONE 11/20 1945 DC 11/20 IV 11/20 1946 2035 Propranolol HCl 20 MG QAM 11/21 0900 DC PO Propranolol HCl 20 MG 0530 11/21 0530 AC 11/21 PO 0616 Sodium Chloride 1,496.85 ML ONCE 11/20 1430 DC IV 11/20 1700 Sodium Chloride 1,000 ML BOLUS ONE 11/20 1300 DC 11/20 IV 11/20 1359 1628 Valacyclovir HCl 500 MG DAILY 11/21 09 AC PO Vancomycin HCl 250 MG Q6H 11/21 0800 AC PO Vancomycin HCl 250 MG Q6 11/21 0106 DC 11/21 PO 0147 Last 24 Hrs of Lab/Guy Results Last 24 Hrs of Labs/Mics: Laboratory Tests 11/20/17 2211: Lactic Acid 1.9 11/20/17 1752: Urinalysis LIGHT H, Urine Color YEL, Urine Clarity HAZY H, Urine pH 7.5, Ur Specific [place] 1.010, Urine Protein TRACE H, Urine Ketones NEG, Urine Nitrite NEG, Urine Bilirubin NEG, Urine Urobilinogen 0.2, Ur Leukocyte Esterase TRACE H , Ur Microscopic SEDIMENT EXAMINED, Urine RBC 1-3, Urine WBC 5-10 H, Ur Epithelial Cells MOD H, Urine Crystals 1+ CA OX H, Urine Bacteria MOD H, Hyaline Casts 1-3 H, Urine Mucus MOD H, Urine Hemoglobin NEG, Urine Glucose NEG 11/20/17 1609: Lactic Acid 2.2 H 11/20/17 1249: Anion Gap 18 H, Estimated GFR > 60, BUN/Creatinine Ratio 31.4 H, Glucose 118 H, Lactic Acid 3.0 H, Calcium 10.4 H, Total Bilirubin 1.1, AST 30, ALT 28, Alkaline Phosphatase 125, Total Protein 8.1, Albumin 4.6, Globulin 3.5, Albumin/ Globulin Ratio 1.3, PT 12.0, INR 1.10, APTT 25, CBC w Diff NO MAN DIFF REQ, RBC 4.42, MCV 98.0, MCH 32.3 H, MCHC 33.0, RDW 15.8 H, MPV 9.2, Gran % 77.9 H, Lymphocytes % 14.9 L, Monocytes % 6.7, Eosinophils % 0.1, Basophils % 0.4, Absolute Granulocytes 9.3 H, Absolute Lymphocytes 1.8, Absolute Monocytes 0.8 H, Absolute Eosinophils 0, Absolute Basophils 0 Microbiology 11/20 2230 STOOL: Clostridium difficile Toxin A & B - RECD 11/20 1752 URINE ROUT: Urine Culture - RECD 11/20 1730 STOOL: Stool Culture - RECD 11/20 1544 BLOOD: Blood Culture - RECD 11/20 1432 BLOOD: Blood Culture - CAN Cancelled: SPECIMEN NEVER RECEIVED. REORDER IF NEEDED Assessment/Plan Assessment: Ms. Camilo is a 65 y/o F with PMHx of HIV on Genvoya , AML in remission s/p chemotherapy (2007), HTN, COPD(on home oxygen as needed), chronic back pain and migraines presents with vomiting and diarrhea. Patient's daughter at bedside, who provided most of the history. She mentioned that the patient has had chronic diarrhea going on and off since last year. She was admitted at [facility] in August for diarrhea but was discharged home without any antibiotics and was later found to have C. difficile. The diarrhea improved somewhat after discharge but she continued to have frequent loose bowel movements. She was admitted to [facility] again on 11/11, and was found to be C. difficile positive and was sent home on vancomycin. Per the daughter her diarrhea slowed down last week but then worsened again. Reports 8-10 bowel movements per day which are mucousy and very watery. Patient is also incontinent and unable to control her bowel movements. Denies any blood in the stools. This morning patient started to have abdominal pain and had multiple episodes of vomiting. The vomitus is green in color, but denies any blood in the vomitus. Also reports severe headaches. Patient is on tube feeds because of history of throat cancer status post reconstruction surgery in 2016, but has not had any tube feedings since yesterday. Denies any fever or chills. Endorses increased urinary frequency but denies any pain or burning with urination. Daughter also mentions a new cough since , without any phlegm production and noticed wheezing today. She also mentions severe headache starting this morning, though has a history of migraine headaches that haven't had a migraine attack in years and has never had a headache this severe in the past. Patient follows up with Dr. Nora Dukes for HIV, last visit was 4 months ago. Last CD4 count was 200(low compared to her previous CD4 counts which were mostly in 900s), patient is due for repeat blood work this month. Vitals at the time of admission were MAXIMUM TEMPERATURE of 97.7, heart rate 47, respiratory rate 18, blood pressure 164/77 and O2 sats 100% on room air. General: Comfortable of 11.9, lymphocytes 0.9, H&H 18.3/43.4, platelets 263, sodium 148, potassium 4.9, BP 1/pertinent due to/0.7, lactic acid 3, and an 18 and normal LFTs. UA showed trace leukocyte esterase, WBCs 5-10, moderate bacteria and moderate epithelial cells. CT chest and abdomen with and without contrast was obtained showing right upper lobe nodule concerning for neoplasm, and was negative for any acute abdominal pathology. CT head with and without contrast was also negative for any acute intracranial pathology. Chest x-ray was negative for any acute infectious pathology. Problem List; #Intractable nausea/vomiting/diarrhea associated w/ HIV #Lactic acidosis 2/2 dehydration #Hypokalemia 2/2 diarrhea #HIV under Genvoya #Intractable diffuse headache #History of C.diff colitis #Diarrhea of presumed infectious origin - Start on broad spectrum antibiotics i.e, vancomycin, ceftaz and IV Flagyl. - Pending ID consult. - Zofran and Phenergan as needed for nausea/vomiting. Avoid Reglan diarrhea. - Lactic acid basis resolved with IV fluids. - Follow-up blood cultures, urine culture and stool cultures. - Follow-up C. difficile. - We'll obtain CD4 count, T-cell count and viral load. - ID consult in a.m. - Continue her home medications. DVT prophylaxis; Alps and subcutaneous Lovenox Patient is full code Problem List: 1. Nausea vomiting and diarrhea 2. Dehydration 3. 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 Hemodynamically stable. C/o abdominal pain diffuse, Frequent loose stools , c/o nausea. Patient admitted for diarrhea with [facility] c [facility]. Patient on broad spectrum antibiotics PO vancomycin+ iv flagyl, iv ceftazdime. ID consult pending. hypernatremia 2/2 IVVD, follow Na, c/w IVF fluids. Follow labs and clinically. Replete electrolytes as necessary, Avoid PPIs. Consider GI consult if no improvement. provide supportive care..gi/dvt prophylaxis
[2017-11-21 10:23] VITALS: BP 130/64
--- NOTE | 2017-11-21 13:44 | Cons- Infect Disease ---
General Information and HPI Consulting Request Date of Consult: 11/21/17 Requested By: Jay Barbosa MD Reason for Consult: Nausea, vomiting and diarrhea Source of Information: patient, family, old records Exam Limitations: unable to give history, physical impairment History of Present Illness: This is a 67-year-old [place] woman with AIDS, followed in [place] by Dr. Arjun Gonzalez and maintained on Genovya and Valacyclovir prophylaxis, with her last CD4 count 315 and with an undetectable viral load, AML treated 10 years prior to admission and currently in remission, throat cancer, status post surgery one year prior to admission, with a G-tube in place for feedings, hypertension, COPD, on home oxygen prn, chronic back pain and migraines, with chronic diarrhea on and off over the past year, hospitalized for this 2 weeks prior to admission at [place], where she was found to be positive for C. difficile (which was apparently also positive on a previous admission 2 months earlier but not treated) and discharged on p.o. Vancomycin, with plans for a 2 week course, followed by a taper, admitted on November 20 after presenting to the emergency room with persistent diarrhea and abdominal discomfort since discharge from [place] and the more acute onset of nausea and vomiting, with chills and headaches, but no fevers or sweats, and with mild shortness of breath, but with no chest pain or cough. On admission she was afebrile. Laboratory data revealed a white blood cell count of 12,000, BUN/creatinine 22 and 0.7, sodium 148, lactic acid 3.0, with normal liver enzymes, coags normal. Urinalysis 1-3 RBC/5-10 WBCs. Chest x -ray revealed a small nodule in the right upper lobe with no focal pneumonia. CT of the abdomen and pelvis revealed a chronically dilated common bile duct with no evidence of acute bowel obstruction or inflammation. CT of the head was negative for any acute process. CT of the chest revealed an enlarging nodule in the right upper lobe, suspicious for neoplasm. She was begun on p.o. Vancomycin , IV Flagyl and Ceftazidime and continued on her Valacyclovir suppression. She has remained afebrile since admission. She has continued to complain of vomiting and diarrhea since admission. Allergies/Medications Allergies: Coded Allergies: oxycodone (From PERCOCET) (ITCH 09/02/16) Home Med List: Acetaminophen 500 MG TABLET 1 TAB PO TID PRN PAIN (Reported) Alendronate Sodium 70 MG TABLET 1 TAB PO QSUN OSTEOPOROSIS (Reported) in the morning, at least 30 minutes before the first food, beverage, or medication of the day Celecoxib (Celebrex) 100 MG CAPSULE 1 CAP PO BID ARTHRITIS - LOWER BACK ( Reported) Cevimeline HCl 30 MG CAPSULE 1 CAP PO TID SALIVA (Reported) Citalopram Hydrobromide (Celexa) 20 MG TABLET 1 TAB PO DAILY MENTAL HEALTH ( Reported) Elviteg/Samia/Emtric/Tenofo Ala (Genvoya Tablet) 150 MG-150 MG-200 MG-10 MG TABLET 1 TAB PO DAILY ANTIVIRAL (Reported) Furosemide (Lasix) 20 MG TABLET 0.5 TAB PO 5PM EDEMA (Reported) Gabapentin 300 MG CAPSULE 1 CAP PO TID NERVE PAIN (Reported) Metoclopramide HCl (Reglan) 10 MG TABLET 1 TAB PO 1430 GI (Reported) Mirtazapine 45 MG TABLET 1 TAB PO QPM SLEEP (Reported) Morphine Sulfate 15 MG TABLET 1 TAB PO TID PAIN (Reported) Ondansetron HCl 4 MG TABLET 1 TAB PO Q8H PRN N/V (Reported) Pantoprazole Sodium 40 MG TABLET.DR 1 TAB PO DAILY GI (Reported) Propranolol HCl 20 MG TABLET 1 TAB PO QAM MIGRAINES (Reported) Valacyclovir HCl (Valacyclovir) 500 MG TABLET 1 TAB PO DAILY HERPES (Reported ) Valacyclovir HCl (Valtrex) 1,000 MG TABLET 1 TAB PO DAILY HERPES SIMPLEX ( Reported) Past History Travel History Traveled to [place] past 21 day No Medical History Blood Transfusion Hx: Yes Neurological: migraine EENT: allergies Cardiovascular: NONE Respiratory: asthma, bronchitis, COPD, emphysema, pneumonia Gastrointestinal: GERD Hepatic: hepatitis A Renal: NONE Musculoskeletal: disk herniation, osteoarthritis Psychiatric: anxiety, depression Endocrine: NONE Blood Disorders: anemia Cancer(s): leukemia (AML) 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 FH: breast cancer FH: diabetes mellitus Psychosocial History Where Do You Live? Home Who Do You Live With? child (daughter) Services at Home: Nursing Smoking Status: Former Smoker ETOH Use: denies use Illicit Drug Use: denies illicit drug use Functional Ability ADLs Independent: dressing, eating, toileting, bathing. Ambulation: walker Review of Systems Review of Systems All Other Systems: Reviewed and Negative Exam & Diagnostic Data Last 24 Hrs of Vital Signs/I&O Vital Signs Date Time Temp Pulse Resp B/P B/P Pulse O2 O2 Flow FiO2 Mean Ox Delivery Rate 11/21 1023 62 130/64 11/21 0642 97.3 63 20 134/75 100 Room Air 11/21 0616 63 134/75 11/20 2218 97.5 50 18 140/60 100 Room Air 11/20 1940 98.6 56 24 151/68 98 Room Air 11/20 1829 98.4 55 / 1722 46 18 180/79 100 Room Air 11/20 1505 96.6 52 20 175/73 100 Room Air 11/20 1502 97.7 Intake & Output 11/21 1600 11/21 0800 11/21 0000 Intake Total 600 2060 Output Total 500 400 Balance 100 1660 Intake, IV 500 2000 Intake, Oral 0 Intake, Tube 100 60 Irrigant Number 2 Bowel Movements Output, Urine 500 400 Patient 104 lb 104 lb Weight Weight Reported by Patient Measurement Method Physical Exam Other Physical Findings: She is awake and alert in no acute distress. She is afebrile. Skin reveals no rash. HEENT exam is negative. Neck is supple with no adenopathy. Lungs are clear. Heart regular rhythm with no murmur. Abdomen is soft, mildly tender on palpation, with no guarding or rebound, G-tube in place with no inflammation at the site, with positive bowel sounds. Back no CVA tenderness. Extremities no cyanosis, clubbing or edema. Neuro is without focality. Last 24 Hours of Lab Results: Laboratory Tests 11/21 11/21 11/20 0854 0600 2211 Chemistry Sodium (137 - 145 mmol/L) 144 Potassium (3.5 - 5.1 mmol/L) 3.3 L Chloride (98 - 107 mmol/L) 110 H Carbon Dioxide (22 - 30 mmol/L) 18 L Anion Gap (5 - 16) 17 H BUN (7 - 17 mg/dL) 15 Creatinine (0.5 - 1.0 mg/dL) 0.6 Estimated GFR (>60 ml/min) > 60 BUN/Creatinine Ratio (7 - 25 %) 25.0 Lactic Acid (0.7 - 2.1 mmol/L) 1.9 Hematology Total Abs Lymphocytes Pending Cancelled Immunology Lymphocyte Subset Cmmnt Pending Cancelled Absolute CD3 Count Pending Cancelled % CD3 Mature T-Lymphs Pending Cancelled % CD4 [place] Pending Cancelled Absolute CD4 Count Pending Cancelled T-Help/Suppress Ratio Pending Cancelled % CD8 Suppressor Pending Cancelled Absolute CD8 Count Pending Cancelled Serology HIV 1&2 RNA (PCR) Pending Cancelled 11/20 11/20 1752 1609 Chemistry Lactic Acid (0.7 - 2.1 mmol/L) 2.2 H Urines Urinalysis LIGHT H Urine Color (YEL,AMB,STR) YEL Urine Clarity (CLEAR) HAZY H Urine pH (5.0 - 8.0) 7.5 Ur Specific [place] (1.001 - 1.035) 1.010 Urine Protein (NEG,<30 MG/DL) TRACE H Urine Ketones (NEG) NEG Urine Nitrite (NEG) NEG Urine Bilirubin (NEG) NEG Urine Urobilinogen (0.1 - 1.0 EU/dl) 0.2 Ur Leukocyte Esterase (NEG) TRACE H Ur Microscopic SEDIMENT EXAMINED Urine RBC (0 - 5 /HPF) 1-3 Urine WBC (0 - 2 /HPF) 5-10 H Ur Epithelial Cells (NONE,FEW) MOD H Urine Crystals 1+ CA OX H Urine Bacteria (NEG/NONE) MOD H Hyaline Casts (0/LPF) 1-3 H Urine Mucus (FEW,NONE) MOD H Urine Hemoglobin (NEG) NEG Urine Glucose (N MG/DL) NEG Last 24 Hours of Guy Results: Blood culture November 20 negative Urine culture November 20 negative Stool culture November 20 mixed ivis Stool C. difficile November 20 pending Diagnostic Data Recent Imaging Findings: Chest x-ray revealed a small nodule in the right upper lobe with no focal pneumonia. CT of the abdomen and pelvis revealed a chronically dilated common bile duct with no evidence of acute bowel obstruction or inflammation. CT of the head was negative for any acute process. CT of the chest revealed an enlarging nodule in the right upper lobe, suspicious for neoplasm. Assessment/Plan Assessment/Plan Impression: This is a 67-year-old [place] woman with AIDS, maintained on Gonvya, with her last CD4 count 315 and an undetectable viral load, with chronic diarrhea on and off over the past year, hospitalized at [place] 2 weeks prior to admission with C. difficile and discharged on p.o. Vancomycin, admitted on November 20 with persistent diarrhea and abdominal discomfort since discharge and the more acute onset of nausea and vomiting, with chills, headaches and mild shortness of breath, found to be afebrile, with a mild leukocytosis, hypernatremia and a mildly elevated lactic acid, with a CT of the chest revealing an enlarging right upper lobe nodule. Her persistent GI symptoms may be secondary to ongoing C. difficile, in which case would need to consider the possibility that she has failed Vancomycin. Other causes of diarrhea could be considered in this HIV-positive patient, though her recent CD4 count of 315 would make opportunistic infections, such as cryptosporidium, Cyclospora, CMV or DRAKE less likely. More common causes of diarrhea, including Salmonella and Campylobacter, could also be considered, though her stool culture is so far just growing mixed ivis. Her CT scan does reveal an enlarging right upper lobe nodule, concerning for a malignancy, which could represent metastasis from her recent throat cancer or a new primary, and this will need to be further evaluated. Suggestion: 1. Follow-up stool for C. difficile 2. Pulmonary input at some point regarding her enlarging right upper lobe nodule 3. Add Cholestyramine 1 packet via the G-tube 4 times a day (must give 2 hours before or after the Vancomycin) 4. Discontinue Ceftazidime and Flagyl 5. Continue Vancomycin but decrease to 125 mg via the G-tube every 6 hours pending above 6. If her diarrhea persists will need to consider changing to Fidaxomicin 200 mg via the G-tube. every 12 hours Consult Acknowledgment - Thank you for your consult request.
[2017-11-21 14:43] VITALS: BP 122/74
[2017-11-22 06:24] VITALS: BP 138/88
--- NOTE | 2017-11-22 10:12 | PN- Housestaff ---
See Addendum Subjective Follow-up For: Presumed C. Diff infection 2. HIV 3. Intractable diffuse headache 4. History of C.diff colitis 5. Diarrhea of presumed infectious origin 6. Intractable nausea and vomiting 7. Lactic acidosis Subjective: Patient's feeds were increased overnight from 15-25. Upon feeding patient began vomiting, and patient's rate was switched back down to 15. Patient is currently tolerating 15. Patient states that she had no episodes of diarrhea last night. Patient states that abdominal pain is improving, although she still does have it. Patient states that she feels better than yesterday. Review of Systems Constitutional: Reports: see HPI. Objective Last 24 Hrs of Vital Signs/I&O Vital Signs Date Time Temp Pulse Resp B/P B/P Pulse O2 O2 Flow FiO2 Mean Ox Delivery Rate 11/22 0624 97.7 75 20 138/88 97 11/22 0516 138/88 11/21 1443 97.4 61 20 122/74 98 Room Air Intake & Output 11/22 1600 11/22 0800 11/22 0000 Intake Total 450 660 Output Total 200 Balance -200 450 660 Intake, IV 300 600 Intake, Tube 150 60 Feeding Output, Urine 200 Physical Exam General Appearance: Alert, Oriented X3, Cooperative Skin Temp/Moisture Exam: Warm/Dry Cardiovascular: Regular Rate, Normal S1, Normal S2 Lungs: Clear to Auscultation, Normal Air Movement Abdomen: Soft, No Tenderness, G tube in place nontender Extremities: No Edema Assessment/Plan Assessment: Ms. Camilo is a 65 y/o F with PMHx of HIV on Genvoya , AML in remission s/p chemotherapy (2007), HTN, COPD(on home oxygen as needed), chronic back pain and migraines presents with vomiting and diarrhea. Diarrhea has been improving with antibiotic therapy. Problem List; #Intractable nausea/vomiting/diarrhea associated w/ HIV #Lactic acidosis 2/2 dehydration #Hypokalemia 2/2 diarrhea #HIV under Genvoya #Intractable diffuse headache #History of C.diff colitis #Diarrhea of presumed infectious origin - ID consult appreciated. Is on vancomycin 125 mg. Has not had any episodes of diarrhea, however will switch to Fidaxomicin 200 mg via the G-tube. every 12 hours on the suspicion that she failed vancomycin. - Zofran and Phenergan as needed for nausea/vomiting. Adjust tube feeds accordingly. - Lactic acid basis resolved with IV fluids. - Stool cultures are negative for C. difficile and shiga toxin. No growth to date for urine, blood cultures. - CD4 count, T-cell count and viral load pending - Continue her home medications. - Obtained the old records from [facility]. Patient tested positive for C. Difficile back in October. DVT prophylaxis; Alps and subcutaneous Lovenox Patient is full code Problem List: 1. Diarrhea Pain Ratin Pain Location: abdomen Pain Goal: Pain 7 or less Pain Plan: Morphine, Fioricet Tomorrow's Labs & Rationales: CBC trend WBC
[2017-11-22 14:17] VITALS: BP 100/60
[2017-11-22 22:39] VITALS: BP 102/60
[2017-11-23 05:30] VITALS: BP 100/58
[2017-11-23 06:58] VITALS: BP 100/60
[2017-11-23 08:04] VITALS: BP 105/67
--- NOTE | 2017-11-23 08:54 | PN- Housestaff ---
See Addendum Tony Craig 11/23/17 0854: Subjective Follow-up For: C. Diff colitis Subjective: Patient examined at bedside. Denies any complaints. States that she has not had any episodes of diarrhea overnight, has not had any vomiting or nausea either. Feels substantially better than previous days. Per nurse, patient has had one episode of soft stool. Denies fevers/chills/night sweats/chest pain/ shortness of breath/abdominal pain/lower extremity edema. Review of Systems Constitutional: Reports: see HPI. Objective Last 24 Hrs of Vital Signs/I&O Vital Signs Date Time Temp Pulse Resp B/P B/P Pulse O2 O2 Flow FiO2 Mean Ox Delivery Rate 11/23 1054 77 108/70 11/23 0804 75 105/67 100 Room Air 11/23 0658 97.4 70 20 100/60 96 /05 0543 72 100/60 / 0530 70 100/58 / 2239 97.6 66 20 102/60 98 Room Air 11/22 1417 97.6 64 18 100/60 98 Room Air Intake & Output 11/23 1600 11/23 0800 11/23 0000 Intake Total 600 480 Output Total 400 1050 Balance 200 -570 Intake, IV 600 300 Intake, Oral 0 0 Intake, Tube 120 Feeding Intake, Tube 60 Irrigant Number 0 0 Bowel Movements Output, Urine 400 1050 Physical Exam General Appearance: Alert, Oriented X3, Cooperative Skin Temp/Moisture Exam: Warm/Dry Cardiovascular: Regular Rate, Normal S1, Normal S2, No Murmurs Lungs: Clear to Auscultation, Normal Air Movement Abdomen: Soft, No Tenderness, gtube in place Neurological: Sensation Intact Extremities: No Edema Current Medications: Current Medications Sig/Solitario Start time Last Medication Dose Route Stop Time Status Admin Acetaminophen 650 MG .STK-MED ONE 11/22 2001 DC PO 11/22 2002 Acetaminophen 650 MG Q6P PRN 11/21 0015 AC 11/22 PO 2007 Alendronate Sodium 70 MG QSUN 11/26 0900 AC PO Cevimeline HCl 30 MG TID 11/21 2100 AC 11/23 PO 1056 Cholestyramine Resin 1 PAC FOUR TIMES A DAY 11/21 1800 DC 11/23 PO 1056 Citalopram 20 MG DAILY 11/21 09 AC 07/05 Hydrobromide PO 1055 Dextrose/Water 1,000 ML Q13H 11/21 0745 AC 11/23 IV 1114 Enoxaparin Sodium 40 MG DAILY 11/21 0900 DC 11/22 SC 11/23 0100 0908 Famotidine 20 MG BID 11/21 2100 AC 11/23 IV 1053 Furosemide 10 MG 5PM 11/21 1700 AC 11/22 PO 1757 Gabapentin 300 MG TID 11/21 0900 AC 11/23 PO 1054 Mirtazapine 45 MG AT BEDTIME 11/21 2100 AC 11/22 PO 2101 Morphine Sulfate 15 MG TID 11/21 0900 AC 11/23 PO 1055 Ondansetron HCl 4 MG Q6P PRN 11/21 0400 AC 11/21 IV 1435 Propranolol HCl 20 MG 0530 11/21 0530 AC 11/23 PO 1054 Trazodone HCl 50 MG AT BEDTIME NEED.. 11/22 1930 AC 11/22 PO 2101 Trimethobenzamide HCl 200 MG TIDPRN PRN 11/21 0915 AC 11/23 IM 1055 Valacyclovir HCl 500 MG DAILY 11/21 0900 AC 11/23 PO 1056 Vancomycin HCl 125 MG Q6H 11/21 2000 AC 11/23 PO 1056 Assessment/Plan Assessment: This is a 59-year-old female with a past medical history of HIV on Genvoya , AML in remission s/p chemotherapy (2007), HTN, COPD(on home oxygen as needed), chronic back pain and migraines presenting with vomiting and diarrhea. Patient has been treated for C. difficile infection. Diarrhea has improved substantially, only one episode of soft stools this morning. #C. difficile infection one soft stool this morning, continued clinical improvement. test positive for C. difficile infection back in October from [facility]. Vancomycin to complete a 2 week course, after which begin a Vancomycin taper with 125 mg p.o. every 12 hours for 1 week, followed by 125 mg p.o. every 24 hours for 1 week, followed by 125 mg p.o. every 48 hours for 1 week, followed by 125 mg p.o. every 72 hours for 2 weeks #HIV #Right upper lobe nodule - patient's tube feeds were held for this procedure, we will resume her tube feeds. Was started on 25 11:00 today, will work up to 50 mL/h. DVT prophylaxis Dispositionanticipated discharge soon when patient can tolerate feeds Problem List: 1. Vomiting 2. Diarrhea Pain Ratin Pain Location: back Pain Goal: Pain 4 or less Pain Plan: PRN Tomorrow's Labs & Rationales: eri BarbosaJimyzarina 11/23/17 1148: Attending MD Review Statement Attending Statement Attending MD Statement: examined this patient, discuss w/resident/PA/CHRONIC DISEASE EPIDEMIOLOGIST, agreed w/resident/PA/CHRONIC DISEASE EPIDEMIOLOGIST, discussed with family, reviewed EMR data (avail), discussed with nursing, discussed with case mgmt, reviewed images, amended to note Attending Assessment/Plan: Patient feeling clinically better since admission. She is on PO vancomycin 125 q 6 as per ID. Taper vancomycin as per ID recommendations. Able to give her feeds thru PEG. Adavcne as tolerated. Pulmoanry nodule: Consider IR guided biopsy. She is frail elderly female. Outpatient evalaution, inform daughter. Also provide referral to [facility]. Chronic pain on pain meds at home: controlled HIV on HAART: CD4 282 Jun 2017, c;/w HAART as per ID. c/w outpatient regimen gi/dvt prophylaxis anticipate d/c in next 24 hrs as able to tolerate feeds.
--- NOTE | 2017-11-23 11:36 | PN- Infect Dx ---
Subjective Subjective: Afebrile. She feels well with no further nausea, vomiting, abdominal pain or diarrhea Objective Last 24 Hrs of Vital Signs/I&O Vital Signs Date Time Temp Pulse Resp B/P B/P Pulse O2 O2 Flow FiO2 Mean Ox Delivery Rate 11/23 1054 77 108/70 07/05 0804 75 105/67 100 Room Air / 0658 97.4 70 20 100/60 96 07/05 0543 72 100/60 07/05 0530 70 100/58 11/22 2239 97.6 66 20 102/60 98 Room Air 11/22 1417 97.6 64 18 100/60 98 Room Air 11/22 1301 4.0 Intake & Output 11/23 1600 11/23 0800 11/23 0000 Intake Total 600 480 Output Total 400 1050 Balance 200 -570 Intake, IV 600 300 Intake, Oral 0 0 Intake, Tube 120 Feeding Intake, Tube 60 Irrigant Number 0 0 Bowel Movements Output, Urine 400 1050 Physical Exam Other Physical Findings: She appears well in no acute distress Lungs are clear Heart regular rhythm with no murmur Abdomen is soft, nontender with positive bowel sounds Results Last 24 Hours of Lab Results: Laboratory Tests 11/22 1155 Chemistry Sodium (137 - 145 mmol/L) 136 L Potassium (3.5 - 5.1 mmol/L) 3.9 Chloride (98 - 107 mmol/L) 107 Carbon Dioxide (22 - 30 mmol/L) 16 L Anion Gap (5 - 16) 14 BUN (7 - 17 mg/dL) 12 Creatinine (0.5 - 1.0 mg/dL) 0.5 Estimated GFR (>60 ml/min) > 60 BUN/Creatinine Ratio (7 - 25 %) 24.0 Last 24 Hours of Guy Results: Stool C. difficile November 20 negative Blood culture November 20 negative Urine culture November 20 negative Assessment/Plan ID Impression: Improved, with resolution of her diarrhea and with her temperatures remaining normal, on p.o. Vancomycin, Day 3 of treatment since hospitalized here, for presumed C. difficile colitis, with her C. difficile toxin negative, likely secondary to the fact that she had been on Vancomycin prior to admission. It is not clear if this represents a relapse of C. difficile, as she reports persistent diarrhea since her discharge from [facility] despite Vancomycin. Suggestion: 1. Pulmonary input regarding her enlarging right upper lobe nodule (can do as an outpatient) 2. Can discontinue Cholestyramine 3. Continue Vancomycin to complete a 2 week course, after which would begin a Vancomycin taper with 125 mg p.o. every 12 hours for 1 week, followed by 125 mg p.o. every 24 hours for 1 week, followed by 125 mg p.o. every 48 hours for 1 week, followed by 125 mg p.o. every 72 hours for 2 weeks
--- NOTE | 2017-11-23 11:37 | Discharge Summary ---
Visit Information Visit Dates Admission Date: 11/20/17 Discharge Date: 11/24/17 Hospital Course Course Attending Physician: Jay Barbosa MD Primary Care Physician: Bc Meza APRN [facility] Course: Ms. Camilo is a 67 y/o F with PMHx of HIV on Genvoya , AML in remission s/p chemotherapy (2007), HTN, COPD(on home oxygen as needed), chronic back pain and migraines presents with vomiting and diarrhea. Patient's daughter at bedside, who provided most of the history at time of presentation. She mentioned that the patient has had chronic diarrhea going on and off since last year. She was admitted at [facility] in August for diarrhea but was discharged home without any antibiotics and was later found to have C. difficile. The diarrhea improved somewhat after discharge but she continued to have frequent loose bowel movements. She was admitted to [facility] again on 11/11, and was found to be C. difficile positive and was sent home on vancomycin. Per the daughter her diarrhea slowed down last week but then worsened again. Reports 8-10 bowel movements per day which are mucousy and very watery. Patient is also incontinent and unable to control her bowel movements. Denies any blood in the stools. This morning patient started to have abdominal pain and had multiple episodes of vomiting. The vomitus is green in color, but denies any blood in the vomitus. Also reports severe headaches. Patient is on tube feeds because of history of throat cancer status post reconstruction surgery in 2016, but has not had any tube feedings since yesterday. Denies any fever or chills. Endorses increased urinary frequency but denies any pain or burning with urination. Daughter also mentions a new cough since , without any phlegm production and noticed wheezing today. She also mentions severe headache starting this morning, though has a history of migraine headaches that haven't had a migraine attack in years and has never had a headache this severe in the past. Patient follows up with Dr. Nora Dukes for HIV, last visit was 4 months ago. Last CD4 count was 200(low compared to her previous CD4 counts which were mostly in 900s), patient is due for repeat blood work this month. Vitals at the time of admission were MAXIMUM TEMPERATURE of 97.7, heart rate 47, respiratory rate 18, blood pressure 164/77 and O2 sats 100% on room air. General: WBC of 11.9, lymphocytes 0.9, H&H 18.3/43.4, platelets 263, sodium 148, potassium 4.9, lactic acid 3, and an 18 and normal LFTs. UA showed trace leukocyte esterase, WBCs 5-10, moderate bacteria and moderate epithelial cells. CT chest and abdomen with and without contrast was obtained showing right upper lobe nodule concerning for neoplasm, and was negative for any acute abdominal pathology. CT head with and without contrast was also negative for any acute intracranial pathology. Chest x-ray was negative for any acute infectious pathology. Problem List; 1. Recent C. Diff with continued diarrhea likely infectious 2. Bilious Vomiting 3. Lactic Acidosis 4. Severe headache 5. Hx of HIV The patient was admitted to gen [facility] floor and placed on isolation due to previous C. Diff infections. She was started on broad spectrum antibiotics, Vancomycin, Ceftazadine and Flagyl. Zofran and Phenergan was given as needed for nausea/vomiting. Lactic acid basis resolved with IV fluids. Blood cultures, urine culture and stool cultures were obtained. CD4 count came back at 365 , viral load undetectable. ID consult was consulted who recommended discontinuation of Ceftazadime and Flagyl, started her on Vancomycin 125mg q6 via G-tube and added cholestyramine. Patient had one night of loose stools, however responded well to the Vancomycin. Stool, Blood and Urine cultures had no growth, and C. diff toxin was negative. However, patient was on Vancomycin prior to admission which could confound that. IR guided biopsy was planned due to the R lung nodule, but was cancelled to be rescheduled outpatient when patient was not symptomatic. As her nausea and stooling resolved, patients tube feeds were restarted up to 50ml/hr which she tolerated well. She was treated for 4 days on PO vancomycin with good clinical improvement and resolution of nausea and vomiting with as needed Zofran. She was afebrile her stay, vitally stable. She was discharged on a course of Vancomycin to complete a 2 week course, after which would begin a Vancomycin taper with 125 mg p.o. every 12 hours for 1 week, followed by 125 mg p.o. every 24 hours for 1 week, followed by 125 mg p.o. every 48 hours for 1 week, followed by 125 mg p.o. every 72 hours for 2 weeks. She will follow up with IR upon discharge for further evaluation of the lung nodule, and will follow up with her PCP as well. Allergies: Coded Allergies: oxycodone (From PERCOCET) (ITCH 09/02/16) Significant Procedures: EXAMINATION: CT HEAD WITHOUT AND WITH CONTRAST CLINICAL INFORMATION: Thunderclap headache. Vomiting. COMPARISON: Head CT dated 09/02/2016. TECHNIQUE: Contiguous axial imaging was performed from the skull base to vertex before and after the administration of 95 mL of Optiray 320 intravenous contrast. DLP: 756.14 mGy-cm FINDINGS: There is no evidence of acute intracranial hemorrhage or territorial infarction. No abnormal mass effect or midline shift is seen. Ambriz to white matter differentiation is well preserved. No extra-axial fluid collections are identified. There is no abnormal enhancement. There is no evidence of hydrocephalus. Nonspecific mild bifrontal low density changes are again seen, more so on the left side. Generalized parenchymal volume loss is stable. The osseous structures and soft tissues are normal. The mastoid air cells and visualized portions of the paranasal sinuses are well aerated. IMPRESSION: No acute intracranial pathology. Stable parenchymal volume loss and nonspecific low-density white matter changes. No abnormal enhancement. EXAMINATION: CT CHEST, ABDOMEN AND PELVIS WITH CONTRAST CLINICAL INFORMATION: Septic. Bibasilar abnormal chest sounds. G-tube. Recent C. difficile. Abdominal pain. History of HIV with thunder clap headaches. History of throat cancer. COMPARISON: CT chest August 29, 2017. CT abdomen pelvis November 20, 2017. TECHNIQUE: Multidetector volumetric CT imaging of the chest, abdomen and pelvis was obtained after the administration of 90 mL of intravenous Optiray 320 without immediate adverse reactions. Coronal and sagittal reformatted images were performed at the CT scanner. DLP: 326.16 mGy-cm. FINDINGS: CT CHEST: Lungs: There is marked sotelo emphysematous changes of lung. Stable linear scarring at lung bases. There is no acute infiltrate. There are lung nodules. Largest nodules in the right upper lobe peripherally axial image 172 (5). This nodules in the subpleural lung now measuring 0.8 cm. This has increased in size since the prior CT study of August 29, 2017. This is therefore suspicious. Consider interventional radiology consult to assess for percutaneous biopsy. The other scattered bilateral small lung nodules previously noted have not changed. 1. 5 mm pleural-based nodule right lower lobe series 5, image 243. 2. 4 mm perivascular nodule right middle lobe series 5 image 292. Mediastinum: No bulky lymphadenopathy. Small shotty lymph nodes in the mediastinum stable since prior study. Pleura: There is no pleural effusion. No pleural mass or thickening. Axilla: No lymphadenopathy. CT ABDOMEN AND PELVIS: LIVER, GALLBLADDER, AND BILIARY TREE: The liver is normal in size, shape, and attenuation. No focal hepatic lesion or biliary ductal dilatation is present. The gallbladder is distended. No calcified gallstone. Extrahepatic CBD is dilated to a diameter of 1 cm. No calcified stone seen in the bile ducts. Is no change in appearance of the gallbladder or the bile duct dilatation since prior CAT scan August 29, 2017. PANCREAS: No acute change of the pancreas. No mass. No pancreatic duct dilatation. SPLEEN: Spleen normal in size and contour. No focal lesion. ADRENAL GLANDS: Adrenal glands are normal in size. No focal mass. KIDNEYS AND URETERS: The kidneys are normal in size, shape, and attenuation. No hydronephrosis, hydroureter, or calculi seen. No perinephric stranding. BLADDER: Unremarkable. GASTROINTESTINAL TRACT: There is diverticulosis of colon. Scattered diverticula throughout the colon. No diverticulitis. No acute change of the bowel wall. No bowel obstruction. Small bowel loops are normal. Percutaneous gastrotomy tube in place. MESENTERY: No focal inflammation. No free fluid. No free air. ABDOMINAL WALL: No significant hernia is appreciated. LYMPH NODES: Normal. VASCULAR: There is diffuse atherosclerotic vascular calcifications of the abdomen. Normal enhancement of the major branch vessels of aorta. PELVIC VISCERA: Unremarkable. OSSEOUS STRUCTURES: Degenerative spondylosis of spine. Multilevel disc height narrowing and endplate spurring and facet joint arthrosis. Degenerative change most significant at the lower lumbar spine L4-L5 and L5-S1. IMPRESSION: 1. Enlarging nodule in the right upper lobe. This is therefore suspicious for neoplasm. Consider interventional consult to assess for percutaneous biopsy. 2. Marked emphysematous changes of lung. 3. No acute abnormality of the abdomen or the pelvis. The gallbladder is distended and the extra hepatic CBD is dilated to 1 cm but this is similar to the CAT scan of August 29, 2017. EXAMINATION: CR PORTABLE CHEST CLINICAL INFORMATION: Fever/sepsis. Rule out pneumonia. COMPARISON: CT of the chest dated 08/29/2017. Several prior chest x-rays, most recent of which is dated 05/27/2016. TECHNIQUE: Portable frontal view of the chest was obtained. FINDINGS: The cardiomediastinal silhouette is within normal limits in size. Lungs bilaterally are symmetrically hyperinflated, consistent with patient's history of emphysema. No focal consolidation, effusion or pneumothorax is seen. Faint nodular densities are seen projected over the lung bases bilaterally, consistent with nipple shadows. There is a faint small nodular density seen peripherally in the right upper lobe, corresponding to a benign nodule found to be stable on prior CT scans. The other previously described 2 to 5 mm pulmonary nodules seen on CT scan are not clearly appreciated on plain film. Diffuse osteopenia is seen. IMPRESSION: 1. No focal pneumonia. 2. Obstructive lung disease with stable benign small nodule in the right upper lobe. EXAM TYPE: CAT - CT ABD & PELVIS W/O IV CONTRAS EXAMINATION: CT ABDOMEN AND PELVIS WITHOUT CONTRAST CLINICAL INFORMATION: 67-year-old female with recent C. difficile infection now worsening abdominal pain with nausea and vomiting. Evaluate for colitis or bowel perforation. Assess G-tube. COMPARISON: 08/29/2017 TECHNIQUE: Multidetector volumetric imaging was performed from the superior aspect of the liver through the pubic symphysis. Sagittal and coronal reformatted images were obtained on the technologist's workstation. DLP: 234 mGy-cm FINDINGS: LUNG BASES: Centrilobular emphysema in the visualized lung bases. Bronchial oropeza are chronically thickened. Again noted are some endobronchial secretions in the left lower lobe and scattered linear, hazy opacities of atelectasis in the bases. Subtle peribronchial reticular-nodular opacities in lung bases, as well, from inflammation or infection of the small airways. No focal consolidation or pleural effusion. LIVER, GALLBLADDER, AND BILIARY TREE: Liver has normal size and contour. No focal hepatic lesion is detected on this noncontrast examination. Gallbladder is physiologically distended and without radiopaque calculi. No gallbladder wall edema or pericholecystic fluid. Common bile duct remains dilated up to 1.1 cm, unchanged compared to 05/27/2016 and 08/29/2017. PANCREAS: Unremarkable. SPLEEN: Unremarkable. ADRENAL GLANDS: Unremarkable. KIDNEYS AND URETERS: Kidneys have normal size, cortical thickness and attenuation. No nephrolithiasis, hydronephrosis or perinephric edema. BLADDER: Unremarkable. GASTROINTESTINAL TRACT: The gastrostomy tube is in satisfactory position within the proximal stomach. Bowel loops are normal in caliber. Appendix is normal. No evidence of bowel wall edema or pericolonic fat stranding. Multiple scattered diverticula of the colon without diverticulitis. No ascites or pneumoperitoneum. ABDOMINAL WALL: No acute findings. LYMPH NODES: No pathologic sized lymph nodes in the abdomen or pelvis. VASCULAR: Mild atherosclerosis of the abdominal aorta and iliac arteries without aneurysm. PELVIC VISCERA: The uterus and adnexa are grossly unremarkable. No pelvic mass or free fluid. Several phleboliths are seen in the lower pelvis. OSSEOUS STRUCTURES: Chronic multilevel degenerative disc disease of the lumbar spine -- most severe at L4-L5 as manifest by severe loss of disc space, endplate irregularity, sclerosis, osteophytosis and mild right lateral listhesis of L4 on L5. No aggressive osseous lesions. IMPRESSION: 1. Within the visualized lung bases, findings include pulmonary emphysema and chronic thickening/inflammation of bronchial oropeza. No focal consolidation or pleural effusion. Correlate for history of chronic obstructive pulmonary disease. 2. Gastrostomy tube is in satisfactory position. 3. No evidence of acute bowel obstruction or inflammation on this noncontrast examination. Multiple colonic diverticula without diverticulitis. No bowel perforation. 4. Common bile duct is chronically dilated, unchanged compared to 05/27/2016. Pertinent Lab Results: (11/21/17) Absolute CD4 Count - 365 Absolute CD3 Count- 1011 %CD3 Mature T-Lymphs 54 %CD4 [place]wood 20 T-Help/Suppress Ratio 0.57 Viral Load: Undetectable Disposition Summary Disposition Principal Diagnosis: C. Difficile Colitis Additional Diagnosis: HIV, HTN, COPD, Chronic Back Pain Discharge Disposition: home health services Discharge Instructions General Discharge Information Code Status: Do Not Resucitate/Intubat Patient's Diet: Tube feeds as tolerated Patient's Activity: As Tolerated Follow-Up Instructions/Appts: - Please follow up with Interventional Radiology for evaluation of R lung nodule. - Please follow up with your primary care physician within 1-2 weeks of discharge. Inform your primary care physician of this admission to [facility]. - Continue your current medications per discharge instructions. - Please watch for these problems: Fever, Chills, Nausea, Vomiting, Shortness of Breath, Productive Cough, Chest Pain/Discomfort, Abdominal Pain, Active Bleeding or Bloody urine/stool. Medications at Discharge Discharge Medications: Stop taking the following medications: Pantoprazole Sodium (Pantoprazole Sodium) 40 MG TABLET.DR ORAL DAILY Qty = 90 Continue taking these medications: Propranolol HCl (Propranolol HCl) 20 MG TABLET 1 Tablet ORAL Every Morning Comments: LAST GIVEN 11/24/17 @ 1030 Elviteg/Samia/Emtric/Tenofo Ala (Genvoya Tablet) 150 MG-150 MG-200 MG-10 MG TABLET 1 Tablet ORAL DAILY Qty = 30 Comments: LAST GIVEN 11/24/17 @ 1000 Gabapentin (Gabapentin) 300 MG CAPSULE 1 Capsule ORAL THREE TIMES DAILY Qty = 90 Comments: LAST GIVEN 11/24/17 @ 1000 Celecoxib (Celebrex) 100 MG CAPSULE 1 Capsule ORAL TWICE DAILY Qty = 56 Comments: Last Taken:05/19/16 Time:4:41A.M Alendronate Sodium (Alendronate Sodium) 70 MG TABLET 1 Tablet ORAL EVERY MONDAY Qty = 12 Instructions: in the morning, at least 30 minutes before the first food, beverage, or medication of the day Comments: NOT GIVEN IN HOSPITAL Valacyclovir HCl (Valtrex) 1,000 MG TABLET 1 Tablet ORAL DAILY Comments: Last Taken: 05/30/16 Time: 10AM Ondansetron HCl (Ondansetron HCl) 4 MG TABLET 1 Tablet ORAL Q8H as needed for N/V Qty = 30 Cevimeline HCl (Cevimeline HCl) 30 MG CAPSULE 1 Capsule ORAL THREE TIMES DAILY Qty = 90 Mirtazapine (Mirtazapine) 45 MG TABLET 1 Tablet ORAL Every night Qty = 90 Morphine Sulfate (Morphine Sulfate) 15 MG TABLET 1 Tablet ORAL THREE TIMES DAILY Qty = 84 Comments: LAST GIVEN 11/24/17 @ 1000 Acetaminophen (Acetaminophen) 500 MG TABLET 1 Tablet ORAL THREE TIMES DAILY as needed for PAIN Citalopram Hydrobromide (Celexa) 20 MG TABLET 1 Tablet ORAL DAILY Comments: LAST GIVEN 11/24/17 @ 1000 Metoclopramide HCl (Reglan) 10 MG TABLET 1 Tablet ORAL 1430 Valacyclovir HCl (Valacyclovir) 500 MG TABLET 1 Tablet ORAL DAILY Comments: LAST GIVEN 11/24/17 @ 1000 Furosemide (Lasix) 20 MG TABLET 0.5 Tablet ORAL 5 PM Comments: LAST GIVEN 11/23/17 @ 1700 Start taking the following new medications: Famotidine (Famotidine) 20 MG TABLET 1 Tablet ORAL DAILY Qty = 30 No Refills Instructions: . Comments: LAST GIVEN 11/24/17 @ 1000 Vancomycin HCl (Vancomycin HCl) 125 MG CAPSULE 125 Milligram ORAL SEE COMMENT Qty = 69 No Refills Instructions: . Comments: 11/25-: Take 1 tablet, every 6 hours 12/05-: Take 1 tablet, every 12 hours 12/12-: Take 1 tablet, once daily 12/19-12/25: Take 1 tablet, once every other day 12/26-: Take 1 tablet, once every 3 days LAST GIVEN 11/24/17 @ 1000 Copies To: Bc Meza APRN
[2017-11-23 14:34] VITALS: BP 132/74
[2017-11-23] MEDS ORDERED: VANCOMYCIN HCL125 MG PO (16:00)
--- NOTE | 2017-11-23 16:04 | Patient Discharge Instructions ---
Discharge Instructions General Discharge Information Special Instructions: - Please continue taking vancomycin 125mg tablets every 6 hours for your colitis to complete a 2 week course (ends on 12/04), after which start taking 1 tablet every 12 hours for 1 week, and followed by 1 tablet every 24 hours for 1 week, and followed by 1 tablet every 48 hours for 1 week, and followed by 1 tablet every 72 hours for 2 weeks. - Please follow up with your infectious disease specialist Dr. Dukes within 1- 2 weeks of discharge. - Please follow up with your primary care physician within 1-2 weeks of discharge. Inform your primary care physician of this admission to [facility]. - Continue your current medications per discharge instructions. - Please watch for these problems: Fever, Chills, Nausea, Vomiting, Shortness of Breath, Productive Cough, Chest Pain/Discomfort, Abdominal Pain, Active Bleeding or Bloody urine/stool. Diet Continue normal diet: Yes Activity Full Activity/No Limits: Yes Acute Coronary Syndrome Inclusion Criteria At DC or during hospital stay patient has or had the following: ACS DIAGNOSIS No Discharge Core Measures Meds if any: Prescribed or Continued at Discharge Meds if any: NOT Prescribed or Continued at Discharge Congestive Heart Failure Inclusion Criteria At DC or during hospital stay patient has or had the following: CHF DIAGNOSIS No Discharge Core Measures Meds if any: Prescribed or Continued at Discharge Meds if any: NOT Prescribed or Continued at Discharge Cerebrovascular accident Inclusion Criteria At DC or during hospital stay patient has or had the following: CVA/TIA Diagnosis No Discharge Core Measures Meds if any: Prescribed or Continued at Discharge Meds if any: NOT Prescribed or Continued at Discharge Venous thromboembolism Inclusion Criteria VTE Diagnosis No VTE Type NONE VTE Confirmed by (Test) NONE Discharge Core Measures - Per Current guidelines, there needs to be overlap - treatment for the first 5 days of Warfarin therapy. - If discharged on Warfarin prior to 5 days of - overlap therapy, the patient will need to be - assessed for post discharge needs including - *Post discharge parental anticoagulation - *Warfarin and/or parental anticoagulation education - *Follow up date to check INR post discharge At least 5 days overlap therapy as Inpatient No Meds if any: Prescribed or Continued at Discharge Note: Overlap Therapy is Warfarin and Anticoagulant Meds if any: NOT Prescribed or Continued at Discharge
[2017-11-23 21:19] VITALS: BP 102/58
[2017-11-24 05:38] VITALS: BP 96/52
--- NOTE | 2017-11-24 08:14 | PN- Housestaff ---
See Addendum Tony Craig 11/24/17 0813: Subjective Follow-up For: C. difficile colitis Subjective: No acute events overnight. Patient's feedings were restarted, is on 50 mL's now. Patient denies any nausea or vomiting episodes. Patient has not had any diarrhea, still has 1 episode of soft stooling. Abdominal pain resolved. Denies fever/chills/night sweats/chest pain/shortness of breath/lower extremity edema. Review of Systems Constitutional: Reports: see HPI. Objective Last 24 Hrs of Vital Signs/I&O Vital Signs Date Time Temp Pulse Resp B/P B/P Pulse O2 O2 Flow FiO2 Mean Ox Delivery Rate 11/24 0538 97.5 65 20 96/52 100 Room Air 11/23 2119 98.6 62 18 102/58 100 Room Air 11/23 1600 Room Air 11/23 1434 98.3 60 16 132/74 98 Room Air Intake & Output 11/24 1600 11/24 0800 11/24 0000 Intake Total 910 955 Output Total 600 Balance 910 355 Intake, IV 600 675 Intake, Tube 310 280 Feeding Output, Urine 600 Physical Exam General Appearance: Alert, Oriented X3, Cooperative, No Acute Distress Skin Temp/Moisture Exam: Warm/Dry Cardiovascular: Regular Rate, Normal S1, Normal S2 Lungs: Clear to Auscultation, Normal Air Movement Abdomen: Soft, No Tenderness, G TUBE IN PLACE Neurological: Sensation Intact Extremities: No Edema Current Medications: Current Medications Sig/Solitario Start time Last Medication Dose Route Stop Time Status Admin Acetaminophen 650 MG .STK-MED ONE 11/23 1515 DC PO 11/23 1516 Acetaminophen 650 MG Q6P PRN 11/21 0015 AC 11/23 PO 1518 Alendronate Sodium 70 MG QSUN 11/26 0900 AC PO Cevimeline HCl 30 MG TID 11/21 2100 AC 11/24 PO 1041 Citalopram 20 MG DAILY 11/21 09 AC 11/24 Hydrobromide PO 1041 Dextrose/Water 1,000 ML Q13H 11/21 0745 AC 11/24 IV 0154 Famotidine 20 MG BID 11/21 2100 AC 11/24 IV 1041 Furosemide 10 MG 5PM 11/21 1700 AC 11/23 PO 1743 Gabapentin 300 MG TID 11/21 0900 AC 11/24 PO 1041 Mirtazapine 45 MG AT BEDTIME 11/21 2100 AC 11/23 PO 202 Morphine Sulfate 15 MG TID 11/21 09 AC 11/24 PO 1041 Ondansetron HCl 4 MG Q6P PRN 11/21 0400 AC 11/23 IV 1927 Propranolol HCl 20 MG 0530 11/21 0530 AC 11/23 PO 1054 Trazodone HCl 50 MG .STK-MED ONE 11/23 2017 DC PO 11/23 2018 Trazodone HCl 50 MG AT BEDTIME NEED.. 11/22 1930 AC 11/23 PO 2020 Trimethobenzamide HCl 200 MG TIDPRN PRN 11/21 0915 AC 11/24 IM 1048 Valacyclovir HCl 500 MG DAILY 11/21 09 AC 11/24 PO 1041 Vancomycin HCl 125 MG Q6H 11/21 2000 AC 11/24 PO 1040 Assessment/Plan Assessment: This is a 59-year-old female with a past medical history of HIV on Genvoya most recent CD4 count 365, AML in remission s/p chemotherapy (2007), HTN, COPD(on home oxygen as needed), chronic back pain and migraines presenting with vomiting and diarrhea. Patient has been treated for C. difficile infection. Diarrhea has improved substantially, only one episode of soft stools this morning. #C. difficile infection one soft stool overnight, continued clinical improvement. test positive for C. difficile infection back in October from [place]. Vancomycin to complete a 2 week course, after which begin a Vancomycin taper with 125 mg p.o. every 12 hours for 1 week, followed by 125 mg p.o. every 24 hours for 1 week, followed by 125 mg p.o. every 48 hours for 1 week, followed by 125 mg p.o. every 72 hours for 2 weeks #HIV #Right upper lobe nodule - patient's tube feeds were held for this procedure, tube feeds were restarted. Patient's now tolerating 50 mL's per hour DVT prophylaxis Dispositiondischarge today to home Problem List: 1. C. difficile diarrhea Pain Ratin Pain Location: NA Pain Goal: Remain pain free Pain Plan: As needed Tomorrow's Labs & Rationales: None Discharge Plan Discharge Disposition: home Stable for Discharge? Yes Anticipated Discharge (Day): today Jay Barbosa 11/24/17 1130: Attending MD Review Statement Attending Statement Attending MD Statement: examined this patient, discuss w/resident/PA/COAT JOINER, agreed w/resident/PA/COAT JOINER, discussed with family, reviewed EMR data (avail), discussed with nursing, discussed with case mgmt, reviewed images, amended to note Attending Assessment/Plan: Patient seen/examined bedside. Denies any new complaints. Plan is to discharge today and resume HHS at home. Continue antibitoic taper as per ID recommendations. Follow up with primary care physician in 1-2 weeks of dsicharge.
[2017-11-24] MEDS ORDERED: FAMOTIDINE20 M1 PO ×2 (08:54→11:02)
[2017-11-24] MEDS ORDERED: VANCOMYCIN HCL125 MG PO ×2 (11:02→11:23)
--- NOTE | 2017-11-24 13:25 | PN- Infect Dx ---
Subjective Subjective: Afebrile. She did have one loose stool this morning and some nausea earlier today. Objective Last 24 Hrs of Vital Signs/I&O Vital Signs Date Time Temp Pulse Resp B/P B/P Pulse O2 O2 Flow FiO2 Mean Ox Delivery Rate 11/24 0538 97.5 65 20 96/52 100 Room Air 11/23 2119 98.6 62 18 102/58 100 Room Air 11/23 1600 Room Air 11/23 1434 98.3 60 16 132/74 98 Room Air Intake & Output 11/24 1600 11/24 0800 11/24 0000 Intake Total 910 955 Output Total 600 Balance 910 355 Intake, IV 600 675 Intake, Tube 310 280 Feeding Output, Urine 600 Physical Exam Other Physical Findings: She appears comfortable in no acute distress Abdomen is soft, nontender with positive bowel sounds; G-tube in place Results Last 24 Hours of Lab Results: No labs from today Last 24 Hours of Guy Results: No recent cultures Assessment/Plan ID Impression: Stable, with her temperatures remaining normal, though with intermittent nausea and recurrent diarrhea, on p.o. Vancomycin, Day 4 of treatment after over one week of treatment as an outpatient, for presumed C. difficile colitis, with her C. difficile toxin negative, possibly secondary to the previous treatment with Vancomycin. It is not clear if this represents a relapse of C. difficile, as she reports persistent diarrhea since her discharge from [facility] despite the Vancomycin (and she apparently has chronic diarrhea for the past year) but it seems reasonable to treat her as a relapse with a Vancomycin taper as previously noted. Suggestion: 1. Pulmonary input regarding her enlarging right upper lobe nodule (can do as an outpatient) 2. Would resume Cholestyramine 3. Continue Vancomycin to complete a 2 week course, after which would begin a Vancomycin taper as outlined previously
[2017-11-24 14:02] VITALS: BP 102/62
== END 2017-11-24 14:24 | disposition home health service (06) | DRG 893 ==
LOC: ERH 11:25 → 2NB 18:28 → ERHI 18:28 → ENRESERV 19:31 → ENTRNSPT 20:36 → 2NB 20:51 → CMPTRNSPT 21:04 → 2NB 11-21 07:31 → ENPENDDIS 11-24 09:44 → ENTRNSPT 11-24 14:06 → EDTRNSPTSTS 11-24 14:16 → EDTRNSPT 11-24 14:16 → 2NB 11-24 14:24 → CMPTRNSPT 11-24 14:34
PROVIDERS: Physician Assistant
DX: A04.71 Enterocolitis due to Clostridium difficile, recurrent (principal); B20 Human immunodeficiency virus [HIV] disease; A04.8 Other specified bacterial intestinal infections; E87.2 Acidosis; E86.0 Dehydration; J44.9 Chronic obstructive pulmonary disease, unspecified; E87.0 Hyperosmolality and hypernatremia; I10 Essential (primary) hypertension; K21.9 Gastro-esophageal reflux disease without esophagitis; F41.9 Anxiety disorder, unspecified; F32.9 Major depressive disorder, single episode, unspecified; M19.90 Unspecified osteoarthritis, unspecified site; G43.909 Migraine, unspecified, not intractable, without status migrainosus; E87.8 Other disorders of electrolyte and fluid balance, not elsewhere classified; Z66 Do not resuscitate; R19.7 Diarrhea, unspecified; Z92.21 Personal history of antineoplastic chemotherapy; Z88.5 Allergy status to narcotic agent; Z93.1 Gastrostomy status; R91.1 Solitary pulmonary nodule; C92.01 Acute myeloblastic leukemia, in remission
CPT/HCPCS: 2NBP; 86359; 71045; 74176; 74177; 81001; 82436; 87015; 87040; 87045; 87086; 87536; 87899; 87899-59; 93005; 93010; 96374; 96375; J0131; J0713; J1650; J1885; J2405; J2550; J2765; J3250; J3490; J7060

== ENCOUNTER 2017-12-17 17:30 | Inpatient (IN) | payer OTHER ==
[~2017-12-17] VITALS: Ht 149.9 cm; Wt 44.6 kg
[~2017-12-17 17:30] MED LIST changes: +ALENDRONATE SOD70 M2 G TUBE; -ALENDRONATE SOD70 M2 PO; +CELEXA20 M1 G TUBE; +CEVIMELINE HCL30 M1 G TUBE; -CEVIMELINE HCL30 M1 PO; +FAMOTIDINE20 M1 PO; +GABAPENTIN300 M2 G TUBE; -GABAPENTIN300 M2 PO; +GENVOYA TABLET1 EACH G TUBE; -GENVOYA TABLET1 EACH PO; +LASIX20 M1 G TUBE; +MIRTAZAPINE45 M1 G TUBE; -MIRTAZAPINE45 M1 PO; +MORPHINE SULFAT15 M4 G TUBE; +ONDANSETRON HCL4 MG G TUBE; -ONDANSETRON HCL4 MG PO; +PROPRANOLOL HCL20 M1 G TUBE; -PROPRANOLOL HCL20 M1 PO; +REGLAN10 M1 PO; +VALACYCLOVIR500 M1 G TUBE; +VANCOMYCIN HCL125 MG PO
[2017-12-17] MEDS ORDERED: CLARITIN10 M1 G TUBE (18:06)
[2017-12-17] MEDS ORDERED: MONTELUKAST SOD10 M1 G TUBE (18:07)
[2017-12-17] MEDS ORDERED: OSMOLITE 1.5 C237 ML G TUBE (18:11)
[2017-12-17] MEDS ORDERED: ACETAMINOPHEN325 M2 G TUBE (18:12)
[2017-12-17] MEDS ORDERED: C-10001000 MG G TUBE (18:13)
[2017-12-17] MEDS ORDERED: PROAIR HFA8.5 GM INH (18:14)
[2017-12-17] MEDS ORDERED: ASPIRIN81 M4 G TUBE (18:15)
[2017-12-17] MEDS ORDERED: BENADRYL25 MG G TUBE (18:17)
[2017-12-17] MEDS ORDERED: LOPERAMIDE2 M2 PO (18:20)
[2017-12-17] MEDS ORDERED: FAMOTIDINE20 M1 G TUBE (18:22)
--- NOTE | 2017-12-17 18:52 | ED GENERAL ADULT ---
See Addendum History of Present Illness General Chief Complaint: Altered Mental Status Stated Complaint: BIBA, AMS, +DIARRHEA Source: patient, EMS Exam Limitations: confusion Vital Signs & Intake/Output Vital Signs & Intake/Output Vital Signs Date Time Temp Pulse Resp B/P B/P Pulse O2 O2 Flow FiO2 Mean Ox Delivery Rate 12/17 1827 97.4 63 22 136/79 99 Nasal 2.0L Cannula Allergies Coded Allergies: hydrocodone (ITCH 12/17/17) oxycodone (From PERCOCET) (ITCH 09/02/16) tramadol (ITCH 12/17/17) Reconcile Medications Acetaminophen 325 MG TABLET 1-2 TAB G TUBE Q8H PRN PAIN (Reported) Albuterol Sulfate (Proair Hfa) 90 MCG HFA.AER.AD 2 PUF INH Q4H PRN SOB ( Reported) Alendronate Sodium 70 MG TABLET 1 TAB G TUBE QSUN OSTEOPOROSIS (Reported) in the morning, at least 30 minutes before the first food, beverage, or medication of the day Ascorbic Acid (C-1000) 1,000 MG TABLET 1 TAB G TUBE DAILY SUPPLEMENT ( Reported) Aspirin (Aspirin*) 81 MG TAB.CHEW 1 TAB G TUBE DAILY HEART/BLOOD (Reported) Cevimeline HCl 30 MG CAPSULE 1 CAP G TUBE TID SALIVA (Reported) Citalopram Hydrobromide (Celexa) 20 MG TABLET 1 TAB G TUBE DAILY MENTAL HEALTH (Reported) diphenhydrAMINE HCl (Benadryl) 25 MG CAP 1 CAP G TUBE QPM ITCHING (Reported) Elviteg/Samia/Emtric/Tenofo Ala (Genvoya Tablet) 150 MG-150 MG-200 MG-10 MG TABLET 1 TAB G TUBE QAM ANTIVIRAL (Reported) Famotidine 20 MG TABLET 1 TAB G TUBE DAILY GI (Reported) Furosemide (Lasix) 20 MG TABLET 0.5 TAB G TUBE QAM EDEMA (Reported) Gabapentin 300 MG CAPSULE 1 CAP G TUBE TID NERVE PAIN (Reported) Loperamide HCl (Loperamide) 2 MG CAPSULE 1 CAP PO Q4H PRN DIARRHEA (Reported) Loratadine (Claritin) 10 MG TABLET 1 TAB G TUBE DAILY ALLERGIES (Reported) Metoclopramide HCl (Reglan) 10 MG TABLET 1 TAB PO 1430 GI (Reported) Mirtazapine 45 MG TABLET 1 TAB G TUBE QHS SLEEP (Reported) Montelukast Sodium 10 MG TABLET 1 TAB G TUBE DAILY ALLERGIES/RESP (Reported) Morphine Sulfate 15 MG TABLET 1 TAB G TUBE Q4H PRN PAIN (Reported) Nutritional Supplement (Osmolite 1.5 Nathaniel) 237 ML LIQUID 80 ML G TUBE QHOUR NUTRITIONAL FEEDING (Reported) Ondansetron HCl 4 MG TABLET 1 TAB G TUBE Q8H PRN NAUSEA (Reported) Propranolol HCl 20 MG TABLET 1 TAB G TUBE QAM MIGRAINES (Reported) Valacyclovir HCl (Valacyclovir) 500 MG TABLET 1 TAB G TUBE DAILY HERPES ( Reported) Vancomycin HCl 125 MG CAPSULE 125 MG PO SEE COMMENT C.Diff Colitis . Triage Note: PT BIBA FROM HOME WITH MULTIPLE COMPLAINTS. ORIGINAL VISIT REASON STATED ALTERED MENTAL STATUS. ON ARRIVAL, COMPLAINTS INCLUDED DIARRHEA x 3 WEEKS AND PAIN TO G-TUBE SITE. EMS REPORTS THAT ALTHOUGHT PT IS PRIMARILY RWANDAN SPEAKING, SHE IS ANSWERING ALL QUESTIONS APPROPRIATELY. VSS BENNETT SLATER. Triage Nurses Notes Reviewed? yes HPI: 67-year-old woman brought by EMS. According to the history given to the EMS the patient has been having diarrhea for 3 weeks. She has a history of C. difficile. Also the patient was confused over the past few days. The patient denies any complaints. Past History Travel History Traveled to [place] past 21 day No Medical History Any Pertinent Medical History? see below for history Neurological: migraine EENT: allergies Cardiovascular: NONE Respiratory: asthma, bronchitis, COPD, emphysema, pneumonia Gastrointestinal: GERD Hepatic: hepatitis A Renal: NONE Musculoskeletal: disk herniation, osteoarthritis Psychiatric: anxiety, depression Endocrine: NONE Blood Disorders: anemia Cancer(s): leukemia (AML) [employer]/Reproductive: HIV (undetectable load (12/2014)), GENITAL WARTS History of MRSA: Yes History of VRE: Yes History of CDIFF: Yes Surgical History Surgical History: THROAT CANCER/RECONS- TRUCTION OF THROAT G TUBE Psychosocial History Who do you live with 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 FH: breast cancer FH: diabetes mellitus Hx Contributory? Yes Review of Systems Review of Systems Constitutional: Denies: chills, diaphoresis, fever. Comments History is limited because of patient's confusion. She denies any complaints whatsoever even denies diarrhea. No fever reported by EMS. Physical Exam Physical Exam General Appearance: awake Head: atraumatic Eyes: Bilateral: PERRL. Ears, Nose, Throat: normal pharynx Neck: normal inspection, supple Respiratory: normal breath sounds, chest non-tender Cardiovascular: regular rate/rhythm Gastrointestinal: normal bowel sounds, soft Extremities: normal inspection Neurologic/Psych: awake, alert Comments: Neurologically: The patient is awake and alert but not oriented. The patient appears dehydrated the mucosa appeared dry and the skin appears dry. No meningismus. No focal deficits. Core Measures ACS in differential dx? No CVA/TIA Diagnosis: No Sepsis Present: No Sepsis Focused Exam Completed? No Progress Differential Diagnoses We will order labs and fluids. Plan of Care: Orders Procedure Date/time Status CT HEAD WO IV CONTRAST 12/17 1801 Active Saline Lock 12/17 1746 Active URINALYSIS 12/17 1746 Active COMPREHENSIVE METABOLIC PANEL 12/17 1746 Active CBC WITHOUT DIFFERENTIAL 12/17 1746 Active Current Medications Sig/Solitario Start time Last Medication Dose Stop Time Status Admin Sodium Chloride 1,000 ML BOLUS ONE 12/17 1899 AC (Normal Saline 0.9%) 12/17 1958 Laboratory Tests 12/17/171904: Sodium Pending, Potassium Pending, Chloride Pending, Carbon Dioxide Pending, Anion Gap Pending, BUN Pending, Creatinine Pending, BUN/Creatinine Ratio Pending , Glucose Pending, Calcium Pending, Total Bilirubin Pending, AST Pending, ALT Pending, Alkaline Phosphatase Pending, Total Protein Pending, Albumin Pending, Globulin Pending, Albumin/Globulin Ratio Pending, CBC w Diff Pending, WBC Pending, RBC Pending, Hgb Pending, Hct Pending, MCV Pending, MCH Pending, MCHC Pending, RDW Pending, Plt Count Pending, MPV Pending Initial ED EKG: none Hand-Off Endorsed To: Mohan CARBAJAL,Neville Ruiz Endorsed Time: 1910 Departure Departure Time of Disposition: 1910 Disposition: STILL A PATIENT Condition: Stable Clinical Impression Primary Impression: Dehydration Referrals: Bc Meza APRN (PCP/Family) Departure Forms: Customer Survey General Discharge Information Critical Care Note Critical Care Note Critical Care Time: non-applicable
[2017-12-17 19:16] LABS: ABSOLUTE BASOPHIL COUNT 0 /CUMM (0.0-0.2); ABSOLUTE EOSINOPHIL COUNT 0 /CUMM (0.0-0.7); ABSOLUTE LYMPH COUNT 1.5 /CUMM (1.2-3.4); ABSOLUTE MONOCYTE COUNT 0.6 /CUMM (0.10-0.60); BASOPHIL % 0.2 % (0.0-2.0); EOSINOPHIL % 0 % (0-5); GRANULOCYTE % 82.7 % (42.2-75.2); HEMATOCRIT 45.6 % (37-47); MEAN CORPUSCULAR HGB 32.8 PG (27.0-31.0); MEAN CORPUSCULAR HGB CONC 33.4 G/DL (33.0-37.0); MEAN CORPUSCULAR VOLUME 98.3 FL (81.0-99.0); MEAN PLATELET VOLUME 8.7 FL (7.4-10.4); PLATELET COUNT 273 /CUMM (130-400); RBC DISTRIBUTION WIDTH 14.4 % (11.5-14.5); RED BLOOD CELL CT 4.64 /CUMM (4.20-5.40); WHITE BLOOD CELL COUNT 12.1 /CUMM (4.8-10.8)
--- NOTE | 2017-12-17 20:53 | CT SCAN REPORT ---
CT HEAD WO IV CONTRAST CLINICAL INFORMATION: AMS COMPARISON: No prior CT scan available for comparison. TECHNIQUE: Department standard protocol. DLP: 759 mGy-cm FINDINGS: Study limited by motion artifacts. CEREBRAL HEMISPHERES: There is no evidence of intra-axial or extra-axial mass, hemorrhage or acute infarct. BRAIN PARENCHYMA: Normal patel-white matter differentiation. SUBDURAL SPACE: No bleed. BASAL GANGLIA AND PINEAL GLAND: Unremarkable VENTRICLES: Symmetric and normal in size. CEREBELLUM AND BRAINSTEM: No space-occupying mass, hemorrhage or acute infarct. CEREBELLOPONTINE ANGLES: No lesion found. ORBITS: No intraorbital mass. VESSELS: Unremarkable SKULL BASE: Unremarkable INCLUDED SINUSES AT SKULL BASE: Clear SKULL AND SKIN: No fracture or bone lesion found. IMPRESSION: Study limited by motion artifact. Deep white matter and periventricular hypoattenuation, nonspecific; however, in this patient's age group most likely sequela of chronic microvascular angiopathy ischemia.
--- NOTE | 2017-12-17 21:42 | History & Physical ---
Yesenia Delacruz 12/17/17 0650: General Information and HPI MD Statement: I have seen and personally examined CAYETANO MIKE and documented this H&P. The patient is a 67 year old F who presented with a patient stated chief complaint of []. Source of Information: family, old records History of Present Illness: 67 yo woman with PMH of -HIV :diagnosed 30 years ago, currently on Genvoya, CD4 count up from 250 last year to 315 this September and undetectable viral load; Valacyclovir for prophylaxis -AML: in remission s/p chemo in 2007 -Throat cancer: s/p surgery at [facility] in 2017, with a G-tube in place -COPD: home Oxygen PRN -Chronic back pain: on opiates -Migraines -Hypertension -recently diagnosed C.diff: on Vancomycin for 7 weeks now is brought in to the ED by her daughter with the complaint of intractable diarrhea The patient has had multiple admissions for diarrhea during the past one year, the most recent being admission to [facility] in November. Before that, she was admitted to [facility] and discharged home on antibiotics. She was again admitted to [facility] on November 11, diagnosed with C.diff colitis, and treated with Vancomycin. According to the daughter the patient has been having ongoing diarrhea which gets better for 2-3 days in between before "coming back with a vengeance" again. The diarrhea is nonbloody with no mucus in it. The patient has more than 5-6 bowel movements a day. It is usually brown in color but the daughter noticed greenish diarrhea and the patient was brought to the ED today. She denies any fever, nausea, vomiting, pain. She states that the patient is able to verbalize adequately though it is difficult for others to understand her at times. However, for the past 2-3 days she is not at her baseline, is confused, and is not able to talk at all. Notably the daughter endorses some suicidal ideations in the patient who, according to her, is fed up of all that she has been going through. The patient is minimally mobile at baseline. However according the daughter last Monday she found some of the patient's pills missing from her bedroom which is upstairs from there the patient lives. She believes that the patient got out of her bed, climbed up the stairs and holding it a bunch of medications including trazodone, Advil, aspirin in her room. The daughter is not sure when the patient does so. She found the pills missing last Monday and today before bringing the patient to the hospital, found a cocktail of pills and the patient bedding. The patient was referred to a psychiatrist and recently saw a counselor. On interviewing, the patient did admit that she had tried to, suicide in the past but denies any active suicidal ideations. The patient apparently cut through her G-feeding tube last week while the daughter was trying to change her dressing. She got it duly changed and it has been well in place since then. 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 FH: breast cancer FH: diabetes mellitus Psychosocial History Who Do You Live With? child (daughter) Services at Home: Nursing ETOH Use: denies use Functional Ability ADLs Independent: dressing, eating, toileting, bathing. Ambulation: walker Review of Systems Review of Systems Constitutional: Reports: weakness. Denies: see HPI, chills, diaphoresis, fever, malaise. EENTM: Reports: no symptoms. Cardiovascular: Reports: no symptoms, see HPI. Respiratory: Denies: hemoptysis, short of breath, sputum production. GI: Reports: abdominal pain, diarrhea, bowel incontinence. Denies: bloating, melena , nausea, bloody stool, vomiting. Genitourinary: Reports: no symptoms. Musculoskeletal: Reports: back pain. Skin: Reports: no symptoms. Neurological/Psychological: Reports: anxiety, depressed, emotional problems. Hematologic/Endocrine: Reports: no symptoms. Immunologic/Allergic: Reports: HIV/AIDS. Exam & Diagnostic Data Last 24 Hrs of Vital Signs/I&O Vital Signs Date Time Temp Pulse Resp B/P B/P Pulse O2 O2 Flow FiO2 Mean Ox Delivery Rate 12/18 0030 99 Nasal 2.0L Cannula 12/18 0019 97.8 61 16 98/60 98 Nasal Cannula 12/17 2341 97.7 12/17 2335 61 18 142/74 99 Nasal 2.0L Cannula 12/17 2047 97.9 66 18 139/74 98 Nasal 2.0L Cannula 12/17 1827 97.4 63 22 136/79 99 Nasal 2.0L Cannula 12/17 1814 97 Nasal 2.0L Cannula Intake & Output 12/18 0800 12/18 0000 12/17 1600 Intake Total Output Total 100 Balance -100 Number 2 Bowel Movements Output, Urine 100 Patient 87 lb 5 oz 98 lb Weight Weight Bed scale Reported by Patient Measurement Method Physical Exam General Appearance The patinet is in altered mental status and minimally verbal on examination. She appears to be in distressa and is constantly moving her arms and legs. She is able to minimallly communicate when prompted. Skin some bruises especially on the legs Skin Temp/Moisture Exam: Warm/Dry Sepsis Skin Exam (color): Normal for Ethnicity HEENT Atraumatic, PERRLA Neck Supple Cardiovascular Regular Rate, Normal S1, Normal S2, No Murmurs Lungs Clear to Auscultation Abdomen Normal Bowel Sounds, Soft, some diffuse tenderness reported by the patient Neurological could not be performed, given altered mental status of the patient Extremities No Clubbing, No Cyanosis, No Edema, Normal Pulses Vascular Normal Pulses Assessment/Plan Assessment: 67 yo female with HIV diagnosed 30 years ago, being treated for Erinn with CD4 count of, 315 recently diagnosed with C. difficile colitis is brought into the ED by her daughter for intractable diarrhea. The diarrhea as stated but the daughter is nonbloody with no mucus and is brown to greenish in color with 5-6 episodes per day. The patient has had suicidal ideations and, has attempted suicide in the past according to the daughter by hoarding on pills from her room in her absence. The daughter cannot give a timeline as to when she started collecting the pills but found them missing this last Monday and found a bottle of cocktail of pills in the bedding of the patient when she was being brought to the ED today. On examination the patient looks cachectic, is an altered sensorium, and is able to minimally communicate when prompted. She complains of diffuse abdominal tenderness but does not point to a specific location. She has a G-tube and a PICC line in place. Her vitals in the ED are temp: 97.4, HR: 63, RR: 22, BP: 136/79, pulse ox: 99 on 2 L of oxygen. Her labs are significant for a WBC of 12.1, sodium: 146, potassium: 5.3, anion gap: 17, acetone positive, lactic acid elevated at 2.5, urine analysis significant for ketonuria. Her EKG shows normal sinus rhythm with a QTC of 476. Plan: -Admit the patient to [facility] floors -We will evaluate her for the causes of diarrhea including resistant C. difficile versus microorganisms responsible for causing diarrhea and immunocompromised patients including cryptosporidia/cytomegalovirus/ microsporidia. -stool culture for ova, cysts, parasites -U tox for levels of acetaminophen, salicylate to rule out drug overdose on these medications. -Continue current ART, not available in the hospital, patient will need to bring it from home. -Pain management DVT prophylaxis: Subcutaneous heparin CODE STATUS DNR/DNI As Ranked By This Provider Problem List: 1. Diarrhea 2. Depression 3. Back pain, chronic 4. Leukemia in remission 5. HIV (human immunodeficiency virus infection) 6. Altered mental status, unspecified 7. Generalized weakness 8. Lactic acidosis 9. Dehydration 10. C. difficile diarrhea 11. History of suicide attempt 12. Depression Core Measures/Misc (02/05) Acute Coronary Syndrome ACS Diagnosis: No Congestive Heart Failure Congestive Heart Failure Diagnosis No Cerebrovascular Accident CVA/TIA Diagnosis: No VTE (View Protocol) VTE Risk Factors Age>40 No Mechanical VTE Prophylaxis d/t N/A MechProphylax Ordered No VTE Pharm Prophylaxis d/t NA PharmProphylax ordered Sepsis (View protocol) Sepsis Present: No If YES complete Sepsis Event Note If YES complete Sepsis Event Note Alba Coe 12/18/17 0021: Core Measures/Misc (02/05) Sepsis (View protocol) If YES complete Sepsis Event Note If YES complete Sepsis Event Note Resident Review Statement Resident Statement: examined this patient, discussed with customer success intern, agreed with customer success intern, discussed with family, reviewed EMR data (avail) Other Findings: 67 year old woman from home with PMHx of HIV on Genvoya diagnosed 30 years ago ( last CD4 count done in September 2017, CD4 315, undetectable viral load), she is followed by Dr. Arjun Gonzalez at [employer] [facility] [employer] and valcyclovir for prophylaxis, AML in remission s/p chemotherapy (2007), throat cancer, status post surgery 2017, with a G-tube in place for feedings and medications, HTN, COPD (on home oxygen as needed), chronic back pain on opiates, migraines, history of C. difficile coming for evaluation of AMS and diarrhea of 7 weeks duration. Her last admission to [facility] was November 20, 2017 for similar symptoms of ongoing diarrhea. she was discharged on p.o. vancomycin which she has been taking since the past 7 weeks currently taking p.o. 125 mg daily. Daughter provided most of the history and was at bedside. Stated that she has been continuously having diarrhea which has not subsided since her discharge she might have 2-3 days in between where she had no episodes of diarrhea however the last week it has gotten worse she has been having more than 5-10 episodes of diarrhea daily, which is nonbloody and now she has noticed some greenish color to the diarrhea. Diarrhea is also always foul-smelling. Denies any documented fever, nausea, vomiting. Daughter has also noted since the past 2-3 days patient has been not at her baseline mental status. Says that she is not as talkative and seems "high" Daughter states been having some suicidal ideations and has verbalized that she would like to kill her self. There is a caregiver that comes home however the patient is at home alone for about 5 hours while the daughter goes to work. Usually patient is unable to ambulate however there are times when she does ambulate and apparently there might have been multiple unwitnessed falls. Daughter has noted one time when the patient had gone up 1 flight of stairs to take the medications that are usually kept in the daughter's room. And apparently about a week ago she took out a bottle of trazodone. When the daughter was looking for it she eventually found a bottle of trazodone along with Advil along with aspirin. Daughter thinks that she might of tried to overdose herself on these. Cannot quantify how many pills the patient had ingested. She was referred to a psychiatrist. States that she couple of days ago she met with a counselor. Patient went to see her HIV specialist about a week ago and he felt that her diarrhea might need more workup by GI. Vitals in ED were stable. On examination patient was uncomfortable but cachectic with dry mucous membranes, CVS S1-S2 no murmurs, chest clear to auscultation abdomen was soft though patient complained of diffuse abdominal pain there was no specific tenderness to palpation PEG tube site looked clean. No peripheral edema noted. Labs significant for hyponatremia of 146, hyperkalemia 5.3, chloride 108, bicarb 21, BUN 23, creatinine 0.8, AST 43, ALT 25 positive for acetone, anion gap 17, glucose 136, lactic acid elevated at 2.5, UA significant for ketonuria, trace esterase EKG shows normal sinus rhythm with QTC increased from previous EKG to 476 CT abd/pelvis wo contrast showed no evidence for acute abdominal or pelvic inflammatory or infectious processes. CT head was limited by motion artifact, showed chronic microvascular changes. Problem list: * Chronic diarrhea * Altered mental status in the setting of recent possible overdose * Anion gap metabolic acidosis possibly secondary to starvation ketosis * HIV currently on ART * Chronic pain on opiates [morphine and oxycodone] * Depression and anxiety * History of suicidal ideation/attempt * Lung nodule * H/O of AML in remission Plan: * Admit to general medicine, vitals per protocol * Differentials for her diarrhea could be refractory C. difficile versus other infectious causes including microsporidia/crypto/MAC/cytomegalovirus. * We will send stool for studies for culture, ova, parasites, norvovirus, Microsporidia, cryptosporidiosis and c.diff. If c.diff tox is negative, consider PCR. Cytomegalovirus less likely as she is on valacyclovir prophylaxis however is still in the deferential. * ID consult in a.m. * Patient apparently was seen by Dr. ZELAYA her ENT specialist at [facility] for follow-up of her throat carcinoma and had a PET scan which was done last week which also included her chest. Daughter did not want to handover the PET scan imaging and said that she will bring it in in the morning for the day team to look over. She will also bring in the formal report once she receives it. * Of note She did not get a biopsy of her lung nodule Pulmonary consult in the morning. * Will follow up U tox, alcohol level, salicylate and acetaminophen levels * Continue current ART (Genvoya), which patient will bring need from home. * Continue other home medications including valacyclovir via her G-tube, gentle IV fluids * Hold her medications of morphine, mirtazapine, oxycodone in view of recently altered mental status. Can restart aspirin once levels are back. * Pain management: IV Tylenol for now as needed * DVT prophylaxis: Subcutaneous Lovenox * CODE STATUS: DNR/DNI Parish CARBAJALArmando 12/18/17 0438: General Information and HPI MD Statement: I have seen and personally examined CAYETANO MIKE and documented this H&P. The patient is a 67 year old F who presented with a patient stated chief complaint of [change in mental status]. Source of Information: family, old records Exam Limitations: clinical condition, confusion Allergies/Medications Allergies: Coded Allergies: hydrocodone (ITCH 12/17/17) oxycodone (From PERCOCET) (ITCH 09/02/16) tramadol (ITCH 12/17/17) Home Med list Acetaminophen 325 MG TABLET 1-2 TAB G TUBE Q8H PRN PAIN (Reported) Albuterol Sulfate (Proair Hfa) 90 MCG HFA.AER.AD 2 PUF INH Q4H PRN SOB ( Reported) Alendronate Sodium 70 MG TABLET 1 TAB G TUBE QSUN OSTEOPOROSIS (Reported) in the morning, at least 30 minutes before the first food, beverage, or medication of the day Ascorbic Acid (C-1000) 1,000 MG TABLET 1 TAB G TUBE DAILY SUPPLEMENT ( Reported) Aspirin (Aspirin*) 81 MG TAB.CHEW 1 TAB G TUBE DAILY HEART/BLOOD (Reported) Cevimeline HCl 30 MG CAPSULE 1 CAP G TUBE TID SALIVA (Reported) Citalopram Hydrobromide (Celexa) 20 MG TABLET 1 TAB G TUBE DAILY MENTAL HEALTH (Reported) diphenhydrAMINE HCl (Benadryl) 25 MG CAP 1 CAP G TUBE QPM ITCHING (Reported) Elviteg/Samia/Emtric/Tenofo Ala (Genvoya Tablet) 150 MG-150 MG-200 MG-10 MG TABLET 1 TAB G TUBE QAM ANTIVIRAL (Reported) Famotidine 20 MG TABLET 1 TAB G TUBE DAILY GI (Reported) Furosemide (Lasix) 20 MG TABLET 0.5 TAB G TUBE QAM EDEMA (Reported) Gabapentin 300 MG CAPSULE 1 CAP G TUBE TID NERVE PAIN (Reported) Loperamide HCl (Loperamide) 2 MG CAPSULE 1 CAP PO Q4H PRN DIARRHEA (Reported) Loratadine (Claritin) 10 MG TABLET 1 TAB G TUBE DAILY ALLERGIES (Reported) Metoclopramide HCl (Reglan) 10 MG TABLET 1 TAB PO 1430 GI (Reported) Mirtazapine 45 MG TABLET 1 TAB G TUBE QHS SLEEP (Reported) Montelukast Sodium 10 MG TABLET 1 TAB G TUBE DAILY ALLERGIES/RESP (Reported) Morphine Sulfate 15 MG TABLET 1 TAB G TUBE Q4H PRN PAIN (Reported) Nutritional Supplement (Osmolite 1.5 Nathaniel) 237 ML LIQUID 80 ML G TUBE QHOUR NUTRITIONAL FEEDING (Reported) Ondansetron HCl 4 MG TABLET 1 TAB G TUBE Q8H PRN NAUSEA (Reported) Propranolol HCl 20 MG TABLET 1 TAB G TUBE QAM MIGRAINES (Reported) Valacyclovir HCl (Valacyclovir) 500 MG TABLET 1 TAB G TUBE DAILY HERPES ( Reported) Vancomycin HCl 125 MG CAPSULE 125 MG PO SEE COMMENT C.Diff Colitis . 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 Exam & Diagnostic Data Last 24 Hrs of Vital Signs/I&O Vital Signs Date Time Temp Pulse Resp B/P B/P Pulse O2 O2 Flow FiO2 Mean Ox Delivery Rate 12/18 0030 99 Nasal 2.0L Cannula 12/18 0019 97.8 61 16 98/60 98 Nasal Cannula 12/17 2341 97.7 12/17 2335 61 18 142/74 99 Nasal 2.0L Cannula 12/177 97.9 66 18 139/74 98 Nasal 2.0L Cannula 12/17 1827 97.4 63 22 136/79 99 Nasal 2.0L Cannula 12/17 1814 97 Nasal 2.0L Cannula Intake & Output 12/18 0800 12/18 0000 12/17 1600 Intake Total Output Total 100 Balance -100 Number 2 Bowel Movements Output, Urine 100 Patient 87 lb 5 oz 98 lb Weight Weight Bed scale Reported by Patient Measurement Method Physical Exam General Appearance Cooperative, Moderate Distress Skin some bruises especially on the legs Skin Temp/Moisture Exam: Warm/Dry Sepsis Skin Exam (color): Normal for Ethnicity HEENT Atraumatic, PERRLA Neck Supple Lymphatic Axillary nl, Cervical nl Cardiovascular Regular Rate, Normal S1, Normal S2, No Murmurs Lungs Clear to Auscultation Abdomen Normal Bowel Sounds, Soft, some diffuse tenderness reported by the patient Last 24 Hrs of Labs/Guy: Laboratory Tests 12/18/17 0000: Lactic Acid 1.5, Salicylates < 1.0, Acetaminophen < 10.0 L 12/17/179: Acetaminophen Cancelled 12/17/172232: Methadone Screen Cancelled, Barbiturate Screen Cancelled, Ur Phencyclidine Scrn Cancelled, Amphetamines Screen Cancelled, U Benzodiazepines Scrn Cancelled, Urine Cocaine Screen Cancelled, Urine Cannabis Screen Cancelled 12/17/170: Urine Opiates Screen > 4000.00 H, Methadone Screen 66, Barbiturate Screen 579 H, Ur Phencyclidine Scrn < 6.00, Amphetamines Screen < 100, U Benzodiazepines Scrn < 85, Urine Cocaine Screen < 50, Urine Cannabis Screen < 5.00, Urinalysis LIGHT H, Urine Color BROWN H, Urine Clarity HAZY H, Urine pH 6.5, Ur Specific [place] 1.015, Urine Protein 30 H, Urine Ketones 15 H, Urine Nitrite NEG, Urine Bilirubin POS@ICTO H, Urine Urobilinogen 0.2, Ur Leukocyte Esterase TRACE H, Ur Microscopic SEDIMENT EXAMINED, Urine WBC 1-3 H, Urine Mucus MANY H, Urine Hemoglobin NEG, Urine Glucose NEG 12/17/17 1905: Anion Gap 17 H, Estimated GFR > 60, BUN/Creatinine Ratio 28.8 H, Glucose 136 H, Lactic Acid 2.5 H, Calcium 10.4 H, Total Bilirubin 1.0, AST 43 H, ALT 25, Alkaline Phosphatase 126, Troponin I < 0.01, Total Protein 8.5 H, Albumin 4.9, Globulin 3.6, Albumin/Globulin Ratio 1.4, Amylase 84, Lipase 159, CBC w Diff NO MAN DIFF REQ, RBC 4.64, MCV 98.3, MCH 32.8 H, MCHC 33.4, RDW 14.4, MPV 8.7, Gran % 82.7 H, Lymphocytes % 12.5 L, Monocytes % 4.6, Eosinophils % 0, Basophils % 0.2, Absolute Granulocytes 10.0 H, Absolute Lymphocytes 1.5, Absolute Monocytes 0.6, Absolute Eosinophils 0, Absolute Basophils 0, Serum Alcohol < 10.0, Acetone Level POSITIVE AT 1:2 DIL Microbiology 12/17 2124 STOOL: Clostridium difficile Toxin A & B - RECD 12/17 2124 STOOL: Stool Culture - RECD Core Measures/Misc (02/05) Sepsis (View protocol) If YES complete Sepsis Event Note If YES complete Sepsis Event Note Attending MD Review Statement Attending Statement Attending MD Statement: examined this patient, discuss w/resident/PA/ENGRAVER [employer]ARD [employer]ALS, agreed w/resident/PA/ENGRAVER [employer], amended to note Attending Assessment/Plan: This patient is a 67 year old female with a significant past medical history for HIV on Genvoya diagnosed 30 years ago (last CD4 count done in September 2017, CD4 315, undetectable viral load), valcyclovir for prophylaxis, AML in remission s/p chemotherapy (2007), throat cancer (s/p resection 2016, a G-tube in place for feedings and medications), HTN, COPD (on home oxygen as needed), chronic back pain, migraines, history of C. difficile coming for evaluation of increased change in mental status and diarrhea of 7 weeks duration (history from daughter) . Her last admission to [facility] was November 20, 2017 for ongoing diarrhea. After that visit she was discharged on oral vancomycin which she has been taking since the past 7 weeks (currently 125 mg daily). She has been continuously having diarrhea which has not subsided since her discharge, last week it has gotten worse and she has been having more than 5-10 episodes of diarrhea daily, which is nonbloody, foul smelling and greenish color. Daughter states been having some suicidal ideations and has verbalized that she would like to kill herself (see details in residents note). She was referred to a psychiatrist. States that she couple of days ago she met with a counselor. Significant findings upon evaluation in the ED included: Vitals stable, diffuse abdominal pain, hyperkalemia 5.3, lactic acid elevated at 2.5, UA significant for ketonuria, trace esterase, EKG -- normal sinus rhythm with QTC increased from previous EKG to 476, CT abd/pelvis/head -- NAD. Admit to Gen Med, C. difficile versus other infectious causes. Reconsult ID and consider pulm consult for nodules (PET scan recently performed with ? results).
--- NOTE | 2017-12-17 23:20 | CT SCAN REPORT ---
EXAMINATION: CT ABDOMEN AND PELVIS WITHOUT CONTRAST CLINICAL INFORMATION: Abdominal pain. COMPARISON: November 20, 2017. TECHNIQUE: Contiguous axial thin section helical images of the abdomen and pelvis were performed without oral or IV contrast. The data set was reformatted in the coronal and sagittal planes and reviewed on an independent workstation. DLP: 238 mGy-cm. FINDINGS: The visualized lung bases are clear. The visualized portions of the heart are unremarkable. A G-tube is in place. The liver is of normal size and attenuation without focal lesions nor intrahepatic biliary ductal dilation. A normal gallbladder is identified. There is no wall thickening or discernible pericholecystic fluid. The spleen, pancreas, adrenal glands are unremarkable. Both kidneys are of normal size and attenuation without hydronephrosis or nephrolithiasis. There is no abdominal free fluid. There is neither mesenteric nor retroperitoneal lymphadenopathy. Normal unopacified loops of small and large bowel are identified. There is no pelvic free fluid. The urinary bladder is unremarkable. There is neither pelvic nor inguinal lymphadenopathy. Bone windows: Neither sclerotic nor lytic bone lesions are identified. There is disc height loss at L4/L5 with stable sclerotic changes on either side of the disc space. IMPRESSION: No evidence for acute abdominal or pelvic inflammatory or infectious processes.
[2017-12-18 00:19] VITALS: BP 98/60
[2017-12-18 01:00] VITALS: BP 98/60
[2017-12-18 06:08] VITALS: BP 102/58
--- NOTE | 2017-12-18 08:08 | PN- Housestaff ---
See Addendum Subjective Follow-up For: altered mental status possible SI chronic diarrhea Complaints: no complaints Subjective: Patient is A&Ox2 (person and place). She denies SI although she admits to wanting her life to end before she came into the hospital. She states she did not have a plan and no longer feels that way. She denies any pain and has no complaints. Denies fever, chills, n/v, chest pain, SOB, abdominal pain. Review of Systems Constitutional: Reports: see HPI. Objective Last 24 Hrs of Vital Signs/I&O Vital Signs Date Time Temp Pulse Resp B/P B/P Pulse O2 O2 Flow FiO2 Mean Ox Delivery Rate 12/18 0608 97.7 59 16 102/58 97 Nasal Cannula 12/18 0100 97.8 61 16 98/60 98 Nasal Cannula 12/18 0030 99 Nasal 2.0L Cannula 12/18 0019 97.8 61 16 98/60 98 Nasal Cannula 12/17 2341 97.7 12/17 2335 61 18 142/74 99 Nasal 2.0L Cannula 12/17 2047 97.9 66 18 139/74 98 Nasal 2.0L Cannula 12/17 1827 97.4 63 22 136/79 99 Nasal 2.0L Cannula 12/17 1814 97 Nasal 2.0L Cannula Intake & Output 12/18 1600 12/18 0800 12/18 0000 Intake Total 620 Output Total 100 Balance 620 -100 Intake, IV 620 Number 2 Bowel Movements Output, Urine 100 Patient 87 lb 5 oz 98 lb Weight Weight Bed scale Reported by Patient Measurement Method Physical Exam General Appearance: Alert, Cooperative, No Acute Distress Skin: No Rashes Skin Temp/Moisture Exam: Warm/Dry HEENT: Atraumatic, PERRLA, on 2L NC Neck: Supple Cardiovascular: Regular Rate, Normal S1, Normal S2, No Murmurs Lungs: Clear to Auscultation Abdomen: Normal Bowel Sounds, Soft, No Tenderness, PEG tube in place with dressing c/d/i Extremities: No Edema Assessment/Plan Assessment: 67 yo female with HIV diagnosed 30 years ago, being treated for Erinn with CD4 count of, 315 recently diagnosed with C. difficile colitis is brought into the ED by her daughter for intractable diarrhea. The diarrhea is nonbloody with no mucus and is brown to greenish in color with 5-6 episodes per day. The patient has had suicidal ideations with questionable plan as patient was 'hoarding pain pills' per the daughter. The daughter cannot give a timeline as to when she started collecting the pills but found them missing this last Monday and found a bottle of pills in the bedding of the patient when she was being brought to the ED today. On examination the patient looks cachectic, is an altered sensorium, and is able to minimally communicate when prompted. She complains of diffuse abdominal tenderness but does not point to a specific location. She has a G- tube and a PICC line in place. Patient will be admitted to general medicine service for further management of the following: Problem List: 1. Altered Mental status 2. Chronic diarrhea with h/o C-diff 3. HIV with CD4 count 315; viral load undetected 4. Suicidal Ideation 5. PEG-tube #AMS-2/2 dehydration vs medication induced vs HIV related -IVF hydration -assess orientation frequently -Utox: postive for Barbituate elevation #chronic diarrhea with h/o C-diff -stool culture pending -C-diff antigen pending -Continue vancomycin taper from previous Rx: 125mg every other day from 12/19-12/25 then one pill once every 3 days from 12/26-01/08. #Suicidal Ideation -Psych consult: 1. Add mirtazapine 7.5 mg p.o. nightly 2. Continue citalopram 20 mg p.o. daily 3. The patient should follow-up with her outpatient psychiatrist on discharge 4. Social work may be able to help with setting up this appointment 5. Continue one-to-one observation #HIV -continue home meds -contact daughter and have her bring in Cevimeline/Genvoya #PEG tube -Nutrition consult for tube feed recommendations #chronic medical problems: -recent PET scan at [facility]-will send for records DVT prophylaxis: ALPS/lovenox Problem List: 1. Diarrhea 2. Altered mental status, unspecified Pain Ratin Pain Location: none Pain Goal: Remain pain free Pain Plan: see a/p Tomorrow's Labs & Rationales: cbc bep
--- NOTE | 2017-12-18 08:50 | Cons- Psychiatry ---
Psychiatric Consult Date of Consult: 12/18/17 Reason for Consult: Assessment of suicidal ideation History of Present Illness: This 67-year-old female was admitted on December 17. She was brought to the emergency room from home with multiple complaints including diarrhea and questionable altered mental status. The patient's daughter reported to staff that the patient had confided in her that she was hoarding her medication with the intention of taking her life. The patient was admitted earlier this month with enterocolitis due to C. difficile. The patient is primarily Kittitian-speaking but answers all questions appropriately. She states "I do not want to live no more". She reports she has problems but is unwilling or unable to elaborate. She states she has some discord with her daughter with whom she lives but says they argue over "silly things". The patient states that she was hiding some medication from her daughter and she says her daughter hides the medication from her. She denies any difficulty with sleep or with appetite. She describes her mood as "so-so". She is ambivalent about dying but admits that she may be a risk to herself. She denies difficulties with sleep or appetite prior to admission. She enjoys TV. There are no psychotic symptoms. Past psychiatric history: The patient is an psychiatric treatment although she is unsure where "you have to ask my daughter". She is prescribed citalopram 20 mg. She has never been admitted psychiatrically. There is no history of suicide attempts or deliberate self-harm. Substance abuse history patient denies Past medical history: HIV with CD4 count of 315 and undetectable viral load, AML in remission, history of throat cancer in remission, G-tube in place, COPD, chronic back pain, migraines, hypertension, recent diagnosis of C. difficile. Current social: The patient is with her daughter and her 2 children. She has a son who is in the [employer] and lives in [place]. She has 4 grandchildren and is expecting 1/5 in January. She is looking forward to this. She was never and raised her children on her own. She has 1 sister who lives in [place] and they speak on the phone every day. Allergies: Coded Allergies: hydrocodone (ITCH 12/17/17) oxycodone (From PERCOCET) (ITCH 09/02/16) tramadol (ITCH 12/17/17) Current Medications: Med Acetaminophen 1,000 MG IV Q6P PRN 12/18/17 0130 N/A 1 UNIT Aspirin 81 MG PO DAILY 12/18/17899 Citalopram Hydrobromide 20 MG PO DAILY 12/18/17 09 Enoxaparin Sodium 40 MG SC DAILY 12/18/17 09 Famotidine 20 MG PO DAILY 12/18/17 09 Gabapentin 300 MG PO TID 12/18/17 0011 Loratadine 10 MG PO DAILY 12/18/17899 Montelukast Sodium 10 MG PO DAILY 12/18/17 09 Propranolol HCl 20 MG PO QAM 12/18/17 09 Sodium Chloride 1,000 ML IV Q10H 12/18/17 0400 Valacyclovir HCl 500 MG PO DAILY 12/18/17 09 Past History Past Medical History Neurological: migraine EENT: allergies Cardiovascular: hypertension Respiratory: asthma, bronchitis, COPD, emphysema, pneumonia Gastrointestinal: GERD Hepatic: hepatitis A Renal: NONE Musculoskeletal: disk herniation, osteoarthritis Psychiatric: anxiety, depression Endocrine: NONE Blood Disorders: anemia 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 Pleasant, good eye contact. Speech heavily accented and somewhat difficult to understand as patient edentulous. Speech normal in rate, rhythm, volume and tone. She describes her mood is "so so". Her affect was sad. She was not suicidal but had feelings of futility and hopelessness. Thought process was normal in tempo and stream. Form was concrete. There are no delusions or obsessions. Attention and concentration were good. There is no perceptual abnormality. Impulse control is fair. Cognition is grossly intact. Patient's insight is fair, judgment unimpaired. Diffential Diagnosis: Major depressive disorder with anxious distress Impression: This 67-year-old female with a complicated medical history is presenting with an exacerbation of depressive symptoms. Provisional Treatment Plan: 1. Add mirtazapine 7.5 mg p.o. nightly 2. Continue citalopram 20 mg p.o. daily 3. The patient should follow-up with her outpatient psychiatrist on discharge 4. Social work may be able to help with setting up this appointment 5. Continue one-to-one observation Psychiatry will follow. Thank you for consulting us on this patient.
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
[2017-12-18 15:13] VITALS: BP 110/60
[2017-12-18 21:40] VITALS: BP 100/62
--- NOTE | 2017-12-19 05:35 | PN- Housestaff ---
Elliott Cook 12/19/17 0534: Subjective Follow-up For: Chronic diarrhea Pulm nodule Deppression/anxiety Complaints: no complaints Subjective: She was A&Ox3, she denies any fever, chills, nausea vomiting, chest pain, shortness of breath, abdominal pain, or dizziness. Review of Systems Constitutional: Reports: see HPI. Objective Last 24 Hrs of Vital Signs/I&O Vital Signs Date Time Temp Pulse Resp B/P B/P Pulse O2 O2 Flow FiO2 Mean Ox Delivery Rate 12/20 1427 97.9 62 20 110/70 99 08/ 1030 88/64 12/20 1005 97.6 62 20 88/64 100 / 0800 Room Air 12/20 0617 98.4 62 20 102/62 98 12/19 2249 98 Room Air 12/19 2235 97.8 60 18 110/76 96 Intake & Output 12/20 1600 12/20 0800 12/20 0000 Intake Total 480 600 360 Output Total Balance 480 600 360 Intake, Tube 480 480 240 Feeding Intake, Tube 120 120 Irrigant Number 5 Bowel Movements Physical Exam General Appearance: Alert, Oriented X3, Cooperative HEENT: Atraumatic Cardiovascular: Regular Rate, Normal S1, Normal S2 Lungs: Clear to Auscultation, Normal Air Movement Abdomen: Normal Bowel Sounds, Soft, No Tenderness Assessment/Plan Assessment: Patient is a 67-year-old female with HIV infection diagnosed for 30 years, and the recent diagnosis of C. difficile colitis who was brought to ER by daughter, Jose, for evaluation of chronic diarrhea. Diarrhea: C. difficile versus tube feed Plan: Vancomycin will be continued and we will check C. difficile PCR HIV: She is back on her home medications. Consult with ID has been done. Plan: Continue home medications Altered mental status: She is back to normal status after hydration Plan: We will monitor her status: And consult psych Pulmonary nodule: Based on prior PET/CT scan the pulmonary nodule is probably malignancy Plan: Follow-up with pulmonary as an outpatient Problem List: 1. Diarrhea 2. AIDS 3. Depression 4. Altered mental status, unspecified Pain Ratin Pain Location: NA Pain Goal: Remain pain free Pain Plan: NA Tomorrow's Labs & Rationales: Cdif PCR Fredrick Garnett MD 12/19/17 1441: Attending Review Statement Attending Statement Attending MD Statement: examined this patient, discuss w/resident/PA/FRONT END MANAGER, agreed w/resident/PA/FRONT END MANAGER, reviewed EMR data (avail), discussed with nursing, discussed with case mgmt, amended to note Attending Assessment/Plan: The patient was seen and discussed with house staff, nursing, case management and ID (Dr. Cross). OK to change to po Vanco as per Dr. Cross and follow diarrhea. HIV meds brought in from home and restarted. Tolerating tube feeds at current rate (should be at goal rate by next shift). Continue to follow diarrhea.
[2017-12-19 06:20] VITALS: BP 112/60
--- NOTE | 2017-12-19 08:35 | Cons- Pulmonary ---
General Information and HPI Consulting Request Date of Consult: 12/19/17 Requested By: Niki Reason for Consult: Right lower lobe pulmonary nodule History of Present Illness: Patient is 67-year-old long-standing HIV history of head and neck cancer in 2017 status post PEG tube and distant history of AML admitted with persistent diarrhea in the setting of C. difficile. A CT scan done in August showed a right lower lobe nodule which on follow-up in November have increased in size. A PET scan done at [facility] on December 15 showed this to have significant FDG uptake worrisome for primary pulmonary malignancy. Prior pulmonary function test showed only mild COPD and patient is no longer actively smoking. Allergies/Medications Allergies: Coded Allergies: hydrocodone (ITCH 12/17/17) oxycodone (From PERCOCET) (ITCH 09/02/16) tramadol (ITCH 12/17/17) Home Med List: Acetaminophen 325 MG TABLET 1-2 TAB G TUBE Q8H PRN PAIN (Reported) Albuterol Sulfate (Proair Hfa) 90 MCG HFA.AER.AD 2 PUF INH Q4H PRN SOB ( Reported) Alendronate Sodium 70 MG TABLET 1 TAB G TUBE QSUN OSTEOPOROSIS (Reported) in the morning, at least 30 minutes before the first food, beverage, or medication of the day Ascorbic Acid (C-1000) 1,000 MG TABLET 1 TAB G TUBE DAILY SUPPLEMENT ( Reported) Aspirin (Aspirin*) 81 MG TAB.CHEW 1 TAB G TUBE DAILY HEART/BLOOD (Reported) Cevimeline HCl 30 MG CAPSULE 1 CAP G TUBE TID SALIVA (Reported) Citalopram Hydrobromide (Celexa) 20 MG TABLET 1 TAB G TUBE DAILY MENTAL HEALTH (Reported) diphenhydrAMINE HCl (Benadryl) 25 MG CAP 1 CAP G TUBE QPM ITCHING (Reported) Elviteg/Samia/Emtric/Tenofo Ala (Genvoya Tablet) 150 MG-150 MG-200 MG-10 MG TABLET 1 TAB G TUBE QAM ANTIVIRAL (Reported) Famotidine 20 MG TABLET 1 TAB G TUBE DAILY GI (Reported) Furosemide (Lasix) 20 MG TABLET 0.5 TAB G TUBE QAM EDEMA (Reported) Gabapentin 300 MG CAPSULE 1 CAP G TUBE TID NERVE PAIN (Reported) Loperamide HCl (Loperamide) 2 MG CAPSULE 1 CAP PO Q4H PRN DIARRHEA (Reported) Loratadine (Claritin) 10 MG TABLET 1 TAB G TUBE DAILY ALLERGIES (Reported) Metoclopramide HCl (Reglan) 10 MG TABLET 1 TAB PO 1430 GI (Reported) Mirtazapine 45 MG TABLET 1 TAB G TUBE QHS SLEEP (Reported) Montelukast Sodium 10 MG TABLET 1 TAB G TUBE DAILY ALLERGIES/RESP (Reported) Morphine Sulfate 15 MG TABLET 1 TAB G TUBE Q4H PRN PAIN (Reported) Nutritional Supplement (Osmolite 1.5 Nathaniel) 237 ML LIQUID 80 ML G TUBE QHOUR NUTRITIONAL FEEDING (Reported) Ondansetron HCl 4 MG TABLET 1 TAB G TUBE Q8H PRN NAUSEA (Reported) Propranolol HCl 20 MG TABLET 1 TAB G TUBE QAM MIGRAINES (Reported) Valacyclovir HCl (Valacyclovir) 500 MG TABLET 1 TAB G TUBE DAILY HERPES ( Reported) Vancomycin HCl 125 MG CAPSULE 125 MG PO SEE COMMENT C.Diff Colitis . Review of Systems Review of Systems Constitutional: Denies: chills, fever. Cardiovascular: Denies: chest pain. Respiratory: Denies: cough, hemoptysis. GI: Reports: diarrhea. Past History Travel History Traveled to [place] past 21 day No Medical History Neurological: migraine EENT: allergies Cardiovascular: hypertension Respiratory: asthma, bronchitis, COPD, emphysema, pneumonia Gastrointestinal: GERD Hepatic: hepatitis A Renal: NONE Musculoskeletal: disk herniation, osteoarthritis Psychiatric: anxiety, depression Endocrine: NONE Blood Disorders: anemia Cancer(s): head/neck cancer [employer]/Reproductive: HIV (CD4 315 VL ND (09/2017)) Surgical History Surgical History: THROAT CANCER/RECONS- TRUCTION OF THROAT G TUBE Family History Relations & Conditions If Any: MOTHER (Breast cancer in her 60s, DM). FH: breast cancer FH: diabetes mellitus Psychosocial History Who Do You Live With? child (daughter) Services at Home: Nursing Smoking Status: Never Smoked ETOH Use: denies use Illicit Drug Use: denies illicit drug use Functional Ability ADLs Independent: dressing, eating, toileting, bathing. Ambulation: walker Employment History Employment: Retired Exam & Diagnostic Data Last 24 Hrs of Vital Signs/I&O Vital Signs Date Time Temp Pulse Resp B/P B/P Pulse O2 O2 Flow FiO2 Mean Ox Delivery Rate 12/19 0812 97.8 66 16 114/62 12/19 0620 97.8 51 16 112/60 98 Nasal Cannula 12/19 0000 100 Nasal 2.0L Cannula 12/18 2140 97.3 50 18 100/62 100 12/18 1600 Nasal 2.0L Cannula 12/18 1513 97.1 56 18 110/60 100 Nasal 1.0L Cannula 12/18 1420 Nasal 1.0L Cannula 12/18 0926 102/58 Intake & Output 12/19 1600 12/19 0800 12/19 0000 Intake Total 800 120 Output Total Balance 800 120 Intake, IV 800 Intake, Oral 0 0 Intake, Tube 60 Feeding Intake, Tube 60 Irrigant Number 3 1 Bowel Movements Oxygen saturation 2 L 98% exam for chest shows clear lung kerns are no wheezes cardiac exam shows regular S1 and S2 abdomen is soft with G-tube present. There is no lower extremity edema. Last 48 Hrs of Labs/Guy: Laboratory Tests 12/18/17 1000: Albumin Cancelled 12/18/17 0600: Sodium Cancelled, Potassium Cancelled, Chloride Cancelled, Carbon Dioxide Cancelled, Anion Gap Cancelled, BUN Cancelled, Creatinine Cancelled, BUN/ Creatinine Ratio Cancelled, CBC w Diff Cancelled, WBC Cancelled, RBC Cancelled, Hgb Cancelled, Hct Cancelled, MCV Cancelled, MCH Cancelled, MCHC Cancelled, RDW Cancelled, Plt Count Cancelled, MPV Cancelled 12/18/17 0000: Lactic Acid 1.5, Salicylates < 1.0, Acetaminophen < 10.0 L 12/17/179: Acetaminophen Cancelled 12/17/17 2233: Methadone Screen Cancelled, Barbiturate Screen Cancelled, Ur Phencyclidine Scrn Cancelled, Amphetamines Screen Cancelled, U Benzodiazepines Scrn Cancelled, Urine Cocaine Screen Cancelled, Urine Cannabis Screen Cancelled 12/17/17 2130: Urine Opiates Screen > 4000.00 H, Methadone Screen 66, Barbiturate Screen 579 H, Ur Phencyclidine Scrn < 6.00, Amphetamines Screen < 100, U Benzodiazepines Scrn < 85, Urine Cocaine Screen < 50, Urine Cannabis Screen < 5.00, Urinalysis LIGHT H, Urine Color BROWN H, Urine Clarity HAZY H, Urine pH 6.5, Ur Specific [place] 1.015, Urine Protein 30 H, Urine Ketones 15 H, Urine Nitrite NEG, Urine Bilirubin POS@ICTO H, Urine Urobilinogen 0.2, Ur Leukocyte Esterase TRACE H, Ur Microscopic SEDIMENT EXAMINED, Urine WBC 1-3 H, Urine Mucus MANY H, Urine Hemoglobin NEG, Urine Glucose NEG 12/17/17 1905: Anion Gap 17 H, Estimated GFR > 60, BUN/Creatinine Ratio 28.8 H, Glucose 136 H, Lactic Acid 2.5 H, Calcium 10.4 H, Total Bilirubin 1.0, AST 43 H, ALT 25, Alkaline Phosphatase 126, Troponin I < 0.01, Total Protein 8.5 H, Albumin 4.9, Globulin 3.6, Albumin/Globulin Ratio 1.4, Amylase 84, Lipase 159, CBC w Diff NO MAN DIFF REQ, RBC 4.64, MCV 98.3, MCH 32.8 H, MCHC 33.4, RDW 14.4, MPV 8.7, Gran % 82.7 H, Lymphocytes % 12.5 L, Monocytes % 4.6, Eosinophils % 0, Basophils % 0.2, Absolute Granulocytes 10.0 H, Absolute Lymphocytes 1.5, Absolute Monocytes 0.6, Absolute Eosinophils 0, Absolute Basophils 0, Serum Alcohol < 10.0, Acetone Level POSITIVE AT 1:2 DIL Assessment/Plan Impression/Plan: 67-year-old woman HIV positive long-time smoker with mild COPD was found to have a enlarging right lower lobe pulmonary nodule which is PET positive. Concern is raised over a primary lung cancer rather than metastatic disease from head and neck cancer as it is a isolated lesion. Other considerations are opportunistic infections though the slow progression and isolated nature of the lesion without svetlana-lesion infiltration makes this less likely The options for intervention are CT-guided lung biopsy versus primary resection. Patient has evidence of emphysema on CT scan raising the possibility of postbiopsy pneumothorax. Recommendations: Recommend CT surgery evaluation. Repeat pulmonary function testing. Consult Acknowledgment - Thank you for your consult request.
--- NOTE | 2017-12-19 12:28 | PN- Psychiatry ---
Assessment/Plan Impression: Pt not suicidal today "I have thought about it". Future-oriented. Calm and appropriate. Brighter, smiling, affect reactive. She is not suicidal or homicidal. There are no psychotic symptoms. She is alert and oriented 3. Spoke with daughter Jose Latham [phone]. She reports that pt has been taking extra medication as well as "stealing ibuprofen" in the hope that if she takes them slowly she will . She feels her mother is not safe at home and would like to see her placed somewhere where she can be safe. The patient's daughter works and the patient spends significant amount of time alone. Her daughter is afraid that she will fall. Of note, the patient's daughter was not aware that the patient was able to manage the stairs. Since these tablets are gone missing from upstairs rooms her fears for her mother safety have been compounded. Suggestion: Advised the patient's daughter that we will consult with social work and case management. The patient is not an imminent suicide risk and geriatric psychiatric admission at this time would likely not offer much benefit. Subjective Subjective: The patient reports that she feels much better today, has "thought about it" and no longer wants to . She is future oriented, looking forward to the of her grandchild in January. She also appreciates that her daughter asked her grandson to visit her. Objective Last 24 Hrs of Vital Signs/I&O Vital Signs Date Time Temp Pulse Resp B/P B/P Pulse O2 O2 Flow FiO2 Mean Ox Delivery Rate 12/19 0812 97.8 66 16 114/62 12/19 0800 Nasal 2.0L Cannula 12/19 0620 97.8 51 16 112/60 98 Nasal Cannula 12/19 0000 100 Nasal 2.0L Cannula 12/18 2140 97.3 50 18 100/62 100 12/18 1600 Nasal 2.0L Cannula 12/18 1513 97.1 56 18 110/60 100 Nasal 1.0L Cannula 12/18 1420 Nasal 1.0L Cannula Intake & Output 12/19 1600 12/19 0800 12/19 0000 Intake Total 800 120 Output Total Balance 800 120 Intake, IV 800 Intake, Oral 0 0 Intake, Tube 60 Feeding Intake, Tube 60 Irrigant Number 3 1 Bowel Movements
--- NOTE | 2017-12-19 12:34 | PN- Infect Dx ---
Subjective Subjective: No fever; improved abd pain. 3 loose BM today. Review of Systems Comments: 12 points reviewed as noted, otherwise negative. Objective Last 24 Hrs of Vital Signs/I&O Vital Signs Date Time Temp Pulse Resp B/P B/P Pulse O2 O2 Flow FiO2 Mean Ox Delivery Rate 12/19 0812 97.8 66 16 114/62 12/19 0800 Nasal 2.0L Cannula 12/19 0620 97.8 51 16 112/60 98 Nasal Cannula 12/19 0000 100 Nasal 2.0L Cannula 12/18 2140 97.3 50 18 100/62 100 12/18 1600 Nasal 2.0L Cannula 12/18 1513 97.1 56 18 110/60 100 Nasal 1.0L Cannula 12/18 1420 Nasal 1.0L Cannula Intake & Output 12/19 1600 12/19 0800 12/19 0000 Intake Total 800 120 Output Total Balance 800 120 Intake, IV 800 Intake, Oral 0 0 Intake, Tube 60 Feeding Intake, Tube 60 Irrigant Number 3 1 Bowel Movements Physical Exam Other Physical Findings: General Appearance Thin; chronically ill Skin Temp/Moisture Exam: Warm/Dry HEENT Atraumatic, thick white plaques tongue Neck No JVD Cardiovascular S1, S2 present, No Murmur/Gallop Lungs Clear to Auscultation Abdomen Normal Bowel Sounds, Soft, no guarding Neurological could not be performed, given altered mental status of the patient Extremities No Clubbing, No Cyanosis, No Edema, Normal Pulses Vascular Normal Pulses Results Last 24 Hours of Lab Results: Laboratory Tests 12/19 0850 Chemistry Sodium (137 - 145 mmol/L) Pending Potassium (3.5 - 5.1 mmol/L) Pending Chloride (98 - 107 mmol/L) Pending Carbon Dioxide (22 - 30 mmol/L) Pending Anion Gap (5 - 16) Pending BUN (7 - 17 mg/dL) Pending Creatinine (0.5 - 1.0 mg/dL) Pending BUN/Creatinine Ratio (7 - 25 %) Pending Lactic Acid (0.7 - 2.1 mmol/L) 2.1 TSH (0.270 - 4.200 uIU/mL) Pending Last 24 Hours of Guy Results: s : ADM IN SPEC #: [id number] YANA: 12/17/17 STATUS: RES RECD: 12/17/[address]: Mohan CARBAJAL, Neville Ruiz SOURCE: STOOL ENTR: 12/17/17-[address]: Bc Meza APRN [facility]: Maxim CARBAJAL,[facility] ORDERED: STOOL CULTURE, C.DIFFICILE EIA COMMENT: Has pt had antimicrobial/antineoplastic rx in past 4-6wks? Y Has pt had abd pain, fever, or constipation? Y Procedure Result > STOOL CULTURE Preliminary 12/19/17-08 Mixed ivis after 2 days > C. DIFFICILE TOXIN A & B EIA Final 12/18/17-1330 NEGATIVE FOR CLOSTRIDIUM DIFFICILE TOXINS A & B BY EIA > SHIGA TOXIN 1 AKA EHEC Final 12/18/17-144 NEGATIVE; NOT DETECTED. > SHIGA TOXIN 2 AKA EHEC Final 12/18/17-1448 NEGATIVE; NOT DETECTED. Recent Imaging Studies: reviewed Assessment/Plan ID Impression: 67 yo woman with PMH of HIV :diagnosed 30 years ago, currently on Genvoya, CD4 count up from 250 last year to 315 this September and undetectable viral load, AML: in remission s/p chemo in 2007, throat cancer: s/p surgery in 2017, with a G-tube in place, COPD, chronic back pain, migraines, hypertension and recurrent C.diff: on Vancomycin taper was admitted on 12/15. CDI episodes 07/09, 09/06 and most recently 11/09/17. Recurrent diarrhea/abd pain; ? related to TF Mild leukocytosis ? Thrush Suggestion: 1. F/U stool for C.diff by PCR. 2. Trend CBC, BMP 3. Empiric oral vancomycin 125 mg po q 6 h until for stool for C. difficile by PCR results available. 4. Check HIV VL and CD 4 count. 5. Nystatin swish and swallow q 6 h x14 d.
[2017-12-19 14:45] VITALS: BP 108/58
[2017-12-19 22:35] VITALS: BP 110/76
[2017-12-20 06:17] VITALS: BP 102/62
--- NOTE | 2017-12-20 08:39 | PN- Pulmonary ---
Subjective HPI/Critical Care Issues: She continues to complain of diarrhea. I met with her daughter yesterday and reviewed her CT scan results of PET scan raising concern over probable primary lung cancer. Mrs. Camilo has been made aware of this possibility Objective Current Medications: Current Medications Sig/Solitario Start time Last Medication Dose Route Stop Time Status Admin Acetaminophen 1,000 MG Q6P PRN 12/18 0130 AC 12/19 N/A 1 UNIT IV 1539 Aspirin 81 MG DAILY 12/18 09 AC 12/19 PO 0812 Citalopram 20 MG DAILY 12/18 09 AC 12/19 Hydrobromide PO 08 Enoxaparin Sodium 40 MG DAILY 12/18 09 AC 12/19 SC 0812 Famotidine 20 MG DAILY 12/18 09 AC 12/19 PO 0811 Fidaxomicin 200 MG BID 12/19 0900 DC 12/19 PO 12/23 0859 1011 Gabapentin 300 MG TID 12/18 0011 AC 12/19 PO 2039 Loratadine 10 MG DAILY 12/18 09 AC 12/19 PO 0811 Mirtazapine 7.5 MG AT BEDTIME 12/18 2100 AC 12/19 PO 2039 Montelukast Sodium 10 MG DAILY 12/18 09 AC 12/19 PO 0811 Nystatin 5 ML 4 TIMES/DAY 12/18 1311 AC 12/19 PO 01/01 0901 2039 Patient Medication 1 ED ONE ONE 12/19 1615 DC 12/19 Teaching ED 12/19 1616 1740 Propranolol HCl 20 MG QAM 12/18 09 AC 12/19 PO 0812 Valacyclovir HCl 500 MG DAILY 12/18 0900 AC 12/19 PO 0812 Vancomycin HCl 125 MG Q6 12/19 1200 AC 12/20 PO 0519 Vancomycin HCl 125 MG DAILY 12/19 1105 DC PO Zinc Oxide 1 SORAYA BID 12/20 09 AC TOP Vital Signs & I&O Last 24 Hrs of Vitals and I&O: Vital Signs Date Time Temp Pulse Resp B/P B/P Pulse O2 O2 Flow FiO2 Mean Ox Delivery Rate 12/20 616 98.4 62 20 102/62 98 12/19 2249 98 Room Air 12/195 97.8 60 18 110/76 96 12/19 1445 97.2 61 18 108/58 99 Nasal 2.0L Cannula Intake & Output 12/20 1600 12/20 0800 12/20 0000 Intake Total 600 360 Output Total Balance 600 360 Intake, Tube 480 240 Feeding Intake, Tube 120 120 Irrigant Murmur oxygen saturation 98% exam for chest shows clear lung kerns cardiac exam shows a regular S1 and S2 without murmurs Impression/Plan Impression/Plan Impression/Plan: 67-year-old with continued diarrhea in the setting of HIV has a pet positive pulmonary nodule highly suspicious for primary lung cancer Recommendations: Further evaluation and intervention can be deferred to the outpatient setting after her acute medical issues have resolved. CT surgery evaluation for possible primary resection
--- NOTE | 2017-12-20 09:14 | PN- Housestaff ---
Elliott Cook 12/20/17 0913: Subjective Follow-up For: Chronic diarrhea Pulm nodule Deppression/anxiety Complaints: Frequent small volume diarrhea Subjective: She was A&Ox3, she denies any fever, chills, nausea vomiting, chest pain, shortness of breath, abdominal pain, or dizziness. This morning she was concerned about her pectus scan reports from [facility] and she wanted me to call her daughter. Reports from nurse: She had frequent low-volume diarrhea almost every 15 minutes for the last night, his tube feeding was started yesterday. Review of Systems Constitutional: Reports: see HPI. Objective Last 24 Hrs of Vital Signs/I&O Vital Signs Date Time Temp Pulse Resp B/P B/P Pulse O2 O2 Flow FiO2 Mean Ox Delivery Rate 12/20 1005 97.6 62 20 88/64 100 12/20 0617 98.4 62 20 102/62 98 12/19 2249 98 Room Air 12/19 2235 97.8 60 18 110/76 96 12/19 1445 97.2 61 18 108/58 99 Nasal 2.0L Cannula Intake & Output 12/20 1600 12/20 0800 12/20 0000 Intake Total 600 360 Output Total Balance 600 360 Intake, Tube 480 240 Feeding Intake, Tube 120 120 Irrigant Physical Exam General Appearance: Alert, Oriented X3, Cooperative, No Acute Distress Skin: No Rashes, She had rash in her sacral and inguinal area. Skin Temp/Moisture Exam: Warm/Dry HEENT: Atraumatic, PERRLA Neck: Supple, No JVD Assessment/Plan Assessment: Patient is a 67-year-old female with HIV infection diagnosed for 30 years, and the recent diagnosis of C. difficile colitis who was brought to ER by daughter, Jose, for evaluation of chronic diarrhea. Her diarrhea has increased from the night before to every 10-15 minutes, this has happened after increasing her G-tube feeding. She had no complaints about pain, dizziness, nausea vomiting. Previous stool specimen for Shiga and C. difficile was negative, we tried to send blood sample for C. difficile PCR and CD4, CD8 counts. One of the experience nurses helpled us to draw blood using a vein finder but she did not have any accessible veins even by using vein finder. So we sent stool sample for c.dif PCR. Once we have a blood sample we will also recheck TSH and T4 because of previous TSH was as high as 43.9 Potassium reports from [facility] has shown significant FDG uptake which is worrisome for primary pulmonary malignancy, this was reviewed by Dr. William. Problem List: 1. 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 Depression Pain Ratin Pain Location: NA Pain Goal: Remain pain free Pain Plan: NA Tomorrow's Labs & Rationales: TSH, T4-abnormal TSH T helper/suppressor-HIV patient C. difficile PCR-chronic diarrhea Fredrick Garnett MD 12/20/17 1243: Attending MD Review Statement Attending Statement Attending MD Statement: examined this patient, discuss w/resident/PA/STOCK LIFTER, agreed w/resident/PA/STOCK LIFTER, reviewed EMR data (avail), discussed with nursing, discussed with case mgmt, amended to note Attending Assessment/Plan: The patient was seen and discussed with house staff. Increased diarrhea noted since TF restarted (currently at goal rate). Awaiting C diff PCR, however specimen was not obtained. Will obtain today. Impression/Plan: #Diarrhea- ? C-diff vs. related to tube feeds. Plan: Will continue Vanco and check C-diff PCR. Family desires STR. #HIV Disease- back on her usual meds. ID input appreciated. Plan: Continue current meds. #Altered Mental Status- back to baseline post hydration/etc. Plan: Will follow. Psych follow-up as OP. Mirtazapine, Citalopram, etc. as per psychiatry. #Pulmonary Nodule- probable malignancy based on prior PET/CT. Plan: OP evaluation with pulmonary.
[2017-12-20 10:05] VITALS: BP 88/64
--- NOTE | 2017-12-20 12:39 | PN- Infect Dx ---
Subjective Subjective: Afebrile. She still complains of diarrhea but has no nausea, vomiting or abdominal pain. Objective Last 24 Hrs of Vital Signs/I&O Vital Signs Date Time Temp Pulse Resp B/P B/P Pulse O2 O2 Flow FiO2 Mean Ox Delivery Rate 12/20 1030 88/64 12/20 1005 97.6 62 20 88/64 100 12/20 0800 Room Air 12/20 0617 98.4 62 20 102/62 98 12/19 2249 98 Room Air 12/19 2235 97.8 60 18 110/76 96 12/19 1445 97.2 61 18 108/58 99 Nasal 2.0L Cannula Intake & Output 12/20 1600 12/20 0800 12/20 0000 Intake Total 600 360 Output Total Balance 600 360 Intake, Tube 480 240 Feeding Intake, Tube 120 120 Irrigant Physical Exam Other Physical Findings: She appears comfortable in no acute distress Lungs are clear Abdomen is soft, mildly tender on palpation, with no guarding or rebound, positive bowel sounds; PEG in place with no inflammation at the site Extremities no cyanosis, clubbing or edema Results Last 24 Hours of Lab Results: Laboratory Tests 12/19 0850 Chemistry Sodium (137 - 145 mmol/L) 147 H Potassium (3.5 - 5.1 mmol/L) 3.3 L Chloride (98 - 107 mmol/L) 116 H Carbon Dioxide (22 - 30 mmol/L) 19 L Anion Gap (5 - 16) 12 BUN (7 - 17 mg/dL) 12 Creatinine (0.5 - 1.0 mg/dL) 0.5 Estimated GFR (>60 ml/min) > 60 BUN/Creatinine Ratio (7 - 25 %) 24.0 Lactic Acid (0.7 - 2.1 mmol/L) 2.1 TSH (0.270 - 4.200 uIU/mL) 43.900 H Hematology WBC Cancelled RBC Cancelled Hgb Cancelled Hct Cancelled MCV Cancelled MCH Cancelled MCHC Cancelled RDW Cancelled Plt Count Cancelled MPV Cancelled Last 24 Hours of Guy Results: Stool culture December 19 mixed ivis Assessment/Plan ID Impression: Persistent diarrhea, possibly secondary to C. difficile, with initial improvement on po Vancomycin on her last admission, but with worsening of her diarrhea with tapering of her Vancomycin to once a day approximately 1 week prior to this admission. She is currently back on Vancomycin 4 times a day, though her C. difficile is negative and the stool was not sent for PCR. Given her complaints of chronic diarrhea for the past year, other etiologies must be considered. An opportunistic infection, such as cryptosporidium, microsporidia, Cyclospora, CMV or DRAKE, secondary to her HIV status, is possible, though her last CD4 of 365 makes these less likely. Suggestion: 1. Would send the stool for C. difficile PCR 2. Add Cholestyramine 1 packet 4 times a day via her G-tube (need to give 1 hour before or 2 hours after every dose of p.o. Vancomycin) 3. GI evaluation 4. Continue p.o. Vancomycin pending above
[2017-12-20 14:27] VITALS: BP 110/70
[2017-12-20 20:43] VITALS: BP 130/80
[2017-12-21 06:30] VITALS: BP 102/70
--- NOTE | 2017-12-21 06:33 | PN- Housestaff ---
See Addendum Subjective Follow-up For: Chronic diarrhea Pulmonary nodule Depression/anxiety Subjective: I visited this patient at 6:55 in the morning, she was A&Ox3, she denies any fever, chills, shortness of breath, abdominal pain, lightheadedness, dizziness, nausea, vomiting, no chest pain. She reports that she did not have diarrhea for the first part of the night till 4 am but after that she had 4 bowel movements each hour. Review of Systems Constitutional: Reports: see HPI. Objective Last 24 Hrs of Vital Signs/I&O Vital Signs Date Time Temp Pulse Resp B/P B/P Pulse O2 O2 Flow FiO2 Mean Ox Delivery Rate 12/21 0630 98.0 63 20 102/70 100 12/20 2043 98.4 64 18 130/80 98 / 1427 97.9 62 20 110/70 99 08/01 1030 88/64 08 1005 97.6 62 20 88/64 100 Intake & Output 12/21 1600 12/21 0800 12/21 0000 Intake Total 660 300 Output Total Balance 660 300 Intake, Other 60 Intake, Tube 480 240 Feeding Intake, Tube 180 Irrigant Physical Exam General Appearance: Alert, Oriented X3, Cooperative, No Acute Distress Skin: No Rashes Skin Temp/Moisture Exam: Warm/Dry Sepsis Skin Exam (color): Normal for Ethnicity HEENT: Atraumatic Neck: Supple, No JVD Cardiovascular: Regular Rate, Normal S1, Normal S2 Lungs: Clear to Auscultation, Normal Air Movement Abdomen: Normal Bowel Sounds, Soft, No Tenderness Neurological: Normal Speech Assessment/Plan Assessment: She has had chronic diarrhea, no blood sampling was obtained yesterday, so stool sample sent for C. difficile PCR. Overall the patient feels better than yesterday and she believes that the diarrhea is better. We are waiting for C. difficile PCR, if negative GI bleed follow-up. Cholestyramine is started based on ID consult. Diarrhea: C-diff vs. related to tube feeds. Plan: Will continue Vanco and check C-diff PCR. Family desires STR. HIV Disease: She is back on her home mediacations for HIV. Plan: Continue current meds. Altered Mental Status: She is back to her normal baseline. Plan: We will follow her condition closely. Phsychiatrist has recommended Mirtazapine and Citalopram. Pulmonary Nodule: Per evaluation manager consult it is probably a primary malignancy based on prior PET /CT. Plan: She will follow up as an outpatient with evaluation manager. Problem List: 1. Persistent vomiting 2. AIDS 3. Depression 4. History of suicide attempt Pain Ratin Pain Location: NA Pain Goal: Remain pain free Pain Plan: NA Tomorrow's Labs & Rationales: C diff PCR
--- NOTE | 2017-12-21 08:48 | PN- Pulmonary ---
Subjective HPI/Critical Care Issues: Patient continues to report diarrhea Objective Current Medications: Current Medications Sig/Solitario Start time Last Medication Dose Route Stop Time Status Admin Acetaminophen 1,000 MG .STK-MED ONE 12/20 175 DC IV 12/20 175 Acetaminophen 1,000 MG Q6P PRN 12/18 0130 12/20 N/A 1 UNIT IV 1800 Aspirin 81 MG DAILY 12/18 899 AC 12/20 PO 0854 Citalopram 20 MG DAILY 12/18 899 AC 12/20 Hydrobromide PO 0855 Enoxaparin Sodium 40 MG DAILY 12/18 09 AC 12/20 SC 0854 Famotidine 20 MG DAILY 12/18 899 AC 12/20 PO 0855 Gabapentin 300 MG TID 12/18 0011 AC 12/20 PO 202 Levothyroxine Sodium 0.025 MG DAILY AC 12/21 07 AC 12/21 PO 0649 Loratadine 10 MG DAILY 12/18 09 AC 12/20 PO 0855 Mirtazapine 7.5 MG AT BEDTIME 12/18 2100 AC 12/20 PO 2022 Montelukast Sodium 10 MG DAILY 12/18 09 AC 12/20 PO 0855 Nystatin 5 ML 4 TIMES/DAY 12/18 1311 AC 12/20 PO 01/01 09 202 Potassium Chloride 40 MEQ ONCE ONE 12/21 699 DC PO 12/21 07 Propranolol HCl 20 MG QAM 12/18 09 AC 12/19 PO 0812 Sodium Chloride 2 SPRAY TID 12/20 1452 AC 12/20 FABY 2022 Valacyclovir HCl 500 MG DAILY 12/18 09 AC 12/20 PO 0854 Vancomycin HCl 125 MG Q6 12/19 1200 AC 12/21 PO 0614 Zinc Oxide 1 SORAYA BID 12/20 0900 AC 12/20 TOP 2022 Vital Signs & I&O Last 24 Hrs of Vitals and I&O: Vital Signs Date Time Temp Pulse Resp B/P B/P Pulse O2 O2 Flow FiO2 Mean Ox Delivery Rate 12/21 629 98.0 63 20 102/70 100 12/20 2042 98.4 64 18 130/80 98 12/20 1427 97.9 62 20 110/70 99 / 1030 88/64 12/20 1005 97.6 62 20 88/64 100 Intake & Output 12/21 1600 12/21 0812/21 0000 Intake Total 660 300 Output Total Balance 660 300 Intake, Other 60 Intake, Tube 480 240 Feeding Intake, Tube 180 Irrigant Room air oxygen saturation normal exam for chest shows clear lung kerns cardiac exam shows a regular S1 and S2 without murmurs Impression/Plan Impression/Plan Impression/Plan: 67-year-old woman HIV-positive has a Positive slowly enlarging right lung lesion highly suspicious for primary pulmonary malignancy Recommendations: Further evaluation and intervention can be deferred to the outpatient setting after her acute medical issues have resolved. CT surgery evaluation for possible primary resection please call for any other pulmonary issues otherwise patient will be seen in follow-up as outpatient
--- NOTE | 2017-12-21 12:22 | PN- Infect Dx ---
Subjective Subjective: Afebrile. She had an episode of vomiting this morning after taking potassium and continues to have diarrhea, with 5 watery stools reported this morning. She also notes mild abdominal discomfort and a headache. Objective Last 24 Hrs of Vital Signs/I&O Vital Signs Date Time Temp Pulse Resp B/P B/P Pulse O2 O2 Flow FiO2 Mean Ox Delivery Rate 12/21 0957 63 102/70 12/21 0800 Room Air 12/21 0630 98.0 63 20 102/70 100 / 2043 98.4 64 18 130/80 98 12/20 1427 97.9 62 20 110/70 99 Intake & Output 12/21 1600 12/21 0800 12/21 0000 Intake Total 660 300 Output Total Balance 660 300 Intake, Other 60 Intake, Tube 480 240 Feeding Intake, Tube 180 Irrigant Physical Exam Other Physical Findings: She appears comfortable in no acute distress Abdomen soft, mildly tender on palpation, with no guarding or rebound, positive bowel sounds Results Last 24 Hours of Lab Results: Laboratory Tests 12/21 1005 Serology C. difficile Tox B Gene Pending Last 24 Hours of Guy Results: Stool C. difficile PCR December 21 pending Stool culture December 19 mixed ivis Assessment/Plan ID Impression: Persistent diarrhea, with one episode of vomiting and mild abdominal discomfort today, possibly secondary to a relapse of C. difficile, with recurrence of her diarrhea on a Vancomycin taper. She is currently on Vancomycin, with her C. difficile negative and with the PCR pending. Given her complaints of chronic diarrhea for the past year other etiologies must be considered and further evaluation needs to be pursued if her C. difficile PCR is negative. An opportunistic infection, such as cryptosporidium, microsporidium, Cyclospora, CMV or DRAKE, secondary to her HIV status, is possible, though her last CD4 of 365 makes these less likely. Suggestion: 1. Follow-up stool C. difficile PCR 2. Add Cholestyramine 1 packet 4 times a day via her G-tube (need to give 1 hour before or 2 hours after every dose of p.o. Vancomycin) 3. GI evaluation if her C. difficile PCR is negative 4. Continue p.o. Vancomycin pending above
[2017-12-21 15:15] VITALS: BP 100/60
--- NOTE | 2017-12-21 15:42 | PN- Student ---
Cl Hancock 12/21/17 1455: Subjective Subjective: Pt states continuing improvement today and is eager for discharge. She is AxO x3. No adverse events overnight as well as no diarrhea from noon of yesterday - 4am today. From 4am to present she has had 5 small, nonbloody diarrhea-like BMs. She currently reports mild point tenderness in the periumbilical and right lumbar quadrants with associated nausea, which she thinks relates to her increased tube feed. She also spit up a small volume of post residual. She is ambulating with ease. She denies SOB, chest pain, fever, chills, or hematochezia. Stool sample was finally collected today and sent for C. diff PCR analysis, will hopefully be back by tomorrow afternoon. Foot IV has been removed and Dr. Garnett may attempt a venous draw from her right foot today as CBC, BEP, etc have not been done for 2-3 days due to pt's lack of accessible veins. Objective Objective: GEN: AxO x3, Cooperative, NAD Skin: Blown veins in both antecubital fossae, scattered ecchymoses throughout, nl skin turgor HEENT: Atraumatic, no LAD CARDIO: RRR, nl S1/S2, no appreciable murmurs PULM: CTA b/l, nl breath sounds, no rales or rhonchi EXT: PT and DP pulses 1+ b/l Results Results: Laboratory Tests 12/21/17 1005: C. difficile Tox B Gene Pending Assessment/Plan Assessment: 67 yr F with 30 yr hx of HIV with a recent CD4 count of 315 in September and pmhx of AML (remission s/p chemo in 2007), throat cancer 2017 s/p surgery [place] currently with PEG, COPD, chronic back pain for which she takes morphine PRN, and recent C. diff 7 weeks ago tx with Vanco presented with intractable nonbloody diarrhea 4 days ago, as well as possible suicidal ideation. Currently her sxs have improved with ~half-dozen small bouts of diarrhea per day after continuing vanco tx. She also has mild point tenderness in periumbilical and right lumbar quadrants and spit up a small volume of residual after having her tube ramped up to her baseline. She denies any present suicidal ideation. Recent labs were significant for a TSH of 43.9. Plan: Problem List: 1. Diarrhea with hx of recent C. diff 2. PEG tube and calorie intake 3. Hypothyroidism 4. HIV with recent CD4 of 315 5. Suicidal Ideation #Diarrhea with hx of recent C. diff - Stool culture neg - C. diff EIA neg - Stool sample for C. diff PCR received today; still pending - Cont Vanco tx 125 mg Q6 - Dr. Noel recommends cholestyramine - may interfere with vanco tx? - Cessation of morphine and HIV contributing to diarrhea? #PEG tube and calorie intake - Cease continuous feed - Revert to baseline bolus feed of five 8 oz cans per day with water irrigation in between each - Monitor nausea and abd pain #Hypothyroidism - Cont Levothyroxine 25 mcg per day, at least 1 hour before feeding - f/u in 6-8 weeks to montior T3/T4 response #HIV with recent CD4 of 315 - Cont Genvoya - Monitor CD4 every 12 months as count is between 300-500 #Suicidal Ideation - No current suicidal ideation or intent; not deemed a risk to self per Dr. Dunia Zamora - Recommend locked medicine cabinent to daughter - cont citalopram 20 mg daily as well as mirtazapine 7.5 mg before bed each night DVT prophylaxis: Enoxaparin and aspirin Fredrick Garntet MD 12/25/17 0746: Attending MD Review Statement Attending Sign Off Attending Cosign Statement: I have: examined this patient, reviewed aval EMR data, discussd w/resident/PA/ FERRIS WHEEL ATTENDANT, discussed mgmt plan w/yovani, discussed mgmt plan w/CM, discussed mgmt plan w/ pt, agreed w/resident/PA/FERRIS WHEEL ATTENDANT, amended to note. Other Findings: Agree with the above assessment of care.
--- NOTE | 2017-12-21 18:45 | Discharge Summary ---
"Visit Information Visit Dates Admission Date: 12/17/17 Discharge Date: 12/23/2017 Hospital Course Course Attending Physician: Fredrick Garnett MD Primary Care Physician: Bc Meza APRN Consulting Request: 1 Consulting Specialty: Pulmonary Disease Consulting Physician: Darrel William MD Reason for Consult: Positive slowly enlarging right lung lesion Consulting Request: 2 Consulting Specialty: Infectious Disease Consulting Physician: Lion Noel MD Reason for Consult: Chronic diarrhea Consulting Request: 3 Consulting Specialty: Psychiatry Consulting Physician: Nakita Colbert MD Reason for Consult: Suicidal Ideation Consulting Request: 4 Consulting Specialty: Gastroenterology Consulting Physician: Avtar Montez MD Reason for Consult: Chronic diarrhea Hospital Course: 67 yo female with HIV diagnosed 30 years ago, being treated for Erinn with CD4 count of, 315 recently diagnosed with C. difficile colitis was brought into the ED by her daughter for intractable diarrhea. Diarrhea: C. difficile PCR and EIA results came back negative (PCR was done after treatmnet with vancomycin she was on vancomycin when she came in). ID and GI consult was done. Diarrhea decreased once Cholestyramine was started. Plan: Cholestyramine is given and Vancomycine will be tapered as per ID consult. HIV Disease: She is back on her home mediacations for HIV. Plan: Continue current meds. Altered Mental Status: She is back to her normal baseline after hydration with IV fluids. Plan: We will follow her condition closely. Phsychiatrist has recommended Mirtazapine and Citalopram, She had suicidal ideation. Pulmonary Nodule: Per monitor and storage bin tender consult it is probably a primary malignancy based on prior PET /CT. Plan: She will follow up as an outpatient with monitor and storage bin tender. Hypothyroidism: She was found to have a TSH of 43 during admission, with a low T4, she was started on levothyroxine 25 mcg. TSH, T4 should be repeated in 6 weeks after discharge. Allergies: Coded Allergies: hydrocodone (ITCH 12/17/17) oxycodone (From PERCOCET) (ITCH 09/02/16) tramadol (ITCH 12/17/17) Disposition Summary Disposition Principal Diagnosis: Chronic diarrhea Additional Diagnosis: HIV Pulmonary nodule Hypothyroidism Depression/anxiety COPD History of suicidal ideation Discharge Disposition: home health services Discharge Instructions General Discharge Information Code Status: Do Not Resucitate/Intubat Patient's Diet: N.p.o. with G-tube feeds only, low residual Patient's Activity: As tolerated Follow-Up Instructions/Appts: Please follow up with your pcp within 1 week and discuss possible port placement Please follow up with your firer watertender within 1 week Please follow up with your monitor and storage bin tender for further evaluation of the pulmonary nodules Please take the vancomycin as prescribed Please note the cholestyramine should be taken either 1 hour before or after the vancomycin Please take the levothyroxine as prescribed in the morning on an empty stomach Please follow up with your pcp for repeat blood work including to test for your thyroid levels Medications at Discharge Discharge Medications: Stop taking the following medications: Loperamide HCl (Loperamide) 2 MG CAPSULE ORAL Q4H as needed for DIARRHEA Continue taking these medications: Propranolol HCl (Propranolol HCl) 20 MG TABLET 1 Tablet G TUBE Every Morning Comments: Last Taken:12/23/17 Time:9:46 AM Elviteg/Samia/Emtric/Tenofo Ala (Genvoya Tablet) 150 MG-150 MG-200 MG-10 MG TABLET 1 Tablet G TUBE Every Morning Qty = 30 Comments: LAST GIVEN 11/24/17 @ 1000 Gabapentin (Gabapentin) 300 MG CAPSULE 1 Capsule G TUBE THREE TIMES DAILY Qty = 90 Comments: Last Taken:12/23/17 Time:9:45 AM Alendronate Sodium (Alendronate Sodium) 70 MG TABLET 1 Tablet G TUBE EVERY MONDAY Qty = 12 Instructions: in the morning, at least 30 minutes before the first food, beverage, or medication of the day Comments: NOT GIVEN IN HOSPITAL Ondansetron HCl (Ondansetron HCl) 4 MG TABLET 1 Tablet G TUBE Q8H as needed for NAUSEA Qty = 30 Cevimeline HCl (Cevimeline HCl) 30 MG CAPSULE 1 Capsule G TUBE THREE TIMES DAILY Qty = 90 Mirtazapine (Mirtazapine) 45 MG TABLET 1 Tablet G TUBE TAKE AT BEDTIME Qty = 90 Comments: Last Taken:12/22/17 Time:8:30 PM 7.5 MG GIVEN. Morphine Sulfate (Morphine Sulfate) 15 MG TABLET 1 Tablet G TUBE Q4H as needed for PAIN Qty = 84 Comments: LAST GIVEN 11/24/17 @ 1000 Citalopram Hydrobromide (Celexa) 20 MG TABLET 1 Tablet G TUBE DAILY Comments: Last Taken:12/23/17 Time:9:45 AM Metoclopramide HCl (Reglan) 10 MG TABLET 1 Tablet ORAL 1430 Valacyclovir HCl (Valacyclovir) 500 MG TABLET 1 Tablet G TUBE DAILY Comments: Last Taken:12/23/17 Time:9:46 AM Furosemide (Lasix) 20 MG TABLET 0.5 Tablet G TUBE Every Morning Comments: LAST GIVEN 11/23/17 @ 1700 Loratadine (Claritin) 10 MG TABLET 1 Tablet G TUBE DAILY Comments: Last Taken:12/23/17 Time:945 AM Montelukast Sodium (Montelukast Sodium) 10 MG TABLET 1 Tablet G TUBE DAILY Comments: Last Taken:12/23/17 Time:9:44 AM Nutritional Supplement (Osmolite 1.5 Nathaniel) 237 ML LIQUID 80 Milliliters G TUBE QHOUR Comments: Last Taken:12/23/17 Time:9:00 AM Acetaminophen (Acetaminophen) 325 MG TABLET 1-2 Tablet G TUBE Q8H as needed for PAIN Comments: Last Taken:12/22/17 Time:8:47 PM Ascorbic Acid (C-1000) 1,000 MG TABLET 1 Tablet G TUBE DAILY Albuterol Sulfate (Proair Hfa) 90 MCG HFA.AER.AD 2 Puff Inhale through mouth Q4H as needed for SOB Aspirin (Aspirin*) 81 MG TAB.CHEW 1 Tablet G TUBE DAILY Comments: Last Taken:12/23/17 Time:9:46 AM diphenhydrAMINE HCl (Benadryl) 25 MG CAP 1 Capsule G TUBE Every night Famotidine (Famotidine) 20 MG TABLET 1 Tablet G TUBE DAILY Comments: Last Taken:12/23/17 Time:9:44 AM Start taking the following new medications: Levothyroxine Sodium (Synthroid) 25 MCG TABLET 1 Tablet ORAL DAILY BEFORE BREAKFAST Qty = 60 No Refills Instructions: Take in the morning on an empty stomach without food or other medications. . Comments: Last Taken:12/23/17 Time:5:30 AM Cholestyramine/Aspartame (Cholestyramine Light Packet) 4 GRAM POWD.PACK 1 Packet ORAL 4 TIMES A DAY Qty = 60 No Refills Instructions: Take 1 hour before or after taking the vancomycin . Comments: Last Taken:12/23/17 Time:9|48 AM Vancomycin HCl (Vancomycin HCl) 125 MG CAPSULE 1 Tablet G TUBE SEE INSTRUCTIONS Qty = 9 No Refills Instructions: Take 1 tab every other day from 12/24 to 12/30 Take 1 tab every third day from 12/31 to 01/13 The following medications have been changed: Old: Vancomycin HCl (Vancomycin HCl) 125 MG CAPSULE 125 Milligram ORAL SEE COMMENT Qty = 69 New: Vancomycin HCl (Vancomycin HCl) 125 MG CAPSULE 125 Milligram ORAL SEE INSTRUCTIONS Qty = 69 Instructions: .. Comments: 11/25-: Take 1 tablet, every 6 hours 12/05-: Take 1 tablet, every 12 hours 12/12-: Take 1 tablet, once daily 12/19-12/25: Take 1 tablet, once every other day 12/26-: Take 1 tablet, once every 3 days can substitute with liquid form as well LAST GIVEN 11/24/17 @ 1000 Copies To: Bc Meza APRN"
[2017-12-21 22:14] VITALS: BP 110/70
--- NOTE | 2017-12-22 06:39 | PN- Housestaff ---
See Addendum Subjective Follow-up For: Chronic diarrhea Depression/anxiety Subjective: I saw the patient this morning. She feels better overall and she states that she had TWO episode of bowel movement this morning and none through the night. She reports some nausea this morning which was resolved after taking medication. Review of Systems Constitutional: Reports: see HPI. Objective Last 24 Hrs of Vital Signs/I&O Vital Signs Date Time Temp Pulse Resp B/P B/P Pulse O2 O2 Flow FiO2 Mean Ox Delivery Rate 12/22 0641 98.0 65 20 102/60 99 / 2214 97.3 64 19 110/70 99 Room Air 12/21 1515 97.6 54 20 100/60 98 / 0957 63 102/70 Intake & Output 12/22 1600 12/22 0800 12/22 0000 Intake Total 120 300 Output Total 225 Balance -105 300 Intake, Oral 0 Intake, Tube 240 Feeding Intake, Tube 120 60 Irrigant Number 3 1 Bowel Movements Output, Urine 225 Physical Exam General Appearance: Alert, Oriented X3, Cooperative, No Acute Distress Skin: No Rashes Skin Temp/Moisture Exam: Warm/Dry Sepsis Skin Exam (color): Normal for Ethnicity Assessment/Plan Assessment: Assessment: She was able to obtain a stool sample to be sent for C. difficile PCR, which was negative. We start cholestyramine from yesterday. Which has reduced the diarrhea. She has COPD and emphysema but has never been on O2 as an outpatient. She is ready to be discharged. Diarrhea: C. difficile PCR results came back negative. GI consult was done. Plan: Cholestyramine is started and Vancomycine will be tapered as per ID consult. HIV Disease: She is back on her home mediacations for HIV. Plan: Continue current meds. Altered Mental Status: She is back to her normal baseline. Plan: We will follow her condition closely. Phsychiatrist has recommended Mirtazapine and Citalopram. Pulmonary Nodule: Per flatbed stitcher consult it is probably a primary malignancy based on prior PET /CT. Plan: She will follow up as an outpatient with flatbed stitcher. Problem List: 1. Diarrhea 2. AIDS 3. Depression 4. History of suicide attempt Pain Ratin Pain Location: NA Pain Goal: Remain pain free Pain Plan: NA Tomorrow's Labs & Rationales: na Consulting Request: Consulting Specialty: Psychiatry Consulting Physician: Nakita Colbert MD Reason for Consult: Suicidal Ideation
[2017-12-22 06:41] VITALS: BP 102/60
[2017-12-22 06:46] LABS: C.DIFFICILE TOXIN B QL PCR NOT DETECTED (NOT DETECTED)
[2017-12-22 12:43] LABS: ABSOLUTE BASOPHIL COUNT 0 /CUMM (0.0-0.2); ABSOLUTE EOSINOPHIL COUNT 0.1 /CUMM (0.0-0.7); ABSOLUTE LYMPH COUNT 1.2 /CUMM (1.2-3.4); ABSOLUTE MONOCYTE COUNT 0.5 /CUMM (0.10-0.60); EOSINOPHIL % 1.5 % (0-5); MEAN CORPUSCULAR HGB 32.9 PG (27.0-31.0); MEAN CORPUSCULAR HGB CONC 33.2 G/DL (33.0-37.0)
--- NOTE | 2017-12-22 12:48 | PN- Infect Dx ---
Subjective Subjective: Afebrile. She reports vomiting earlier today and continues to have diarrhea, with 11 stools reported yesterday and 6 overnight. She reports no abdominal pain. Objective Last 24 Hrs of Vital Signs/I&O Vital Signs Date Time Temp Pulse Resp B/P B/P Pulse O2 O2 Flow FiO2 Mean Ox Delivery Rate 12/22 0901 60 102/60 / 0641 98.0 65 20 102/60 99 / 2214 97.3 64 19 110/70 99 Room Air 12/21 1515 97.6 54 20 100/60 98 Intake & Output 12/22 1600 12/22 0800 12/22 0000 Intake Total 120 300 Output Total 1 225 Balance -1 -105 300 Intake, Oral 0 Intake, Tube 240 Feeding Intake, Tube 120 60 Irrigant Number 3 3 1 Bowel Movements Output, Urine 1 225 Physical Exam Other Physical Findings: She appears comfortable in no acute distress Abdomen is soft, nontender with positive bowel sounds Results Last 24 Hours of Lab Results: Laboratory Tests 12/22 1215 Chemistry Sodium Pending Potassium Pending Chloride Pending Carbon Dioxide Pending Anion Gap Pending BUN Pending Creatinine Pending BUN/Creatinine Ratio Pending Free T4 Pending Hematology CBC w Diff Pending WBC Pending RBC Pending Hgb Pending Hct Pending MCV Pending MCH Pending MCHC Pending RDW Pending Plt Count Pending MPV Pending Last 24 Hours of Guy Results: Stool C. difficile PCR December 21 negative Assessment/Plan ID Impression: Persistent diarrhea, with another episode of emesis this morning, of unclear etiology, with her stool C. difficile PCR negative. It now seems less likely that her diarrhea is secondary to C. difficile, though the possibility of a false negative toxin and PCR must be considered, particularly as she has been on Vancomycin for several weeks. Given her complaints of chronic diarrhea for the past year other etiologies must be considered and further evaluation may be needed. An opportunistic infection, such as cryptosporidium, microsporidium, Cyclospora, CMV or DRAKE, secondary to her HIV status, is possible, though her recent CD4 count of 365 makes this less likely. Suggestion: 1. Would maintain Special contact isolation 2. GI evaluation 3. Continue Cholestyramine 4. Resume Vancomycin taper and decrease to 125 mg p.o. every 48 hours for 1 week, followed by 125 mg p.o. every 72 hours for [address] Lugo is covering over the weekend
[2017-12-22 13:06] LABS: BASOPHIL % 0.4 % (0.0-2.0); GRANULOCYTE % 73.1 % (42.2-75.2); MEAN CORPUSCULAR VOLUME 99.3 FL (81.0-99.0); MEAN PLATELET VOLUME 9.8 FL (7.4-10.4); PLATELET COUNT 290 /CUMM (130-400); RBC DISTRIBUTION WIDTH 14.1 % (11.5-14.5); RED BLOOD CELL CT 3.85 /CUMM (4.20-5.40); WHITE BLOOD CELL COUNT 6.9 /CUMM (4.8-10.8)
[2017-12-22 13:11] LABS: HEMATOCRIT 38.2 % (37-47)
--- NOTE | 2017-12-22 14:02 | Cons- Gastroenterology ---
General Information and HPI Consulting Request Date of Consult: 12/22/17 Requested By: Fredrick Garnett MD Reason for Consult: Chronic diarrhea. Source of Information: patient Exam Limitations: poor historian History of Present Illness: Ms. 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 She has been having intermittent diarrhea for the past year and she notes her baseline is having about 3-5 loose stools a day. In July she was diagnosed with c diff colitis treated with vanco and then she was prescibed a one month vanco taper when she had recurrent symptoms and this apparently has been helping , but a few days before admission her diarrhea worsened with her having a bowel movement about once an hour. She has not had any abdominal pain with the diarrhea and it isn't bloody. She is without any upper abdominal pain with eating, heartburn, vomiting, or dysphagia. She hasn't been using imodium at home. She has not had any fevers. On presentation she was afebrile and febrile. She had a ct scan in the ER which was negative for any acute intra- abdominal pathology and was also negative for any bowel wall abnormalities. She had repeat stool studies sent which were negative for infection including a c diff PCR at which point a GI consult was called for persistent symptoms. She notes that so far today she has had 2 loose stools which she feels is slighly improved from when she was admitted. She has been having some nausea, but she hasn't had any significant vomiting. She was also just started on imodium and questrin. Allergies/Medications Allergies: Coded Allergies: hydrocodone (ITCH 12/17/17) oxycodone (From PERCOCET) (ITCH 09/02/16) tramadol (ITCH 12/17/17) Home Med List: Acetaminophen 325 MG TABLET 1-2 TAB G TUBE Q8H PRN PAIN (Reported) Albuterol Sulfate (Proair Hfa) 90 MCG HFA.AER.AD 2 PUF INH Q4H PRN SOB ( Reported) Alendronate Sodium 70 MG TABLET 1 TAB G TUBE QSUN OSTEOPOROSIS (Reported) in the morning, at least 30 minutes before the first food, beverage, or medication of the day Ascorbic Acid (C-1000) 1,000 MG TABLET 1 TAB G TUBE DAILY SUPPLEMENT ( Reported) Aspirin (Aspirin*) 81 MG TAB.CHEW 1 TAB G TUBE DAILY HEART/BLOOD (Reported) Cevimeline HCl 30 MG CAPSULE 1 CAP G TUBE TID SALIVA (Reported) Citalopram Hydrobromide (Celexa) 20 MG TABLET 1 TAB G TUBE DAILY MENTAL HEALTH (Reported) diphenhydrAMINE HCl (Benadryl) 25 MG CAP 1 CAP G TUBE QPM ITCHING (Reported) Elviteg/Samia/Emtric/Tenofo Ala (Genvoya Tablet) 150 MG-150 MG-200 MG-10 MG TABLET 1 TAB G TUBE QAM ANTIVIRAL (Reported) Famotidine 20 MG TABLET 1 TAB G TUBE DAILY GI (Reported) Furosemide (Lasix) 20 MG TABLET 0.5 TAB G TUBE QAM EDEMA (Reported) Gabapentin 300 MG CAPSULE 1 CAP G TUBE TID NERVE PAIN (Reported) Loperamide HCl (Loperamide) 2 MG CAPSULE 1 CAP PO Q4H PRN DIARRHEA (Reported) Loratadine (Claritin) 10 MG TABLET 1 TAB G TUBE DAILY ALLERGIES (Reported) Metoclopramide HCl (Reglan) 10 MG TABLET 1 TAB PO 1430 GI (Reported) Mirtazapine 45 MG TABLET 1 TAB G TUBE QHS SLEEP (Reported) Montelukast Sodium 10 MG TABLET 1 TAB G TUBE DAILY ALLERGIES/RESP (Reported) Morphine Sulfate 15 MG TABLET 1 TAB G TUBE Q4H PRN PAIN (Reported) Nutritional Supplement (Osmolite 1.5 Nathaniel) 237 ML LIQUID 80 ML G TUBE QHOUR NUTRITIONAL FEEDING (Reported) Ondansetron HCl 4 MG TABLET 1 TAB G TUBE Q8H PRN NAUSEA (Reported) Propranolol HCl 20 MG TABLET 1 TAB G TUBE QAM MIGRAINES (Reported) Valacyclovir HCl (Valacyclovir) 500 MG TABLET 1 TAB G TUBE DAILY HERPES ( Reported) Vancomycin HCl 125 MG CAPSULE 125 MG PO SEE COMMENT C.Diff Colitis . Current Medications: Current Medications Sig/Solitario Start time Last Medication Dose Route Stop Time Status Admin Acetaminophen 640 MG Q6P PRN 12/21 2030 AC 12/22 PO 1110 Acetaminophen 640 MG ONCE ONE 12/21 1630 DC 12/21 PO 12/21 1631 1639 Acetaminophen 650 MG ONCE ONE 12/21 1615 CAN PO 12/21 1800 Acetaminophen 1,000 MG Q6P PRN 12/18 0130 AC 12/20 N/A 1 UNIT IV 1800 Aspirin 81 MG DAILY 12/18 09 AC 12/22 PO 0901 Cholestyramine Resin 1 PAC 4 TIMES/DAY 12/21 1700 AC 12/22 PO 1313 Citalopram 20 MG DAILY 12/18 0900 AC 12/22 Hydrobromide PO 0859 Enoxaparin Sodium 40 MG DAILY 12/18 0900 AC 12/22 SC 0902 Famotidine 20 MG DAILY 12/18 09 AC 12/22 PO 0900 Gabapentin 300 MG TID 12/18 0011 AC 12/22 PO 1312 Levothyroxine Sodium 0.025 MG DAILY AC 12/21 07 AC 12/22 PO 0600 Loperamide HCl 2 MG Q3P PRN 12/22 0930 DC 12/22 PO 1112 Loratadine 10 MG DAILY 12/18 09 AC 12/22 PO 0900 Mirtazapine 7.5 MG AT BEDTIME 12/18 2100 AC 12/21 PO 2005 Montelukast Sodium 10 MG DAILY 12/18 09 AC 12/22 PO 0900 Nystatin 5 ML 4 TIMES/DAY 12/18 1311 DC 12/21 PO 01/01 0901 2005 Ondansetron HCl 4 MG ONCE ONE 12/22 0615 DC 12/22 PO 12/22 0616 0612 Ondansetron HCl 4 MG ONCE ONE 12/21 1600 DC 12/21 PO 12/21 1601 1639 Patient Medication 1 ED ONE ONE 12/21 1430 DC Teaching ED 12/21 1431 Propranolol HCl 20 MG QAM 12/18 0900 AC 12/22 PO 0901 Sodium Chloride 2 SPRAY TID 12/20 1452 AC 12/22 FABY 1313 Valacyclovir HCl 500 MG DAILY 12/18 09 AC 12/22 PO 0903 Vancomycin HCl 125 MG Q48 12/24 09 AC PO Vancomycin HCl 125 MG Q6 12/19 1200 DC 12/22 PO 0600 Zinc Oxide 1 SORAYA BID 12/20 09 AC 12/22 TOP 0922 Past History Travel History Traveled to [place] past 21 day No Medical History Neurological: migraine EENT: allergies Cardiovascular: hypertension Respiratory: asthma, bronchitis, COPD, emphysema, pneumonia Gastrointestinal: GERD Hepatic: hepatitis A Renal: NONE Musculoskeletal: disk herniation, osteoarthritis Psychiatric: anxiety, depression Endocrine: NONE Blood Disorders: anemia Cancer(s): head/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 FH: breast cancer FH: diabetes mellitus Psychosocial History Who Do You Live With? child (daughter) Services at Home: Nursing Smoking Status: Never Smoked ETOH Use: denies use Illicit Drug Use: denies illicit drug use Functional Ability ADLs Independent: dressing, eating, toileting, bathing. Ambulation: walker Employment History Employment: Retired Review of Systems Review of Systems Constitutional: Reports: malaise. Denies: fever. EENTM: Denies: no symptoms. Cardiovascular: Denies: no symptoms. Respiratory: Reports: cough. Denies: hemoptysis, orthopnea, short of breath. GI: Reports: see HPI. Genitourinary: Denies: no symptoms. Musculoskeletal: Denies: no symptoms. Skin: Denies: no symptoms. Neurological/Psychological: Reports: depressed. Hematologic/Endocrine: Denies: no symptoms. Immunologic/Allergic: Reports: HIV/AIDS. All Other Systems: Reviewed and Negative Exam & Diagnostic Data Vital Signs and I&O Vital Signs Date Time Temp Pulse Resp B/P B/P Pulse O2 O2 Flow FiO2 Mean Ox Delivery Rate 12/22 0901 60 102/60 12/22 0641 98.0 65 20 102/60 99 /02 2214 97.3 64 19 110/70 99 Room Air 12/21 1515 97.6 54 20 100/60 98 Intake & Output 12/22 1600 12/22 0400 12/21 1600 12/21 0400 12/20 1600 12/20 0400 Intake Total 255 726 5228 300 1080 360 Output Total 226 20 Balance -378 504 1968 300 1080 360 Intake, IV 0 Intake, Oral 0 0 Intake, Other 60 Intake, Tube 240 840 240 960 240 Feeding Intake, Tube 120 60 180 120 120 Irrigant Number 6 1 10 5 Bowel Movements Output, 20 Emesis Output, Urine 226 Physical Exam General Appearance: no apparent distress, alert, awake, thin Head: atraumatic, normal appearance Eyes: Bilateral: normal appearance. Ears, Nose, Throat: normal pharynx, normal ENT inspection, hearing grossly normal Neck: normal inspection, supple, full range of motion Respiratory: normal breath sounds, chest non-tender, no respiratory distress Cardiovascular: regular rate/rhythm Gastrointestinal: normal bowel sounds, soft, non-tender, PEG c/d/i Rectal: deferred Back: normal inspection, normal range of motion Extremities: normal inspection, no edema Neurologic/Psych: no motor/sensory deficits, awake, alert, oriented x 3 Skin: intact, normal color, warm/dry Results Pertinent Lab Results: Laboratory Tests 12/22 12/21 1215 1005 Chemistry Sodium (137 - 145 mmol/L) 137 Potassium (3.5 - 5.1 mmol/L) 4.4 Chloride (98 - 107 mmol/L) 111 H Carbon Dioxide (22 - 30 mmol/L) 17 L Anion Gap (5 - 16) 9 BUN (7 - 17 mg/dL) 12 Creatinine (0.5 - 1.0 mg/dL) 0.5 Estimated GFR (>60 ml/min) > 60 BUN/Creatinine Ratio (7 - 25 %) 24.0 Free T4 (0.78 - 2.44 ng/dL) 0.69 L Hematology CBC w Diff NO MAN DIFF REQ WBC (4.8 - 10.8 /CUMM) 6.9 RBC (4.20 - 5.40 /CUMM) 3.85 L Hgb (12.0 - 16.0 G/DL) 12.7 Hct (37 - 47 %) 38.2 MCV (81.0 - 99.0 FL) 99.3 H MCH (27.0 - 31.0 PG) 32.9 H MCHC (33.0 - 37.0 G/DL) 33.2 RDW (11.5 - 14.5 %) 14.1 Plt Count (130 - 400 /CUMM) 290 MPV (7.4 - 10.4 FL) 9.8 Gran % (42.2 - 75.2 %) 73.1 Lymphocytes % (20.5 - 51.1 %) 17.7 L Monocytes % (1.7 - 9.3 %) 7.3 Eosinophils % (0 - 5 %) 1.5 Basophils % (0.0 - 2.0 %) 0.4 Absolute Granulocytes (1.4 - 6.5 /CUMM) 5.0 Absolute Lymphocytes (1.2 - 3.4 /CUMM) 1.2 Absolute Monocytes (0.10 - 0.60 /CUMM) 0.5 Absolute Eosinophils (0.0 - 0.7 /CUMM) 0.1 Absolute Basophils (0.0 - 0.2 /CUMM) 0 Serology C. difficile Tox B Gene (NOT DETECTED) NOT DETECTED 12/20 12/20 12/20 0947 0932 0600 Chemistry Sodium Cancelled Potassium Cancelled Chloride Cancelled Carbon Dioxide Cancelled Anion Gap Cancelled BUN Cancelled Creatinine Cancelled BUN/Creatinine Ratio Cancelled TSH Cancelled Free T4 Cancelled Hematology CBC w Diff Cancelled WBC Cancelled RBC Cancelled Hgb Cancelled Hct Cancelled MCV Cancelled MCH Cancelled MCHC Cancelled RDW Cancelled Plt Count Cancelled MPV Cancelled Total Abs Lymphocytes Cancelled Immunology Lymphocyte Subset Cmmnt Cancelled Absolute CD3 Count Cancelled % CD3 Mature T-Lymphs Cancelled % CD4 [place] Cancelled Absolute CD4 Count Cancelled T-Help/Suppress Ratio Cancelled % CD8 Suppressor Cancelled Absolute CD8 Count Cancelled > STOOL CULTURE Preliminary 12/21/17 Mixed ivis after 2 days > RULE OUT YERSINIA CULTURE Final 12/21/17 NO YERSINIA ISOLATED > VIBRIO CULTURE Preliminary 12/21/17 Mixed ivis after 2 days > SHIGA TOXIN 1 AKA EHEC Final 12/20/17-1499 NEGATIVE; NOT DETECTED. > SHIGA TOXIN 2 AKA EHEC Final 12/20/17-1499 NEGATIVE; NOT DETECTED. > STOOL CULTURE Final 12/20/17 Mixed ivis: No Enteric Pathogens Isolated. No Salmonella, Shigella, or Campylobacter Isolated. Please order Yersinia or Vibrio separately if suspected. > C. DIFFICILE TOXIN A & B EIA Final 12/18/170 NEGATIVE FOR CLOSTRIDIUM DIFFICILE TOXINS A & B BY EIA > SHIGA TOXIN 1 AKA EHEC Final 12/18/17144 NEGATIVE; NOT DETECTED. > SHIGA TOXIN 2 AKA EHEC Final 12/18/17144 NEGATIVE; NOT DETECTED. Imaging/Other Studies: SERVICE DATE: 12/17/17 EXAM TYPE: CAT - CT ABD & PELVIS W/O IV CONTRAS EXAMINATION: CT ABDOMEN AND PELVIS WITHOUT CONTRAST CLINICAL INFORMATION: Abdominal pain. COMPARISON: November 20, 2017. TECHNIQUE: Contiguous axial thin section helical images of the abdomen and pelvis were performed without oral or IV contrast. The data set was reformatted in the coronal and sagittal planes and reviewed on an independent workstation. DLP: 238 mGy-cm. FINDINGS: The visualized lung bases are clear. The visualized portions of the heart are unremarkable. A G-tube is in place. The liver is of normal size and attenuation without focal lesions nor intrahepatic biliary ductal dilation. A normal gallbladder is identified. There is no wall thickening or discernible pericholecystic fluid. The spleen, pancreas, adrenal glands are unremarkable. Both kidneys are of normal size and attenuation without hydronephrosis or nephrolithiasis. There is no abdominal free fluid. There is neither mesenteric nor retroperitoneal lymphadenopathy. Normal unopacified loops of small and large bowel are identified. There is no pelvic free fluid. The urinary bladder is unremarkable. There is neither pelvic nor inguinal lymphadenopathy. Bone windows: Neither sclerotic nor lytic bone lesions are identified. There is disc height loss at L4/L5 with stable sclerotic changes on either side of the disc space. IMPRESSION: No evidence for acute abdominal or pelvic inflammatory or infectious processes. Assessment/Plan Assessment/Recommendations: Assessment: Ms. Camilo is a 67 year old female with HIV for which she is on anti- viral therapy as an outpatient with a CD4 count >200 when last checked in September who has had chronic diarrhea for the past year with an exacerbation of this over the past week or so, but considering the negative stool studies I suspect the chronic diarrhea is functional and the acute symptoms may have been secondary to a self limited bout of viral gastroenteritis. As she does have HIV opportunistic infections should be considered, but she presumably has been on anti-viral therapy so if her repeat CD4 count is still over 200 this is very unlikely. She has never had a prior colonoscopy so this should be pursued, but if her diarrhea is able to be controlled with anti-motility agents this can likely be pursued as an outpatient. Recommedations: 1. Follow up official stool study results and if she is still having diarrhea would check for o and p again. 2. Continue questran 3. Follow up CD4 count 4. Use anti-emetics (zofran which can be constipating) as needed. 5. Continue vanco taper and if diarrhea persists through the weekend will then consider a flexible sigmoidoscopy on Monday, but if the diarrhea continues to improve she can be discharged over the weekend to finish the vanco taper at home. I will continue to follow this patient and make further recommendations based on her clinical course and results of repeat blood work and stool testing. Problem List: 1. Diarrhea 2. Nausea and vomiting Copies To: Bc Meza APRN Consult Acknowledgment - Thank you for your consult request.
[2017-12-22 14:28] VITALS: BP 98/60
[2017-12-22 16:00] VITALS: BP 98/60
[2017-12-22] MEDS ORDERED: CHOLESTYRAMINE L4 GM PO (17:20)
[2017-12-22] MEDS ORDERED: SYNTHROID25 MCG PO (17:20)
[2017-12-22] MEDS ORDERED: VANCOMYCIN HCL125 MG G TUBE (17:20)
--- NOTE | 2017-12-22 17:24 | Patient Discharge Instructions ---
Discharge Instructions General Discharge Information You were seen/treated for: Diarrhea Pulmonary nodules Special Instructions: Please follow up with your pcp within 1 week and discuss possible port placement Please follow up with your italian lecturer within 1 week Please follow up with your travel occupational therapist for further evaluation of the pulmonary nodules Please take the vancomycin as prescribed Please note the cholestyramine should be taken either 1 hour before or after the vancomycin Please take the levothyroxine as prescribed in the morning on an empty stomach Please follow up with your pcp for repeat blood work including to test for your thyroid levels Diet Continue normal diet: No Recommended Diet: Low Residue Activity Full Activity/No Limits: No Activity Self Limited: Yes Acute Coronary Syndrome Inclusion Criteria At DC or during hospital stay patient has or had the following: ACS DIAGNOSIS No Discharge Core Measures Meds if any: Prescribed or Continued at Discharge Meds if any: NOT Prescribed or Continued at Discharge Congestive Heart Failure Inclusion Criteria At DC or during hospital stay patient has or had the following: CHF DIAGNOSIS No Discharge Core Measures Meds if any: Prescribed or Continued at Discharge Meds if any: NOT Prescribed or Continued at Discharge Cerebrovascular accident Inclusion Criteria At DC or during hospital stay patient has or had the following: CVA/TIA Diagnosis No Discharge Core Measures Meds if any: Prescribed or Continued at Discharge Meds if any: NOT Prescribed or Continued at Discharge Venous thromboembolism Inclusion Criteria VTE Diagnosis No VTE Type NONE VTE Confirmed by (Test) NONE Discharge Core Measures - Per Current guidelines, there needs to be overlap - treatment for the first 5 days of Warfarin therapy. - If discharged on Warfarin prior to 5 days of - overlap therapy, the patient will need to be - assessed for post discharge needs including - *Post discharge parental anticoagulation - *Warfarin and/or parental anticoagulation education - *Follow up date to check INR post discharge At least 5 days overlap therapy as Inpatient No Meds if any: Prescribed or Continued at Discharge Note: Overlap Therapy is Warfarin and Anticoagulant Meds if any: NOT Prescribed or Continued at Discharge
[2017-12-22 20:46] VITALS: BP 100/72
[2017-12-23 06:12] VITALS: BP 98/70
[2017-12-23 09:46] VITALS: BP 110/78
--- NOTE | 2017-12-23 10:57 | PN- Att Addend ---
Attending Addendum Attending Brief Note The patient was seen and discussed with house staff, nursing. C-diff PCR negative, however has been on treatment. Diarrhea improved on Questran with only 3 BM today. House staff discussed with daughter. OK to discharge today on Vanco taper as per ID. Will need titration of Levothyroxine for hypothyroidism and further evaluation of PET positive lung nodule as OP. Case management advised to increase home care services and nursing agency will arrange. CONSULTANTS Infectious disease Dr Noel Pulmoanry Dr William Gastroenterology Dr Montez FOLLOW UP PCP in 1 week of discharge Gastroenterology in 3-4 weeks if diarrhea persists Pulmonary Dr William in 2 weeks Admission Lab Results I reviewed the following labs: Laboratory Tests 12/22 1215 Chemistry Sodium (137 - 145 mmol/L) 137 Potassium (3.5 - 5.1 mmol/L) 4.4 Chloride (98 - 107 mmol/L) 111 H Carbon Dioxide (22 - 30 mmol/L) 17 L Anion Gap (5 - 16) 9 BUN (7 - 17 mg/dL) 12 Creatinine (0.5 - 1.0 mg/dL) 0.5 Estimated GFR (>60 ml/min) > 60 BUN/Creatinine Ratio (7 - 25 %) 24.0 Free T4 (0.78 - 2.44 ng/dL) 0.69 L Hematology CBC w Diff NO MAN DIFF REQ WBC (4.8 - 10.8 /CUMM) 6.9 RBC (4.20 - 5.40 /CUMM) 3.85 L Hgb (12.0 - 16.0 G/DL) 12.7 Hct (37 - 47 %) 38.2 MCV (81.0 - 99.0 FL) 99.3 H MCH (27.0 - 31.0 PG) 32.9 H MCHC (33.0 - 37.0 G/DL) 33.2 RDW (11.5 - 14.5 %) 14.1 Plt Count (130 - 400 /CUMM) 290 MPV (7.4 - 10.4 FL) 9.8 Gran % (42.2 - 75.2 %) 73.1 Lymphocytes % (20.5 - 51.1 %) 17.7 L Monocytes % (1.7 - 9.3 %) 7.3 Eosinophils % (0 - 5 %) 1.5 Basophils % (0.0 - 2.0 %) 0.4 Absolute Granulocytes (1.4 - 6.5 /CUMM) 5.0 Absolute Lymphocytes (1.2 - 3.4 /CUMM) 1.2 Absolute Monocytes (0.10 - 0.60 /CUMM) 0.5 Absolute Eosinophils (0.0 - 0.7 /CUMM) 0.1 Absolute Basophils (0.0 - 0.2 /CUMM) 0 Admission Meds I reviewed the following Meds: Current Medications Sig/Solitario Start time Last Medication Dose Stop Time Status Admin Acetaminophen 640 MG Q6P PRN 12/21 2030 AC 12/23 ([facility] 0628 Acetaminophen) Acetaminophen 1,000 MG Q6P PRN 12/18 0130 AC 12/20 (Ofirmev) 1800 N/A 1 UNIT (No Carrier) Aspirin 81 MG DAILY 12/18 0900 AC 12/23 (Aspirin) 0946 Cholestyramine Resin 1 PAC 4 TIMES/DAY 12/21 1700 AC 12/23 (Questran Light(W/ 0948 Nutrasweet)Pack) Citalopram 20 MG DAILY 12/18 0900 AC 12/23 Hydrobromide 0945 (Celexa) Enoxaparin Sodium 40 MG DAILY 12/18 0900 AC 12/23 (Lovenox) 0947 Famotidine 20 MG DAILY 12/18 0900 AC 12/23 (Pepcid) 0944 Gabapentin 300 MG TID 12/18 0011 AC 12/23 (Neurontin) 0945 Levothyroxine Sodium 0.025 MG DAILY AC 12/21 0700 AC 12/23 (Synthroid) 0528 Loratadine 10 MG DAILY 12/18 0900 AC 12/23 (Claritin) 0945 Mirtazapine 7.5 MG AT BEDTIME 12/18 2100 AC 12/22 (Remeron) 2030 Montelukast Sodium 10 MG DAILY 12/18 0900 AC 12/23 (Singulair) 0944 Propranolol HCl 20 MG QAM 12/18 0900 AC 12/23 (Inderal 20 MG 0946 Tablet) Sodium Chloride 2 SPRAY TID 12/20 1452 AC 12/23 (Nasal) 0950 Valacyclovir HCl 500 MG DAILY 12/18 0900 AC 12/23 (Valtrex) 0946 Vancomycin HCl 125 MG Q48 12/24 0900 AC Zinc Oxide 1 SORAYA BID 12/20 0900 AC 12/23 (Desitin) 3371
--- NOTE | 2017-12-23 11:09 | PN- Housestaff ---
Subjective Follow-up For: Chronic Diarrhea Subjective: Afebrile overnight. Patient is standing in the room and walking fine. Patient had one bowel movement this morning that was still watery, but more formed then prior episodes of diarrhea. Patient denies any other bowel movements overnight. Patient otherwise states she feels better today and has no complainsts of abdominal pain, chest pain, dyspnea, and fatigue. Patient states she is ready to go home today. Review of Systems Constitutional: Reports: see HPI. Objective Last 24 Hrs of Vital Signs/I&O Vital Signs Date Time Temp Pulse Resp B/P B/P Pulse O2 O2 Flow FiO2 Mean Ox Delivery Rate 12/23 0946 72 20 110/78 08/ 0612 97.8 59 20 98/70 98 Room Air 12/22 2046 97.8 73 16 100/72 98 Room Air 12/22 1600 97.7 73 20 98/60 99 Room Air / 1428 97.7 73 20 98/60 98 Intake & Output / 1600 /04 0800 12/23 0000 Intake Total 360 440 Output Total Balance 360 440 Intake, Tube 240 240 Feeding Intake, Tube 120 200 Irrigant Number 1 Bowel Movements Physical Exam General Appearance: Alert, Oriented X3, Cooperative, No Acute Distress HEENT: Atraumatic Neck: Supple, No JVD Cardiovascular: Regular Rate, Normal S1, Normal S2 Lungs: Clear to Auscultation, Normal Air Movement Neurological: Normal Gait Assessment/Plan Assessment: Assessment: She was able to obtain a stool sample to be sent for C. difficile PCR, which was negative. We start cholestyramine from yesterday. Which has reduced the diarrhea. She has COPD and emphysema but has never been on O2 as an outpatient. She is ready to be discharged. Diarrhea: C. difficile PCR results came back negative. GI consult was done. Plan: Cholestyramine is started and Vancomycine will be tapered as per ID consult. HIV Disease: She is back on her home mediacations for HIV. Plan: Continue current meds. Altered Mental Status: She is back to her normal baseline. Plan: We will follow her condition closely. Phsychiatrist has recommended Mirtazapine and Citalopram. Pulmonary Nodule: Per pricer bagger consult it is probably a primary malignancy based on prior PET /CT. Plan: She will follow up as an outpatient with pricer bagger. Problem List: 1. C. difficile diarrhea 2. AIDS 3. Depression Pain Ratin Pain Location: Not elicted Pain Goal: Remain pain free Pain Plan: Not elicited Tomorrow's Labs & Rationales: None indicated currently Consulting Request: Consulting Specialty: Psychiatry Consulting Physician: Nakita Colbert MD Reason for Consult: Suicidal Ideation
[2017-12-23] MEDS ORDERED: VANCOMYCIN HCL125 MG PO (12:40)
[2017-12-23] MEDS ORDERED: SYNTHROID25 MCG PO (12:40)
[2017-12-23] MEDS ORDERED: CHOLESTYRAMINE L4 GM PO (12:40)
== END 2017-12-23 13:20 | disposition home health service (06) | DRG 893 ==
LOC: ERH 17:30 → ERHI 21:15 → 2NA 21:15 → ENRESERV 23:06 → 2NA 12-18 00:15 → ENTRNSPT 12-23 12:57 → EDTRNSPT 12-23 13:07 → EDTRNSPTSTS 12-23 13:08 → 2NA 12-23 13:20 → CMPTRNSPT 12-23 13:22
PROVIDERS: Emergency Medicine; Student in an Organized Health Care Education/Training Program
DX: A04.72 Enterocolitis due to Clostridium difficile, not specified as recurrent (principal); B20 Human immunodeficiency virus [HIV] disease; E86.0 Dehydration; E87.2 Acidosis; E87.5 Hyperkalemia; C92.01 Acute myeloblastic leukemia, in remission; J44.9 Chronic obstructive pulmonary disease, unspecified; Z99.81 Dependence on supplemental oxygen; Z85.89 Personal history of malignant neoplasm of other organs and systems; G89.29 Other chronic pain; M54.9 Dorsalgia, unspecified; Z93.1 Gastrostomy status; Z91.5 Personal history of self-harm; R41.82 Altered mental status, unspecified; B37.0 Candidal stomatitis; C34.31 Malignant neoplasm of lower lobe, right bronchus or lung; K21.9 Gastro-esophageal reflux disease without esophagitis; B18.8 Other chronic viral hepatitis; Z91.81 History of falling; R91.1 Solitary pulmonary nodule; F17.210 Nicotine dependence, cigarettes, uncomplicated; F41.8 Other specified anxiety disorders; E88.89 Other specified metabolic disorders; Z66 Do not resuscitate; Z79.891 Long term (current) use of opiate analgesic; Z79.82 Long term (current) use of aspirin; Z79.51 Long term (current) use of inhaled steroids; R45.851 Suicidal ideations; R64 Cachexia; Z68.1 Body mass index [BMI] 19.9 or less, adult; Z92.25 Personal history of immunosuppression therapy
CPT/HCPCS: 2NAP; 86359; 87493; ERO; 36415; 74176; 80307; 81001; 82436; 87015; 87045; 87328; 87329; 87536; 87899; 87899-59; 93005; 93010; 96374; 96375; 97162-GP; G0480; J0131; J1650; J2405; J3101; J3490; J7042